=== PATIENT | male | born 1990 | race Hispanic/Latino ===

== ENCOUNTER 2018-01-27 11:28 | Inpatient (IN) | payer OTHER, SELFPAY ==
[2018-01-27 12:05] LABS: #Eosinphils 0.2 thou/uL (0.0-0.7); #Monocytes 1.3 thou/uL (0.11-0.59); #Neutrophils 9.4 thou/uL (1.40-6.50); %Basophils 0.3 % (0.0-1.0); %Eosinophils 1.9 % (0.0-10.0); %Lymphocytes 15.6 % (21.0-51.0); %Monocytes 9.7 % (0.0-10.0); %Neutrophils 72.5 % (42.0-75.0); Hemoglobin 16.3 g/dL (14.0-18.0); Mean Corpuscular HGB CONC 35.9 g/dL (32.0-36.0); Mean Corpuscular Hemoglobin 32.5 pg (27.0-31.0); Mean Corpuscular Volume 90.5 fL (78.0-98.0); Mean Platelet Volume 7.1 fL (7.4-10.4); Platelet Count 223 thou/uL (130-400); RBC Distribution Width 11.1 % (11.5-14.5); Red Blood Cell (RBC) Count 5.01 mill/uL (4.70-6.10); White Blood Cell (WBC) Count 12.9 thou/uL (4.8-10.8)
[2018-01-27 12:17] LABS: ALT (SGPT) 90 U/L (8-55); AST (SGOT) 43 U/L (5-34); Albumin 4.7 g/dL (3.5-5.0); Alkaline Phosphatase 101 U/L (40-150); Anion Gap 15 mmol/L (10-20); BUN (Urea Nitrogen) 20 mg/dL (8.9-20.6); Bilirubin, Total 1.1 mg/dL (0.2-1.2); Calc. Creatinine Clearance 0 mL/min (70-130); Calcium 9.7 mg/dL (7.8-10.44); Carbon Dioxide 24 mmol/L (22-29); Chloride 97 mmol/L (98-107); Estimated GFR-MDRD 83; Globulin 3.7 g/dL (2.4-3.5); Glucose 137 mg/dL (70-105); Lipase 839 U/L (8-78); Potassium 3.7 mmol/L (3.5-5.1); Protein, Total 8.4 g/dL (6.0-8.3); Sodium 132 mmol/L (136-145)
[2018-01-27] MEDS ORDERED: Ondansetron HCl/PF 4 MG/2 ML Vial ONE (12:21)
[2018-01-27] MEDS ORDERED: Pantoprazole 40 MG VIAL ONE (12:21)
[2018-01-27] MEDS ORDERED: Morphine 4 MG/ML VIAL ONE ×2 (12:21→14:27)
[2018-01-27 13:01] LABS: Bilirubin Small (Negative); Blood, Urine Negative (Negative); Clarity CLOUDY (Clear); Glucose, Urine (Dipstick) Negative (Negative); Leukocyte Negative (Negative); Nitrite Negative (Negative); Protein, Urine (Dipstick) 100 mg/dL (Neg-Trace); Specific Gravity, Urine 1.023 (1.002-1.036)
[2018-01-27 13:03] LABS: Bacteria/HPF None Seen HPF (None Seen); Hyaline Casts/LPF 7-10 HYALINE CAST LPF (0-3 Hyaline); Pathc Cast-AUWi Flag 1.59 (0-2.49); Squamous Epithelial 0-3 HPF (0-3); WBC/HPF 0-3 HPF (0-3)
--- NOTE | 2018-01-27 13:52 | ULT ---
GALLBLADDER ULTRASOUND: INDICATION: Upper abdominal pain. FINDINGS: There is increased echogenicity of the hepatic parenchyma. The liver is prominent in size measuring 21 cm in length. There is no acute gallbladder pathology. Man's sign is reported as negative. T here is borderline size of the common duct at 6 mm. No ascites. IMPRESSION: 1. Findings indicate hepatic steatosis which can be further assessed with liver function enzymes. 2. No acute gallbladder pathology. There is borderline size of the imaged common duct. Recommend c orrelation with biliary laboratory values. POS: [facility]
[2018-01-27 14:25] LABS: Magnesium 2.5 mg/dL (1.6-2.6); Phosphorus 3.3 mg/dL (2.3-4.7)
[2018-01-27] MEDS ORDERED: Multivitamins, Adult 10 ML, Thiamine HCl 100 MG, Folic Acid 1 MG in Dextrose 5 %-0.45 %... IV SCH (14:30)
[2018-01-27] MEDS ORDERED: Dextrose 5 %-0.45 % NaCl 1,000 ML IV SCH (16:15)
[2018-01-27] MEDS ORDERED: Ondansetron ODT 4 MG TAB SL PRN (16:16)
[2018-01-27] MEDS ORDERED: Acetaminophen 325 MG TAB PO PRN ×2 (16:16→17:23)
[2018-01-27] MEDS ORDERED: HYDROcodone/Acetaminophen 5/325 mg Tablet PO PRN ×2 (16:16)
[2018-01-27] MEDS ORDERED: Ondansetron HCl/PF 4 MG/2 ML Vial IVP PRN ×2 (16:16→17:23)
[2018-01-27] MEDS ORDERED: Lorazepam 2 MG/ML VIAL SLOW IVP PRN ×2 (16:16→18:53)
[2018-01-27] MEDS ORDERED: Morphine 4 MG/ML VIAL SLOW IVP PRN (16:16)
[2018-01-27 16:56] VITALS: BMI 30.1
[2018-01-27] MEDS ORDERED: Calcium Carbonate 500 MG ChewTAB PO PRN (17:23)
[2018-01-27] MEDS ORDERED: Mag-Al 1200 mg/1200 mg/30 ML UDCUP PO PRN (17:23)
[2018-01-27] MEDS ORDERED: Lorazepam 1 MG TAB PO PRN (17:23)
[2018-01-27] MEDS ORDERED: Ondansetron ODT 4 MG TAB PO PRN (17:23)
[2018-01-27] MEDS: Dextrose 5 %-0.45 % NaCl 1,000 ML IV SCH (18:29)
[2018-01-27] MEDS ORDERED: hydrALAZINE 20 MG/ML VIAL SLOW IVP PRN (19:00)
--- NOTE | 2018-01-27 19:46 | HP ---
DATE OF ADMISSION: 01/27/2018 PRIMARY CARE PHYSICIAN: [facility]. CHIEF COMPLAINT: Abdominal discomfort of 3 days' duration. HISTORY OF PRESENT ILLNESS: Patient is a 27-year-old male with heavy alcohol abuse who presented to the hospital with sudden onset of epigastric pain that started 3 days ago. He felt nauseous; however, denies any vomiting. He is unable to eat due to pain. The pain gets worse with eating. He denies any diarrhea, hematochezia, melena or hematemesis. He drinks up to 12-pack beer on a daily basis. No fever or chills reported. He denies any relieving factor. His last alcohol drink was 3 days ago. PAST MEDICAL HISTORY: Reviewed with the patient and none. PAST SURGICAL HISTORY: Reviewed with the patient and none. ALLERGIES: Patient denies any drug allergies. CURRENT HOME MEDICATIONS: Reviewed with the patient and none. SOCIAL HISTORY: Patient drinks up to 12 pack beer on a daily basis. No smoking or drug use. FAMILY HISTORY: Negative for heart disease or GI issues. REVIEW OF SYSTEMS: The following complete review of systems was negative, unless otherwise mentioned in the HPI or below: Constitutional: Weight loss or gain, ability to conduct usual activities. Skin: Rash, itching. Eyes: Double vision, pain. ENT/Mouth: Nose bleeding, neck stiffness, pain, tenderness. Cardiovascular: Palpitations, dyspnea on exertion, orthopnea. Respiratory: Shortness of breath, wheezing, cough, hemoptysis, fever or night sweats. Gastrointestinal: Poor appetite, abdominal pain, heartburn, nausea, vomiting, constipation, or diarrhea. Genitourinary: Urgency, frequency, dysuria, nocturia. Musculoskeletal: Pain, swelling. Neurologic/Psychiatric: Anxiety, depression. Allergy/Immunologic: Skin rash, bleeding tendency. PHYSICAL EXAMINATION: VITAL SIGNS: In the emergency room showed temperature 99.3, respirations 18, pulse rate of 84, blood pressure 147/106 with O2 saturation 96% on room air. GENERAL: A 27-year-old male in mild distress due to abdominal discomfort. HEENT: Head atraumatic, normocephalic, sclerae are anicteric. Dry mucous membrane, no oral lesion. NECK: Supple, no JVD, no carotid bruit. LUNGS: Clear to auscultation bilaterally, no wheezing, rales or rhonchi. HEART: S1, S2 present. Regular rate and rhythm. No murmur, rubs, or gallops appreciated. ABDOMEN: Soft, diffuse tenderness mainly over the epigastric region, no rebound , guarding, no costovertebral angle tenderness. EXTREMITIES: No edema or calf tenderness. NEUROLOGIC: Grossly nonfocal, moves all four extremities. PSYCHIATRY: Alert, awake, oriented x3. SKIN: Warm and dry. LYMPH NODES: No palpable lymph nodes in the neck. PERIPHERAL VASCULAR: Radial pulses palpable bilaterally. MUSCULOSKELETAL: No joint swelling or tenderness. LABORATORY AND X-RAY FINDINGS: CBC showed WBC 12.9 with hemoglobin 16.3, hematocrit 45.3, platelets 223. Chemistry showed sodium 132, potassium 3.7, chloride 97, bicarbonate 24, BUN 20, creatinine 1.06, AST 43, ALT 90. CRP 17.6 , triglyceride 148, lipase 839. Urinalysis showed hyaline cast. Right upper quadrant ultrasound was negative for cholelithiasis. It showed findings consistent with hepatic steatosis. IMPRESSION AND PLAN: 1. SIRS due to Acute alcoholic pancreatitis. 2. Leukocytosis secondary to #1. 3. Obesity with a BMI 30.1. 4. Chronic alcoholism. 5. Abnormal liver function tests secondary to chronic alcohol use. 6. Hepatic steatosis, on ultrasound. 7. Hyponatremia, probably secondary to dehydration. 8. Elevated inflammatory markers. PLAN: Patient will be monitored on the medical floor. We will get vitals every 4 hourly. We will check orthostatic vitals every morning. We will start him on IV fluids with dextrose at 200 mL an hour. Gastrointestinal prophylaxis. Pain control. Alcohol withdrawal protocol. Anti-emetics. We will repeat labs and lipase in a.m. Plan of care was discussed with the patient and he stated understanding. Patient was extensively counseled to quit alcohol abuse. MARTÍN
[2018-01-27] MEDS: Famotidine/PF 20 mg/2ml Vial SLOW IVP SCH (21:25)
[2018-01-28] MEDS: Dextrose 5 %-0.45 % NaCl 1,000 ML IV SCH ×6 (01:45→20:37)
[2018-01-28 04:57] LABS: ALT (SGPT) 69 U/L (8-55); AST (SGOT) 40 U/L (5-34); Albumin 3.9 g/dL (3.5-5.0); Alkaline Phosphatase 77 U/L (40-150); Anion Gap 12 mmol/L (10-20); BUN (Urea Nitrogen) 11 mg/dL (8.9-20.6); Bilirubin, Total 0.8 mg/dL (0.2-1.2); Calc. Creatinine Clearance 159 mL/min (70-130); Calcium 9.2 mg/dL (7.8-10.44); Carbon Dioxide 26 mmol/L (22-29); Chloride 101 mmol/L (98-107); Estimated GFR-MDRD Greater than 90; Globulin 3.1 g/dL (2.4-3.5); Glucose 169 mg/dL (70-105); Lipase 585 U/L (8-78); Potassium 3.6 mmol/L (3.5-5.1); Sodium 135 mmol/L (136-145)
[2018-01-28] MEDS: Multivit, Therapeutic 1 TAB PO SCH (08:53)
[2018-01-28] MEDS: Folic Acid 1 MG TAB PO SCH (08:53)
[2018-01-28] MEDS: Famotidine/PF 20 mg/2ml Vial SLOW IVP SCH ×2 (08:53→20:36)
--- NOTE | 2018-01-28 18:59 | PDOC.PN ---
- Subjective Encounter Start Date: 01/28/18 Encounter Start Time: 16:30 Patient seen and examined for Pancreatitis. Abd pain 09/16. No N/V. No new complaints. No overnight events - Objective Resuscitation Status: Resuscitation Status FULL:Full Resuscitation MAR Reviewed: Yes Vital Signs & Weight: Vital Signs (12 hours) Temp Pulse Resp BP BP Pulse Ox 01/28/18 16:16 98.5 F 62 16 142/85 H 98 01/28/18 12:30 98.1 F 64 16 139/88 94 L 01/28/18 12:00 139/88 01/28/18 08:00 99.1 F 63 16 118/72 98 01/28/18 07:44 99.1 F 63 16 118/72 98 Weight Weight 198 lb I&O: 01/27/18 01/28/18 01/29/18 06:59 06:59 06:59 Intake Total 1383 2400 Output Total 450 Balance 933 2400 Result Diagrams: 01/27/18 11:48 01/28/18 04:23 Phys Exam - Physical Examination Constitutional: NAD Respiratory: no wheezing, no rales, no rhonchi, clear to auscultation bilateral Cardiovascular: RRR, no significant murmur, no rub no heaves/pulsations Gastrointestinal: soft, no distention, positive bowel sounds minimal epig tenderness Musculoskeletal: no edema, pulses present Neurological: non-focal, normal sensation, moves all 4 limbs Psychiatric: normal affect, A&O x 3 Dx/Plan - Plan DVT proph w/SCDs IMPRESSION: 1. SIRS due to Acute alcoholic pancreatitis. 2. Leukocytosis secondary to #1. 3. Obesity with a BMI 30.1. 4. Chronic alcoholism. 5. Abnormal liver function tests secondary to chronic alcohol use. 6. Hepatic steatosis, on ultrasound. 7. Hyponatremia, probably secondary to dehydration. 8. Elevated inflammatory markers. PLAN: Reduce IVF to 125 ml/hr AM labs Cont Morphine PRN Try clear liqd diet Cont alcohol withdrawal protocol Cont Thiamine/Folic acid/MVM Cont other meds as below Laboratory Tests 01/27/18 01/28/18 11:48 04:23 AST 40 H ALT 69 H Amylase 165.0 H Lipase 839 H 585 H Review of Systems - Review of Systems Respiratory: negative: Cough, Dry, Shortness of Breath, Hemoptysis, SOB with Excertion, Pleuritic Pain, Sputum, Wheezing Cardiovascular: negative: chest pain, palpitations, orthopnea, paroxysmal nocturnal dyspnea, edema, light headedness, other Gastrointestinal: Abdominal Pain. negative: Nausea, Vomiting, Diarrhea, Constipation, Melena, Hematochezia, Other - Medications/Allergies Allergies/Adverse Reactions: Allergies Allergy/AdvReac Type Severity Reaction Status Date / Time No Known Allergies Allergy Verified 01/27/18 16:59 Medications: Current Medications Acetaminophen (Tylenol) 650 mg PO Q4H PRN PRN Reason: Headache/Fever or Pain Al Hydroxide/Mg Hydroxide (Maalox) 30 ml PO Q6H PRN PRN Reason: Heartburn or Indigestion Calcium Carbonate (Tums) 1,000 mg PO Q4H PRN PRN Reason: Heartburn or Indigestion Famotidine (Pepcid) 20 mg SLOW IVP Q12HR [facility] Last Admin: 01/28/18 08:53 Dose: 20 mg Folic Acid (Folvite) 1 mg PO DAILY [facility] Last Admin: 01/28/18 08:53 Dose: 1 mg Hydralazine HCl (Apresoline) 10 mg SLOW IVP Q4H PRN PRN Reason: SBP Greater Than 180 Dextrose/Sodium Chloride (D5 1/2 Ns) 1,000 mls @ 125 mls/hr IV .Q8H [facility] Lorazepam (Ativan) 1 mg PO Q4H PRN PRN Reason: ASE >=9 Lorazepam (Ativan) 1 mg SLOW IVP Q4H PRN PRN Reason: ASE >=9 Morphine Sulfate (Morphine) 2 mg SLOW IVP Q4H PRN PRN Reason: Pain Stop: 01/29/18 17:24 Last Admin: 01/27/18 21:26 Dose: 2 mg Multivitamins (Theragran) 1 tab PO DAILY [facility] Last Admin: 01/28/18 08:53 Dose: 1 tab Ondansetron HCl (Zofran Odt) 4 mg PO Q6H PRN PRN Reason: Nausea/Vomiting Ondansetron HCl (Zofran) 4 mg IVP Q6H PRN PRN Reason: Nausea/Vomiting Thiamine HCl (Thiamine) 100 mg PO DAILY [facility] Last Admin: 01/28/18 08:53 Dose: 100 mg
[2018-01-29] MEDS: Dextrose 5 %-0.45 % NaCl 1,000 ML IV SCH ×3 (04:38→20:50)
[2018-01-29 05:46] LABS: Anion Gap 10 mmol/L (10-20); BUN (Urea Nitrogen) 6 mg/dL (8.9-20.6); Calc. Creatinine Clearance 177 mL/min (70-130); Calcium 9.1 mg/dL (7.8-10.44); Carbon Dioxide 27 mmol/L (22-29); Chloride 104 mmol/L (98-107); Estimated GFR-MDRD Greater than 90; Glucose 138 mg/dL (70-105); Lipase 963 U/L (8-78); Magnesium 2.1 mg/dL (1.6-2.6); Potassium 3.7 mmol/L (3.5-5.1); Sodium 137 mmol/L (136-145)
[2018-01-29] MEDS: Multivit, Therapeutic 1 TAB PO SCH (08:38)
[2018-01-29] MEDS: Folic Acid 1 MG TAB PO SCH (08:38)
[2018-01-29] MEDS: Famotidine/PF 20 mg/2ml Vial SLOW IVP SCH (10:02)
[2018-01-29] MEDS: Famotidine 20 MG TAB PO SCH (20:50)
--- NOTE | 2018-01-29 22:47 | PDOC.PN ---
- Subjective Encounter Start Date: 01/29/18 Encounter Start Time: 14:00 Patient seen and examined for Acute Pancreatitis. No new complaints. No overnight events - Objective Resuscitation Status: Resuscitation Status FULL:Full Resuscitation MAR Reviewed: Yes Vital Signs & Weight: Vital Signs (12 hours) Temp Pulse Resp BP BP BP BP 01/29/18 20:33 97.5 F L 54 L 18 140/85 01/29/18 20:00 97.5 F L 54 L 18 01/29/18 17:08 98.3 F 72 16 147/90 H 167/95 H 160/81 H 01/29/18 16:00 147/90 H 01/29/18 12:00 126/76 01/29/18 11:12 98.2 F 53 L 18 126/76 Pulse Ox 01/29/18 20:33 99 01/29/18 20:00 01/29/18 17:08 99 01/29/18 16:00 01/29/18 12:00 01/29/18 11:12 99 Weight Weight 198 lb I&O: 01/28/18 01/29/18 01/30/18 06:59 06:59 06:59 Intake Total 1383 3900 2400 Output Total 450 Balance 933 3900 2400 Result Diagrams: 01/30/18 04:09 01/30/18 04:09 Additional Labs: Laboratory Tests 01/28/18 01/29/18 04:23 03:36 Amylase 165.0 H Lipase 585 H 963 H Phys Exam - Physical Examination Constitutional: NAD Respiratory: no wheezing, no rales, no rhonchi, clear to auscultation bilateral Cardiovascular: RRR, no significant murmur, no rub no heaves Gastrointestinal: soft, no distention, positive bowel sounds mild epig tenderness, No rebound Musculoskeletal: no edema Neurological: moves all 4 limbs Dx/Plan - Plan DVT proph w/SCDs IMPRESSION: 1. SIRS due to Acute alcoholic pancreatitis. 2. Leukocytosis secondary to #1. 3. Obesity with a BMI 30.1. 4. Chronic alcoholism. on ASE protocol 5. Abnormal liver function tests secondary to chronic alcohol use. 6. Hepatic steatosis, on ultrasound. 7. Hyponatremia, probably secondary to dehydration. 8. Elevated inflammatory markers. PLAN: Cont IVF at 125 ml/hr Cont clear liqd diet AM labs Cont Morphine PRN Cont alcohol withdrawal protocol Cont Thiamine/Folic acid/MVM Cont other meds as below Consult GI due to rising Lipase level Review of Systems - Review of Systems Respiratory: negative: Cough, Dry, Shortness of Breath, Hemoptysis, SOB with Excertion, Pleuritic Pain, Sputum, Wheezing Cardiovascular: negative: chest pain, palpitations, orthopnea, paroxysmal nocturnal dyspnea, edema, light headedness, other - Medications/Allergies Allergies/Adverse Reactions: Allergies Allergy/AdvReac Type Severity Reaction Status Date / Time No Known Allergies Allergy Verified 01/27/18 16:59 Medications: Current Medications Acetaminophen (Tylenol) 650 mg PO Q4H PRN PRN Reason: Headache/Fever or Pain Al Hydroxide/Mg Hydroxide (Maalox) 30 ml PO Q6H PRN PRN Reason: Heartburn or Indigestion Calcium Carbonate (Tums) 1,000 mg PO Q4H PRN PRN Reason: Heartburn or Indigestion Famotidine (Pepcid) 20 mg PO BID [facility] Last Admin: 01/29/18 20:50 Dose: 20 mg Folic Acid (Folvite) 1 mg PO DAILY [facility] Last Admin: 01/29/18 08:38 Dose: 1 mg Hydralazine HCl (Apresoline) 10 mg SLOW IVP Q4H PRN PRN Reason: SBP Greater Than 180 Dextrose/Sodium Chloride (D5 1/2 Ns) 1,000 mls @ 125 mls/hr IV .Q8H [facility] Last Admin: 01/29/18 20:50 Dose: 1,000 mls Lorazepam (Ativan) 1 mg PO Q4H PRN PRN Reason: ASE >=9 Morphine Sulfate (Morphine) 2 mg SLOW IVP Q4H PRN PRN Reason: Pain Stop: 01/31/18 13:50 Multivitamins (Theragran) 1 tab PO DAILY [facility] Last Admin: 01/29/18 08:38 Dose: 1 tab Ondansetron HCl (Zofran Odt) 4 mg PO Q6H PRN PRN Reason: Nausea/Vomiting Ondansetron HCl (Zofran) 4 mg IVP Q6H PRN PRN Reason: Nausea/Vomiting Thiamine HCl (Thiamine) 100 mg PO DAILY [facility] Last Admin: 01/29/18 08:38 Dose: 100 mg
--- NOTE | 2018-01-30 01:11 | CON ---
DATE OF CONSULTATION: 01/29/2018 REASON FOR CONSULTATION: Pancreatitis. HISTORY OF PRESENT ILLNESS: Mr. Schmidt was admitted to the hospital on 01/27/2018 from the emergen cy room. He reports for about 2-3 days before admission he had epigastric pain, constant. It was no nradiating. He was drinking about 12-pack of beer a day. He states he has never had anything like t his before and he has never been in the hospital for. He had no hematemesis or nausea or vomiting. Presently, he has only pain if he presses in the area and he is getting his appetite back in fact the stomach is grumbling. He was on n.p.o. and then started on liquids yesterday, but today his lipase went up to a little bit. The patient denies any family history of pancreatitis. Denies any history of IV drug use or smoking or taking other medications. PAST MEDICAL HISTORY: Negative. PAST SURGICAL HISTORY: Negative. MEDICATIONS AT HOME: None. PRESENT MEDICATIONS: Tylenol, D5 half normal at 125 an hour, Pepcid, presentlymorphine, Theragran, Z ofran, thiamine, and multivitamin. FAMILY HISTORY: Negative for pancreatic disease. PHYSICAL EXAMINATION: VITAL SIGNS: Temperature is 98, pulse 72 and 67 on admission, blood pressure 160/81. GENERAL: He is sitting comfortably in bed. He has got a tattoo on his left arm. He is in no distre ss. He is alert and oriented. Conversation is through a conductor sleeping car. He speaks Ukrainian and [place]. LUNGS: Clear. HEART: Regular rate and rhythm without clicks or murmurs. ABDOMEN: Soft, nontender, without palpable hepatosplenomegaly. SKIN: Without rash or lesions. There is no evidence of bruising in the flank or periumbilical area. Skin is warm and dry. NEUROLOGIC: Intact. No evidence of hyperreflexia or asterixis. LABORATORY STUDIES: White count was 12.9 on admission, hemoglobin 16.3 on admission, platelet count on admission. Sodium 137, potassium 3.7, chloride 104, bicarbonate 26, BUN 6, creatinine 0.7. Lipase was 839 on admission, 585 yesterday and 963 this morning. Bilirubin is 1.1. AST and ALT wer e 43 and 90, that were 40 and 69 today. Bilirubin is 0.8. ASSESSMENT AND PLAN: 1. Pancreatitis, likely alcoholic pancreatitis. He did have a normal triglycerides on admission and had no evidence of gallstones on ultrasound. He did have some fatty liver. 2. Elevated ALT and AST, ALT greater than AST with some fatty liver, there was increased echogenicit y of the liver and slight hepatomegaly. 3. Overall, the patient is improved clinically, but his lipase has bumped up a bit. He has tolerate d liquids. He was going to go to full, but however they bumped back to liquids again. I suspect ful l recovery. He is not tachycardic. He has no signs of systemic inflammatory response and seems to b e well hydrated. I would check his lipase again tomorrow and CBC and renal function. If these gisela nue to improve, I think we can go ahead and advance him to a bland diet.
[2018-01-30] MEDS: Dextrose 5 %-0.45 % NaCl 1,000 ML IV SCH ×3 (02:14→19:08)
[2018-01-30 04:26] LABS: #Basophils 0.1 thou/uL (0.0-0.2); #Eosinphils 0.5 thou/uL (0.0-0.7); #Lymphocytes 1.8 thou/uL (1.20-3.40); #Monocytes 0.7 thou/uL (0.11-0.59); #Neutrophils 3.2 thou/uL (1.40-6.50); %Basophils 1.1 % (0.0-1.0); %Eosinophils 7.6 % (0.0-10.0); %Lymphocytes 29.2 % (21.0-51.0); %Monocytes 10.8 % (0.0-10.0); %Neutrophils 51.4 % (42.0-75.0); Hemoglobin 14.7 g/dL (14.0-18.0); Mean Corpuscular Hemoglobin 31.4 pg (27.0-31.0); Mean Corpuscular Volume 92.2 fL (78.0-98.0); Mean Platelet Volume 6.7 fL (7.4-10.4); Platelet Count 258 thou/uL (130-400); RBC Distribution Width 10.9 % (11.5-14.5); Red Blood Cell (RBC) Count 4.69 mill/uL (4.70-6.10); White Blood Cell (WBC) Count 6.2 thou/uL (4.8-10.8)
[2018-01-30 05:18] LABS: Anion Gap 12 mmol/L (10-20); BUN (Urea Nitrogen) 5 mg/dL (8.9-20.6); Calc. Creatinine Clearance 170 mL/min (70-130); Calcium 9.3 mg/dL (7.8-10.44); Carbon Dioxide 24 mmol/L (22-29); Chloride 107 mmol/L (98-107); Estimated GFR-MDRD Greater than 90; Glucose 139 mg/dL (70-105); Magnesium 2.1 mg/dL (1.6-2.6); Potassium 3.9 mmol/L (3.5-5.1); Sodium 139 mmol/L (136-145)
[2018-01-30 05:39] LABS: Lipase 2511 U/L (8-78)
[2018-01-30] MEDS: Famotidine 20 MG TAB PO SCH ×2 (10:02→19:55)
[2018-01-30] MEDS: Folic Acid 1 MG TAB PO SCH (10:02)
[2018-01-30] MEDS: Multivit, Therapeutic 1 TAB PO SCH (10:02)
--- NOTE | 2018-01-30 11:41 | CT ---
CT ABDOMEN WITH CONTRAST: Date: 01/30/18 HISTORY: Alcoholic pancreatitis. COMPARISON: Ultrasound dated 01/27/18. FINDINGS: Lung bases are clear. No pericardial effusion. Diffuse hepatic steatosis. There is acute interstitial edematous pancreatitis of the pancreatic body and tail. No fluid collecti on. No evidence of necrosis. The splenic artery and splenic vein are both patent. Adrenal glands are normal. No hydronephrosis. The aortic contour is nonaneurysmal. Reactive changes of the second and third portions of the duodenum. IMPRESSION: 1. Interstitial edematous pancreatitis without evidence of necrosis. No walled off fluid collection nor pseudocyst formation. 2. Diffuse hepatic steatosis. POS: [facility]
[2018-01-30] MEDS ORDERED: ISOVUE-370 76%-LOCM 1 ML ONE (14:49)
--- NOTE | 2018-01-30 21:57 | PDOC.PN ---
- Subjective Encounter Start Date: 01/30/18 Encounter Start Time: 08:30 Patient seen and examined for Acute Pancreatitis. Mild Epig pain+No new complaints. No overnight events - Objective Resuscitation Status: Resuscitation Status FULL:Full Resuscitation MAR Reviewed: Yes Vital Signs & Weight: Vital Signs (12 hours) Temp Pulse Resp BP BP BP BP 01/30/18 20:48 100.6 F H 69 18 170/89 H 01/30/18 20:00 100.6 F H 69 20 01/30/18 16:00 98.1 F 54 L 20 157/89 H 157/89 H 01/30/18 12:00 177/90 H 01/30/18 11:00 98.5 F 55 L 18 177/90 H Pulse Ox 01/30/18 20:48 99 01/30/18 20:00 01/30/18 16:00 98 01/30/18 12:00 01/30/18 11:00 99 Weight Weight 198 lb I&O: 01/29/18 01/30/18 01/31/18 06:59 06:59 06:59 Intake Total 3900 3900 2575 Balance 3900 3900 2575 Result Diagrams: 01/30/18 04:09 01/30/18 04:09 Additional Labs: Laboratory Tests 01/28/18 01/29/18 01/30/18 04:23 03:36 04:09 Amylase 165.0 H Lipase 585 H 963 H 2511 H Phys Exam - Physical Examination Constitutional: NAD Respiratory: no wheezing, no rales, no rhonchi, clear to auscultation bilateral Cardiovascular: RRR, no rub no heaves/pulsations Gastrointestinal: soft, no distention, positive bowel sounds Epig tenderness/ No rebound Neurological: moves all 4 limbs Dx/Plan - Plan out of bed/ambulate, DVT proph w/SCDs IMPRESSION: 1. SIRS due to Acute alcoholic pancreatitis. 2. Leukocytosis secondary to #1. 3. Obesity with a BMI 30.1. 4. Chronic alcoholism. on ASE protocol 5. Abnormal liver function tests secondary to chronic alcohol use. 6. Hepatic steatosis, on ultrasound. 7. Hyponatremia, probably secondary to dehydration. 8. Elevated inflammatory markers. PLAN: CT Abd due to rising lipase GI followign Cont IVF Cont clear liqd diet AM labs Cont alcohol withdrawal protocol /thiamine/Folic acid/MVM Cont other meds as below Review of Systems - Review of Systems Respiratory: negative: Cough, Dry, Shortness of Breath, Hemoptysis, SOB with Excertion, Pleuritic Pain, Sputum, Wheezing Cardiovascular: negative: chest pain, palpitations, orthopnea, paroxysmal nocturnal dyspnea, edema, light headedness, other - Medications/Allergies Allergies/Adverse Reactions: Allergies Allergy/AdvReac Type Severity Reaction Status Date / Time No Known Allergies Allergy Verified 01/27/18 16:59 Medications: Current Medications Acetaminophen (Tylenol) 650 mg PO Q4H PRN PRN Reason: Headache/Fever or Pain Al Hydroxide/Mg Hydroxide (Maalox) 30 ml PO Q6H PRN PRN Reason: Heartburn or Indigestion Calcium Carbonate (Tums) 1,000 mg PO Q4H PRN PRN Reason: Heartburn or Indigestion Last Admin: 01/30/18 18:00 Dose: 1,000 mg Famotidine (Pepcid) 20 mg PO BID [facility] Last Admin: 01/30/18 19:55 Dose: 20 mg Folic Acid (Folvite) 1 mg PO DAILY [facility] Last Admin: 01/30/18 10:02 Dose: 1 mg Hydralazine HCl (Apresoline) 10 mg SLOW IVP Q4H PRN PRN Reason: SBP Greater Than 180 Dextrose/Sodium Chloride (D5 1/2 Ns) 1,000 mls @ 125 mls/hr IV .Q8H [facility] Last Admin: 01/30/18 19:08 Dose: 1,000 mls Lorazepam (Ativan) 1 mg PO Q4H PRN PRN Reason: ASE >=9 Morphine Sulfate (Morphine) 2 mg SLOW IVP Q4H PRN PRN Reason: Pain Stop: 01/31/18 13:50 Last Admin: 01/30/18 19:56 Dose: 2 mg Multivitamins (Theragran) 1 tab PO DAILY [facility] Last Admin: 01/30/18 10:02 Dose: 1 tab Ondansetron HCl (Zofran Odt) 4 mg PO Q6H PRN PRN Reason: Nausea/Vomiting Ondansetron HCl (Zofran) 4 mg IVP Q6H PRN PRN Reason: Nausea/Vomiting Thiamine HCl (Thiamine) 100 mg PO DAILY [facility] Last Admin: 01/30/18 10:02 Dose: 100 mg
[2018-01-31] MEDS: Dextrose 5 %-0.45 % NaCl 1,000 ML IV SCH ×3 (02:19→17:18)
--- NOTE | 2018-01-31 02:39 | PRG ---
DATE OF SERVICE: 01/30/2018 SUBJECTIVE: Mr. Schmidt is not complaining of any pain. He has lipase and prior history of a CAT s can. PHYSICAL EXAMINATION: VITAL SIGNS: Temperature is 98, pulse 137/98. ABDOMEN: Soft, slightly tender in epigastric. No rebound or guarding. EXTREMITIES: No clubbing, cyanosis or edema. LABORATORY STUDIES: White count 6.2, hemoglobin 14.7 down from 16.3 on admission, platelet count 258 . Sodium 138, potassium 3.9, BUN and creatinine are 5 and 0.82, glucose 139, magnesium 2.1, lipase [address] scan shows just interstitial inflammation of the pancreas, somewhat appearance of the sausage panc reas and autoimmune pancreatitis would be considered, although there is no evidence of pseudocyst or fluid collection in the abdomen and pelvis. RECOMMENDATIONS: 1. Continue on liquid diet. 2. We will continue IV fluids. 3. We will continue ulcer prophylaxis, does receive multivitamin, thiamine, and folate. 4. We will monitor lipase ____ trend down at least before he goes home. ____ n.p.o. again.
[2018-01-31 05:24] LABS: ALT (SGPT) 81 U/L (8-55); AST (SGOT) 48 U/L (5-34); Albumin 3.7 g/dL (3.5-5.0); Alkaline Phosphatase 76 U/L (40-150); Anion Gap 10 mmol/L (10-20); BUN (Urea Nitrogen) Less than 4 mg/dL (8.9-20.6); Bilirubin, Total 0.6 mg/dL (0.2-1.2); Calc. Creatinine Clearance 155 mL/min (70-130); Carbon Dioxide 28 mmol/L (22-29); Chloride 101 mmol/L (98-107); Estimated GFR-MDRD Greater than 90; Globulin 3.1 g/dL (2.4-3.5); Glucose 129 mg/dL (70-105); Potassium 3.4 mmol/L (3.5-5.1); Protein, Total 6.8 g/dL (6.0-8.3); Sodium 136 mmol/L (136-145)
[2018-01-31 05:39] LABS: Lipase 3143 U/L (8-78)
[2018-01-31] MEDS: Folic Acid 1 MG TAB PO SCH (08:14)
[2018-01-31] MEDS: Famotidine 20 MG TAB PO SCH ×2 (08:14→19:49)
[2018-01-31] MEDS: Multivit, Therapeutic 1 TAB PO SCH (08:15)
[2018-01-31 12:41] LABS: ANA Symphony (Qualitative) Negative (Negative); dsDNA IgG Antibody 5.8 IU/mL (<10 Negative)
--- NOTE | 2018-01-31 14:50 | PDOC.PN ---
- Subjective Encounter Start Date: 01/31/18 Encounter Start Time: 14:48 Subjective: c/o persistant mild to mederate Abd pain .no nausea/vomiting - Objective Resuscitation Status: Resuscitation Status FULL:Full Resuscitation MAR Reviewed: Yes Vital Signs & Weight: Vital Signs (12 hours) Temp Pulse Resp BP BP BP Pulse Ox 01/31/18 12:00 141/89 H 01/31/18 11:00 98.6 F 68 18 141/89 H 98 01/31/18 08:00 98.5 F 78 20 149/98 H 174/98 H 98 01/31/18 04:00 98.3 F 77 16 132/78 132/78 98 Weight Weight 198 lb I&O: 01/30/18 01/31/18 02/01/18 06:59 06:59 06:59 Intake Total 3900 4075 Balance 3900 4075 Result Diagrams: 01/30/18 04:09 01/31/18 04:11 Additional Labs: Laboratory Tests 01/27/18 01/27/18 01/28/18 11:48 11:48 04:23 WBC 12.9 H AST 43 H 40 H ALT 90 H 69 H Lipase 839 H 585 H CALVIN Screen CALVIN IgG Screen Anti-ds DNA IgG Ab 01/29/18 01/30/18 01/30/18 03:36 04:09 04:09 WBC 6.2 AST ALT Lipase 963 H 2511 H CALVIN Screen CALVIN IgG Screen Anti-ds DNA IgG Ab 01/31/18 01/31/18 04:11 04:11 WBC AST 48 H ALT 81 H Lipase 3143 H CALVIN Screen Negative CALVIN IgG Screen Negative Anti-ds DNA IgG Ab 5.8 labs reviewed Radiology Reviewed by me: Yes (CT Abd/pelvis- no pancreatic necrosis or psedocyst formation) Phys Exam - Physical Examination Constitutional: NAD HEENT: PERRLA, moist MMs, sclera anicteric, oral pharynx no lesions Neck: no nodes, no JVD, supple, full ROM Respiratory: no wheezing, no rales, no rhonchi, clear to auscultation bilateral Cardiovascular: RRR, no significant murmur, no rub Gastrointestinal: soft, no distention, positive bowel sounds TTP in central abdomen Musculoskeletal: no edema, pulses present Neurological: non-focal, normal sensation, moves all 4 limbs Psychiatric: normal affect, A&O x 3 Skin: no rash Dx/Plan (1) Hypokalemia Code(s): E87.6 - HYPOKALEMIA Status: Acute - Plan cont ASE protocol.MV,Thiamine,Folic acid * .IMPRESSION: 1. SIRS due to Acute alcoholic pancreatitis. 2. Leukocytosis secondary to #1. 3. Obesity with a BMI 30.1. 4. Chronic alcoholism. on ASE protocol 5. Abnormal liver function tests secondary to chronic alcohol use. 6. Hepatic steatosis, on ultrasound. 7. Hyponatremia, probably secondary to dehydration. 8. Elevated inflammatory markers. PLAN- Elevated lipase.will change to NPO. Cont IVF. monitor clinically. GI following. Workup for AIH. AM labs. hemodynamically stable. Review of Systems - Review of Systems Constitutional: weakness, malaise. negative: fever, chills, sweats, other ENT: negative: Ear Pain, Ear Discharge, Nose Pain, Nose Discharge, Nose Congestion, Mouth Pain, Mouth Swelling, Throat Pain, Throat Swelling, Other Respiratory: negative: Cough, Dry, Shortness of Breath, Hemoptysis, SOB with Excertion, Pleuritic Pain, Sputum, Wheezing Cardiovascular: negative: chest pain, palpitations, orthopnea, paroxysmal nocturnal dyspnea, edema, light headedness, other Gastrointestinal: Nausea, Abdominal Pain. negative: Vomiting, Diarrhea, Constipation, Melena, Hematochezia, Other Genitourinary: negative: Dysuria, Frequency, Incontinence, Hematuria, Retention , Other Musculoskeletal: negative: Neck Pain, Shoulder Pain, Arm Pain, Back Pain, Hand Pain, Leg Pain, Foot Pain, Other Skin: negative: Rash, Lesions, Weston, Bruising, Other Neurological: negative: Weakness, Numbness, Incoordination, Change in Speech, Confusion, Seizures, Other - Medications/Allergies Allergies/Adverse Reactions: Allergies Allergy/AdvReac Type Severity Reaction Status Date / Time No Known Allergies Allergy Verified 01/27/18 16:59 Medications: Current Medications Acetaminophen (Tylenol) 650 mg PO Q4H PRN PRN Reason: Headache/Fever or Pain Al Hydroxide/Mg Hydroxide (Maalox) 30 ml PO Q6H PRN PRN Reason: Heartburn or Indigestion Calcium Carbonate (Tums) 1,000 mg PO Q4H PRN PRN Reason: Heartburn or Indigestion Last Admin: 01/30/18 18:00 Dose: 1,000 mg Famotidine (Pepcid) 20 mg PO BID [facility] Last Admin: 01/31/18 08:14 Dose: 20 mg Folic Acid (Folvite) 1 mg PO DAILY [facility] Last Admin: 01/31/18 08:14 Dose: 1 mg Hydralazine HCl (Apresoline) 10 mg SLOW IVP Q4H PRN PRN Reason: SBP Greater Than 180 Dextrose/Sodium Chloride (D5 1/2 Ns) 1,000 mls @ 125 mls/hr IV .Q8H [facility] Last Admin: 01/31/18 09:57 Dose: 1,000 mls Lorazepam (Ativan) 1 mg PO Q4H PRN PRN Reason: ASE >=9 Multivitamins (Theragran) 1 tab PO DAILY [facility] Last Admin: 01/31/18 08:15 Dose: 1 tab Ondansetron HCl (Zofran Odt) 4 mg PO Q6H PRN PRN Reason: Nausea/Vomiting Ondansetron HCl (Zofran) 4 mg IVP Q6H PRN PRN Reason: Nausea/Vomiting Thiamine HCl (Thiamine) 100 mg PO DAILY [facility] Last Admin: 01/31/18 08:14 Dose: 100 mg
[2018-01-31] MEDS ORDERED: Potassium Chloride 40 MEQ in Sodium Chloride 0.9% 250 ML 250 ML IVPB SCH (15:15)
[2018-01-31] MEDS: D5 0.9% NS w/ 20 mEq KCl 1,000 ML IV SCH (19:49)
[2018-02-01] MEDS: D5 0.9% NS w/ 20 mEq KCl 1,000 ML IV SCH ×5 (01:18→23:12)
--- NOTE | 2018-02-01 02:54 | PRG ---
DATE OF SERVICE: 01/31/2018 SUBJECTIVE: He actually states his pain is better than yesterday. He has been up ambulating. He godoy s been n.p.o. PHYSICAL EXAMINATION: VITAL SIGNS: Temperature is up to 100.5, last night it is 100.6, blood pressure 159/91, pulse 74, re spirations 18, O2 sat 97%. LUNGS: Clear. HEART: Regular rate and rhythm. ABDOMEN: Soft, nontender. The patient's nontender. LABORATORY DATA: Labs today, his sodium 136, potassium 3.4, BUN and creatinine are 4 and 0.9, glucos e 129, AST and ALT are 49 and 81. His lipase continues to climb to 3143. Magnesium was 1.7, replace d. ASSESSMENT: Worsening lipase. He said his pain is a little better today. He is on thiamine, multiv itamin, and folate. He has been eating and back down to liquids when his lipase has gone from 100 to 2000. RECOMMENDATIONS: We will increase his IV fluids at 200 mL an hour. Recheck labs in the morning. Co chuck n.p.o. status at this time.
[2018-02-01 04:59] LABS: #Eosinphils 0.4 thou/uL (0.0-0.7); #Lymphocytes 1.8 thou/uL (1.20-3.40); #Monocytes 1.2 thou/uL (0.11-0.59); %Basophils 0.3 % (0.0-1.0); %Eosinophils 4.7 % (0.0-10.0); %Lymphocytes 21.8 % (21.0-51.0); %Monocytes 13.9 % (0.0-10.0); %Neutrophils 59.3 % (42.0-75.0); Mean Corpuscular HGB CONC 34.5 g/dL (32.0-36.0); Mean Corpuscular Hemoglobin 31.9 pg (27.0-31.0); Mean Corpuscular Volume 92.4 fL (78.0-98.0); Mean Platelet Volume 6.9 fL (7.4-10.4); Platelet Count 246 thou/uL (130-400); RBC Distribution Width 10.8 % (11.5-14.5); White Blood Cell (WBC) Count 8.4 thou/uL (4.8-10.8)
[2018-02-01 05:01] LABS: INR-International Normal Ratio 1.1; Prothrombin Time 14.7 SEC (12.0-14.7)
[2018-02-01 05:07] LABS: ALT (SGPT) 65 U/L (8-55); AST (SGOT) 36 U/L (5-34); Albumin 3.5 g/dL (3.5-5.0); Alkaline Phosphatase 72 U/L (40-150); Anion Gap 12 mmol/L (10-20); BUN (Urea Nitrogen) Less than 4 mg/dL (8.9-20.6); Bilirubin, Total 0.6 mg/dL (0.2-1.2); Calc. Creatinine Clearance 168 mL/min (70-130); Carbon Dioxide 22 mmol/L (22-29); Chloride 108 mmol/L (98-107); Estimated GFR-MDRD Greater than 90; Globulin 3.2 g/dL (2.4-3.5); Glucose 157 mg/dL (70-105); Magnesium 1.7 mg/dL (1.6-2.6); Potassium 3.7 mmol/L (3.5-5.1); Protein, Total 6.7 g/dL (6.0-8.3); Sodium 138 mmol/L (136-145)
[2018-02-01 05:21] LABS: Lipase 1393 U/L (8-78)
[2018-02-01] MEDS: Famotidine 20 MG TAB PO SCH ×2 (08:20→19:58)
[2018-02-01] MEDS: Multivit, Therapeutic 1 TAB PO SCH (08:20)
[2018-02-01] MEDS: Folic Acid 1 MG TAB PO SCH (08:21)
--- NOTE | 2018-02-01 14:33 | PDOC.PN ---
- Subjective Encounter Start Date: 02/01/18 Encounter Start Time: 14:31 Subjective: feels slightly better. abd pain persists but less -: no nausea/vomiting - Objective Resuscitation Status: Resuscitation Status FULL:Full Resuscitation MAR Reviewed: Yes Vital Signs & Weight: Vital Signs (12 hours) Temp Pulse Resp BP BP BP Pulse Ox 02/01/18 12:00 155/89 H 02/01/18 11:07 98.5 F 71 16 155/89 H 99 02/01/18 08:11 98.8 F 77 14 138/88 98 02/01/18 08:00 98.8 F 77 14 138/88 98 02/01/18 04:00 99.0 F 77 16 124/80 124/80 98 Weight Weight 198 lb I&O: 01/31/18 02/01/18 02/02/18 06:59 06:59 06:59 Intake Total 4075 3900 Balance 4075 3900 Result Diagrams: 02/01/18 04:15 02/01/18 04:15 Additional Labs: Laboratory Tests 01/27/18 01/28/18 01/29/18 11:48 04:23 03:36 Lipase 839 H 585 H 963 H 01/30/18 01/31/18 02/01/18 04:09 04:11 04:15 Lipase 2511 H 3143 H 1393 H labs reviewed Phys Exam - Physical Examination Constitutional: NAD HEENT: PERRLA, moist MMs, sclera anicteric, oral pharynx no lesions Neck: no nodes, no JVD, supple, full ROM Respiratory: no wheezing, no rales, no rhonchi, clear to auscultation bilateral Cardiovascular: RRR, no significant murmur, no rub Gastrointestinal: soft, non-tender, no distention, positive bowel sounds Musculoskeletal: no edema, pulses present Neurological: non-focal, normal sensation, moves all 4 limbs Psychiatric: normal affect, A&O x 3 Skin: no rash Dx/Plan (1) Hypokalemia Code(s): E87.6 - HYPOKALEMIA Status: Acute - Plan * .. SIRS due to Acute alcoholic pancreatitis. 2. Leukocytosis secondary to #1. 3. Obesity with a BMI 30.1. 4. Chronic alcoholism. on ASE protocol 5. Abnormal liver function tests secondary to chronic alcohol use. 6. Hepatic steatosis, on ultrasound. 7. Hyponatremia, probably secondary to dehydration. 8. Elevated inflammatory markers. Plan- discussed w GI. Lipase slightly better. will start CLD and cont IVF for now. recheck labs in am. AIH markers negative. Alcohal abstinence emphasized. Review of Systems - Review of Systems Constitutional: weakness, malaise. negative: fever, chills, sweats, other ENT: negative: Ear Pain, Ear Discharge, Nose Pain, Nose Discharge, Nose Congestion, Mouth Pain, Mouth Swelling, Throat Pain, Throat Swelling, Other Respiratory: negative: Cough, Dry, Shortness of Breath, Hemoptysis, SOB with Excertion, Pleuritic Pain, Sputum, Wheezing Cardiovascular: negative: chest pain, palpitations, orthopnea, paroxysmal nocturnal dyspnea, edema, light headedness, other Gastrointestinal: Abdominal Pain. negative: Nausea, Vomiting, Diarrhea, Constipation, Melena, Hematochezia, Other Genitourinary: negative: Dysuria, Frequency, Incontinence, Hematuria, Retention , Other Musculoskeletal: negative: Neck Pain, Shoulder Pain, Arm Pain, Back Pain, Hand Pain, Leg Pain, Foot Pain, Other Skin: negative: Rash, Lesions, Weston, Bruising, Other Neurological: negative: Weakness, Numbness, Incoordination, Change in Speech, Confusion, Seizures, Other - Medications/Allergies Allergies/Adverse Reactions: Allergies Allergy/AdvReac Type Severity Reaction Status Date / Time No Known Allergies Allergy Verified 01/27/18 16:59 Medications: Current Medications Acetaminophen (Tylenol) 650 mg PO Q4H PRN PRN Reason: Headache/Fever or Pain Al Hydroxide/Mg Hydroxide (Maalox) 30 ml PO Q6H PRN PRN Reason: Heartburn or Indigestion Calcium Carbonate (Tums) 1,000 mg PO Q4H PRN PRN Reason: Heartburn or Indigestion Last Admin: 01/30/18 18:00 Dose: 1,000 mg Famotidine (Pepcid) 20 mg PO BID [facility] Last Admin: 02/01/18 08:20 Dose: 20 mg Folic Acid (Folvite) 1 mg PO DAILY [facility] Last Admin: 02/01/18 08:21 Dose: 1 mg Hydralazine HCl (Apresoline) 10 mg SLOW IVP Q4H PRN PRN Reason: SBP Greater Than 180 Potassium Chloride/Dextrose/Sod Cl (D5 0.9% Ns W/ 20 Meq Kcl) 1,000 mls @ 200 mls/hr IV .Q5H [facility] Last Admin: 02/01/18 11:32 Dose: 1,000 mls Lorazepam (Ativan) 1 mg PO Q4H PRN PRN Reason: ASE >=9 Morphine Sulfate (Morphine) 2 mg SLOW IVP Q4H PRN PRN Reason: Moderate Pain (4-6) Last Admin: 02/01/18 06:00 Dose: 2 mg Multivitamins (Theragran) 1 tab PO DAILY [facility] Last Admin: 02/01/18 08:20 Dose: 1 tab Ondansetron HCl (Zofran Odt) 4 mg PO Q6H PRN PRN Reason: Nausea/Vomiting Ondansetron HCl (Zofran) 4 mg IVP Q6H PRN PRN Reason: Nausea/Vomiting Thiamine HCl (Thiamine) 100 mg PO DAILY [facility] Last Admin: 02/01/18 08:20 Dose: 100 mg
--- NOTE | 2018-02-01 20:24 | PRG ---
DATE OF SERVICE: 02/01/2018 SUBJECTIVE: Mr. Schmidt is up walking around. He spends most of his time up walking. He states hi s pain is better than yesterday. He is using very little pain medications. OBJECTIVE: VITAL SIGNS: Temperature is 98, pulse 82, T-max was on 01/31/2018 at 100.5, blood pressure 149/79. LUNGS: Clear. HEART: Regular rate and rhythm. ABDOMEN: Nontender. LABORATORY STUDIES: White count is down to 8.4, hemoglobin 14, platelet count 246. Electrolytes are normal. AST and ALT are 36 and 65. Lipase is down to 1393 from 3143 yesterday. ASSESSMENT: Improving pancreatitis. Continue IV fluids at 200 mL an hour. If lipase continues to d ecrease tomorrow and he is doing well, we will advance diet and hopefully he can go home. We will fo llow up tomorrow.
[2018-02-02] MEDS: D5 0.9% NS w/ 20 mEq KCl 1,000 ML IV SCH ×3 (04:45→14:39)
[2018-02-02 04:58] LABS: #Eosinphils 0.5 thou/uL (0.0-0.7); #Lymphocytes 1.9 thou/uL (1.20-3.40); #Neutrophils 4.3 thou/uL (1.40-6.50); %Basophils 0.5 % (0.0-1.0); %Lymphocytes 24.9 % (21.0-51.0); %Monocytes 13.1 % (0.0-10.0); %Neutrophils 54.7 % (42.0-75.0); Hemoglobin 14.3 g/dL (14.0-18.0); Mean Corpuscular HGB CONC 34.8 g/dL (32.0-36.0); Mean Corpuscular Hemoglobin 32.1 pg (27.0-31.0); Mean Corpuscular Volume 92.4 fL (78.0-98.0); Mean Platelet Volume 6.6 fL (7.4-10.4); Platelet Count 274 thou/uL (130-400); RBC Distribution Width 10.7 % (11.5-14.5); Red Blood Cell (RBC) Count 4.44 mill/uL (4.70-6.10); White Blood Cell (WBC) Count 7.8 thou/uL (4.8-10.8)
[2018-02-02 05:01] LABS: ALT (SGPT) 56 U/L (8-55); AST (SGOT) 30 U/L (5-34); Albumin 3.6 g/dL (3.5-5.0); Alkaline Phosphatase 69 U/L (40-150); Anion Gap 10 mmol/L (10-20); BUN (Urea Nitrogen) Less than 4 mg/dL (8.9-20.6); Bilirubin, Total 0.6 mg/dL (0.2-1.2); Calc. Creatinine Clearance 166 mL/min (70-130); Calcium 8.9 mg/dL (7.8-10.44); Carbon Dioxide 25 mmol/L (22-29); Chloride 108 mmol/L (98-107); Estimated GFR-MDRD Greater than 90; Globulin 3.2 g/dL (2.4-3.5); Glucose 156 mg/dL (70-105); Lipase 940 U/L (8-78); Magnesium 1.8 mg/dL (1.6-2.6); Phosphorus 3.6 mg/dL (2.3-4.7); Potassium 3.7 mmol/L (3.5-5.1); Protein, Total 6.8 g/dL (6.0-8.3); Sodium 139 mmol/L (136-145)
[2018-02-02] MEDS: Famotidine 20 MG TAB PO SCH ×2 (08:37→20:59)
[2018-02-02] MEDS: Multivit, Therapeutic 1 TAB PO SCH (08:37)
[2018-02-02] MEDS: Folic Acid 1 MG TAB PO SCH (08:37)
--- NOTE | 2018-02-02 13:48 | PDOC.PN ---
- Subjective Encounter Start Date: 02/02/18 Encounter Start Time: 11:30 Subjective: pt up in bed no complains - Objective Resuscitation Status: Resuscitation Status FULL:Full Resuscitation Vital Signs & Weight: Vital Signs (12 hours) Temp Pulse Resp BP BP BP Pulse Ox 02/02/18 11:59 98.8 F 64 18 158/94 H 99 02/02/18 08:00 98.3 F 68 14 143/87 H 143/87 H 97 02/02/18 04:00 98.2 F 65 18 139/86 139/86 97 Weight Weight 198 lb I&O: 02/01/18 02/02/18 02/03/18 06:59 06:59 06:59 Intake Total 3900 5700 Balance 3900 5700 Result Diagrams: 02/02/18 04:01 02/02/18 04:01 Phys Exam - Physical Examination HEENT: PERRLA, moist MMs, sclera anicteric, TM's clear, oral pharynx no lesions , 2+ tonsils Neck: no nodes, no JVD, supple, full ROM Respiratory: no wheezing, no rales, no rhonchi, wheezing present, clear to auscultation bilateral Cardiovascular: RRR, no significant murmur, no rub, gallop, irregular Gastrointestinal: soft mild tenderness Musculoskeletal: no edema, pulses present, edema present Neurological: non-focal, normal sensation, moves all 4 limbs Dx/Plan (1) Pancreatitis Code(s): K85.90 - ACUTE PANCREATITIS WITHOUT NECROSIS OR INFECTION, UNSP Status: Acute (2) SIRS (systemic inflammatory response syndrome) Code(s): R65.10 - SIRS OF NON-INFECTIOUS ORIGIN W/O ACUTE ORGAN DYSFUNCTION Status: Acute (3) Obesity Code(s): E66.9 - OBESITY, UNSPECIFIED Status: Acute (4) Elevated LFTs Code(s): R94.5 - ABNORMAL RESULTS OF LIVER FUNCTION STUDIES Status: Acute - Plan pt states his pain has improved today. will advance diet -: Asked pt to let the nurse know if he has abdominal pain * . Review of Systems - Medications/Allergies Allergies/Adverse Reactions: Allergies Allergy/AdvReac Type Severity Reaction Status Date / Time No Known Allergies Allergy Verified 01/27/18 16:59 Medications: Current Medications Acetaminophen (Tylenol) 650 mg PO Q4H PRN PRN Reason: Headache/Fever or Pain Last Admin: 07/26/18 19:58 Dose: 650 mg Al Hydroxide/Mg Hydroxide (Maalox) 30 ml PO Q6H PRN PRN Reason: Heartburn or Indigestion Calcium Carbonate (Tums) 1,000 mg PO Q4H PRN PRN Reason: Heartburn or Indigestion Last Admin: 01/30/18 18:00 Dose: 1,000 mg Famotidine (Pepcid) 20 mg PO BID [facility] Last Admin: 02/02/18 08:37 Dose: 20 mg Folic Acid (Folvite) 1 mg PO DAILY [facility] Last Admin: 02/02/18 08:37 Dose: 1 mg Hydralazine HCl (Apresoline) 10 mg SLOW IVP Q4H PRN PRN Reason: SBP Greater Than 180 Potassium Chloride/Dextrose/Sod Cl (D5 0.9% Ns W/ 20 Meq Kcl) 1,000 mls @ 200 mls/hr IV .Q5H [facility] Last Admin: 02/02/18 08:40 Dose: 1,000 mls Lorazepam (Ativan) 1 mg PO Q4H PRN PRN Reason: ASE >=9 Morphine Sulfate (Morphine) 2 mg SLOW IVP Q4H PRN PRN Reason: Moderate Pain (4-6) Last Admin: 02/01/18 19:58 Dose: 2 mg Multivitamins (Theragran) 1 tab PO DAILY [facility] Last Admin: 02/02/18 08:37 Dose: 1 tab Ondansetron HCl (Zofran Odt) 4 mg PO Q6H PRN PRN Reason: Nausea/Vomiting Ondansetron HCl (Zofran) 4 mg IVP Q6H PRN PRN Reason: Nausea/Vomiting Thiamine HCl (Thiamine) 100 mg PO DAILY [facility] Last Admin: 02/02/18 08:37 Dose: 100 mg
--- NOTE | 2018-02-02 21:14 | PRG ---
DATE OF SERVICE: 02/02/2018 SUBJECTIVE: Mr. Schmidt was able to eat today regular food without pain. OBJECTIVE: VITAL SIGNS: Temperature is 98, blood pressure 103/94. ABDOMEN: Soft, nontender. Basic metabolic profile normal. LABORATORY DATA: ALT is 56. LFTs otherwise normal. Lipase is down to 940 from 1393. ASSESSMENT: Pancreatitis, alcohol related. Pain has resolved. Markers for autoimmune, pancreatitis is negative. RECOMMENDATIONS: I think he can go home either today or tomorrow depending what the hospitals wants to do with a low-fat diet. I have recommended him he not drink alcohol, beer or wine -indefinitely would be best , but definitely none for 6 months and then if he does drink alcohol, we can ask him to be very moderate in his usage. He understands these issues. I would be happy to see him if further problems or issues, I expect to make a full recovery back to his baseline at this time if he avoids alcohol to avoid any other serious sequelae. MARTÍN
[2018-02-03 05:09] LABS: #Eosinphils 0.7 thou/uL (0.0-0.7); #Lymphocytes 2.6 thou/uL (1.20-3.40); #Neutrophils 4.8 thou/uL (1.40-6.50); %Basophils 0.5 % (0.0-1.0); %Eosinophils 7.6 % (0.0-10.0); %Monocytes 10.7 % (0.0-10.0); %Neutrophils 53.1 % (42.0-75.0); Hemoglobin 14.8 g/dL (14.0-18.0); Mean Corpuscular HGB CONC 34.7 g/dL (32.0-36.0); Mean Corpuscular Volume 92.4 fL (78.0-98.0); Mean Platelet Volume 6.6 fL (7.4-10.4); Platelet Count 312 thou/uL (130-400); RBC Distribution Width 10.8 % (11.5-14.5); Red Blood Cell (RBC) Count 4.62 mill/uL (4.70-6.10); White Blood Cell (WBC) Count 9.1 thou/uL (4.8-10.8)
[2018-02-03 05:18] LABS: ALT (SGPT) 65 U/L (8-55); AST (SGOT) 39 U/L (5-34); Alkaline Phosphatase 83 U/L (40-150); Anion Gap 13 mmol/L (10-20); BUN (Urea Nitrogen) 7 mg/dL (8.9-20.6); Bilirubin, Total 0.5 mg/dL (0.2-1.2); Calc. Creatinine Clearance 138 mL/min (70-130); Calcium 9.7 mg/dL (7.8-10.44); Carbon Dioxide 25 mmol/L (22-29); Chloride 105 mmol/L (98-107); Estimated GFR-MDRD 88; Globulin 3.5 g/dL (2.4-3.5); Glucose 128 mg/dL (70-105); Potassium 3.8 mmol/L (3.5-5.1); Protein, Total 7.5 g/dL (6.0-8.3); Sodium 139 mmol/L (136-145)
[2018-02-03 05:31] LABS: Lipase 1269 U/L (8-78)
[2018-02-03] MEDS: Folic Acid 1 MG TAB PO SCH (08:40)
[2018-02-03] MEDS: Multivit, Therapeutic 1 TAB PO SCH (08:40)
[2018-02-03] MEDS: Famotidine 20 MG TAB PO SCH (08:40)
[2018-02-03 08:46] VITALS: BP 132/88; TEMP 98.1
--- NOTE | 2018-02-04 15:37 | DIS ---
DATE OF ADMISSION: 01/27/2018 DATE OF DISCHARGE: 02/03/2018 DISCHARGE DIAGNOSES: As of the followin. Acute pancreatitis most likely secondary to alcohol use. 2. Systemic inflammatory response syndrome. 3. Obesity. 4. Elevated LFTs and alcohol abuse. HOSPITAL COURSE: Patient is a 27-year-old male who initially presented to the hospital with complain ts of abdominal pain. He was found to have an elevated lipase in the thousands. He also had an abdo men and pelvic CAT scan, which indicated interstitial edematous pancreatitis without evidence of necr osis. He was also seen by Gastroenterology. Initially, the patient was treated conservatively with IV fluids and pain medications and his pain subsided. The patient's diet was then advanced. He tole rated the diet without any abdominal pain. The patient was discharged home and will follow up with [facility]. He was asked to avoid drinking alcohol. DISCHARGE MEDICATIONS: As of the followin. Folic acid 1 mg daily. 2. Pepcid 20 mg b.i.d. 3. Thiamine 100 mg p.o. daily. FOLLOWUP: Again, he will follow up with his primary as needed. PHYSICAL EXAMINATION: VITAL SIGNS: Temperature 98.1, 61, 132/88, 20, 100% on room air. GENERAL: He is awake, alert, oriented x3, does not appear in any distress. CARDIOVASCULAR: S1, S2 present. No murmurs, rubs or gallops. ABDOMEN: Soft, nontender. Bowel sounds are present x2. EXTREMITIES: No edema. Pedal pulse present x2. LUNGS: Clear to auscultation.
== END 2018-02-03 10:32 | disposition home or self-care (01) | DRG 439 ==
LOC: ERS 11:28 → T4-B 14:10
PROVIDERS: ADMIT Internal Medicine; ATTEND Internal Medicine
DX: K85.20 Alcohol induced acute pancreatitis without necrosis or infection (principal); R65.10 Systemic inflammatory response syndrome (SIRS) of non-infectious origin without acute organ dysfunction; E87.1 Hypo-osmolality and hyponatremia; E66.9 Obesity, unspecified; R94.5 Abnormal results of liver function studies; E87.6 Hypokalemia; F10.20 Alcohol dependence, uncomplicated; K75.81 Nonalcoholic steatohepatitis (NASH); E86.0 Dehydration; K70.0 Alcoholic fatty liver; Z68.30 Body mass index [BMI] 30.0-30.9, adult
CPT/HCPCS: 36415; 74177; 76705; 80048; 80053; 81003; 81015; 82150; 82787; 83605; 83690; 83735; 84100; 84478; 85025; 85610; 86038; 86140; 86225; 96361; 96365; 96375; 96376; C9113; J2270; J2405; J3411; J3480; J7042; J7050; S0028

== ENCOUNTER 2019-02-17 18:11 | Inpatient (IN) | payer OTHER, SELFPAY ==
--- NOTE | 2019-02-17 18:40 | RAD ---
XR Chest 1 View Portable History: Epigastric pain Comparison: None. Findings: Lungs are clear. No pneumothorax or effusion. Cardiac silhouette and mediastinal contours a re within normal limits. Impression: No acute intrathoracic abnormality.
[2019-02-17 18:45] LABS: #Basophils 0.1 thou/uL (0.0-0.2); #Eosinphils 0.1 thou/uL (0.0-0.7); #Lymphocytes 1.7 thou/uL (1.20-3.40); #Monocytes 0.9 thou/uL (0.11-0.59); %Basophils 0.5 % (0.0-1.0); %Lymphocytes 13.1 % (21.0-51.0); %Monocytes 6.8 % (0.0-10.0); %Neutrophils 78.6 % (42.0-75.0); Hemoglobin 16.1 g/dL (14.0-18.0); Mean Corpuscular HGB CONC 35.4 g/dL (32.0-36.0); Mean Corpuscular Hemoglobin 32.3 pg (27.0-31.0); Mean Corpuscular Volume 91.3 fL (78.0-98.0); Mean Platelet Volume 6.6 fL (7.4-10.4); Platelet Count 255 thou/uL (130-400); RBC Distribution Width 11.4 % (11.5-14.5); Red Blood Cell (RBC) Count 4.99 mill/uL (4.70-6.10); White Blood Cell (WBC) Count 12.7 thou/uL (4.8-10.8)
[2019-02-17 18:59] LABS: Bilirubin Negative (Negative); Blood, Urine Negative (Negative); Clarity Clear (Clear); Glucose, Urine (Dipstick) Normal (Negative); Leukocyte Negative Leu/uL (Negative); Nitrite Negative (Negative); Protein, Urine (Dipstick) 30 mg/dL (Neg-Trace); RBC/HPF 0-3 HPF (0-3); Squamous Epithelial 0-3 HPF (0-3); Urobilinogen Normal mg/dL (Less than 2); WBC/HPF 0-3 HPF (0-3)
[2019-02-17] MEDS ORDERED: Famotidine/PF 20 mg/2ml Vial ONE (19:02)
[2019-02-17] MEDS ORDERED: Ketorolac Tromethamine 30 MG/ML VIAL ONE (19:02)
[2019-02-17 19:07] LABS: ALT (SGPT) 58 U/L (8-55); AST (SGOT) 39 U/L (5-34); Albumin 4.5 g/dL (3.5-5.0); Alkaline Phosphatase 87 U/L (40-150); Anion Gap 14 mmol/L (10-20); BUN (Urea Nitrogen) 13 mg/dL (8.9-20.6); Bilirubin, Total 0.3 mg/dL (0.2-1.2); Calc. Creatinine Clearance 0 mL/min (70-130); Calcium 9.2 mg/dL (7.8-10.44); Carbon Dioxide 26 mmol/L (22-29); Chloride 101 mmol/L (98-107); Estimated GFR-MDRD Greater than 90; Globulin 3.3 g/dL (2.4-3.5); Glucose 133 mg/dL (70-105); Lipase 426 U/L (8-78); Potassium 3.7 mmol/L (3.5-5.1); Protein, Total 7.8 g/dL (6.0-8.3); Sodium 137 mmol/L (136-145)
[2019-02-17 19:09] LABS: Bacteria/HPF None Seen HPF (None Seen); Sperm/HPF 1+ HPF (None Seen)
--- NOTE | 2019-02-17 19:56 | ULT ---
US Gallbladder RUQ History: Epigastric pain Comparison: Ultrasound 2018 Findings: Real-time grayscale and color evaluation of the abdomen was performed. Pancreas is not well seen. Diffuse increased hepatic echotexture. Gallbladder is normal. Common bile duct is normal. Right kidney is normal. Impression: Diffuse increased hepatic echotexture suggesting steatosis or hepatocellular disease. No acute gallbladder pathology.
[2019-02-17] MEDS ORDERED: Morphine 4 MG/ML VIAL ONE (20:51)
[2019-02-17] MEDS ORDERED: Acetaminophen 325 MG TAB PO PRN (22:16)
[2019-02-17] MEDS ORDERED: Ondansetron ODT 4 MG TAB SL PRN (22:16)
[2019-02-17] MEDS ORDERED: Morphine 4 MG/ML VIAL SLOW IVP PRN (22:16)
[2019-02-17] MEDS ORDERED: Ondansetron PF 4 MG/2 ML Vial IVP PRN (22:16)
[2019-02-17] MEDS ORDERED: Sodium Chloride 0.9% 1,000 ML IV SCH (22:16)
[2019-02-17] MEDS ORDERED: Dextrose 50% Abboject 50 ML SYRINGE SLOW IVP PRN (22:36)
[2019-02-17] MEDS ORDERED: HumaLOG 300 UNITS/3 ML VIAL SC PRN (22:36)
[2019-02-17] MEDS ORDERED: Dextrose 5% in Water 1,000 ML IV PRN (22:36)
[2019-02-17 23:01] LABS: Lactic Acid 2.9 mmol/L (0.5-2.2)
[2019-02-17] MEDS: Sodium Chloride 0.9% 1,000 ML IV SCH (23:19)
--- NOTE | 2019-02-17 23:27 | HP ---
CHIEF COMPLAINT: Abdominal pain. HISTORY OF PRESENT ILLNESS: This patient is a 28-year-old male with a history of a prior admission about 1 year ago for pancreatitis related to likely alcohol abuse. The patient states he continues to drink about a couple every day, on the weekends he will drink 12 to 18. Today, the patient reported to the emergency department again complaining of epigastric abdominal pain, currently a 5/10. States it is very similar in nature as to his previous pain year ago, reported it was 8/10 in the emergency department. He has had some loss of appetite. No vomiting. Had normal bowel movement as of this morning. REVIEW OF SYSTEMS: He denies any specific fevers or chills. All other systems reviewed. All pertinent positives and negatives noted in the history of present illness. PAST MEDICAL HISTORY: The patient has been diagnosed with diabetes. Since his last admission, he is on p.o. medications that was about 5 months ago that was diagnosed. PAST SURGICAL HISTORY: None. FAMILY HISTORY: Negative for heart disease and GI disease. SOCIAL HISTORY: As above. The patient drinks a couple beers per day, minimum he drinks 12 to 18 on weekends. Denies drugs. He is not . He is full code. His cousin would be his surrogate decision maker and his information has been obtained. ALLERGIES: NONE. CURRENT MEDICATIONS: Metformin 1 p.o. daily, dose is not known. PHYSICAL EXAMINATION: VITAL SIGNS: BP 147/98, pulse 48, respirations 16, temperature 98.4, O2 saturation 98% on room air. GENERAL APPEARANCE: Age-appropriate male, Romansh-speaking only. No distress. Awake, alert, oriented, pleasant, and cooperative. HEENT: DORA. No OP lesions. NECK: Supple and symmetric. No lymphadenopathy, JVD, or carotid bruits. HEART: Regular rate and rhythm. No murmurs, gallops, or rubs. LUNGS: Clear to auscultation bilaterally with good chest wall expansion and exchange. ABDOMEN: Soft and nondistended. Positive bowel sounds. Tenderness in the epigastrium with no guarding. No rebound. EXTREMITIES: No cyanosis, clubbing, or edema. LABORATORY DATA: White count 12.7, hemoglobin 16.1, platelets 255. Sodium 137, potassium 3.7, chloride 101, CO2 of 26, BUN 13, creatinine 0.84, glucose 133, lactic acid 2.9, calcium 9.2. AST 39, ALT 58, alkaline phosphatase 87, albumin is 4.5. Urinalysis negative, 1+ sperm cells, otherwise negative. Chest x-ray, no acute intrathoracic abnormalities. Abdominal ultrasound, diffuse increased hepatic echotexture suggesting steatosis or hepatocellular disease. No acute gallbladder pathology. Lipase was 426. IMPRESSION AND PLAN: 1. Recurrent pancreatitis in a young man who continues to abuse alcohol in spite of his prior diagnosis of pancreatitis. He will be admitted, started on p.r.n. pain medications and IV fluids. 2. Lactic acidosis, likely related to the pancreatitis. We will give some fluids and recheck. I do not believe he is septic in any way. 3. Alcohol abuse. The patient stated understanding that the alcohol abuse is in fact what is causing his problems, and that if he continues, he will continue to have worsening pancreatitis and become likely an insulin dependent. 4. Diabetes mellitus. We will hold the metformin since he is n.p.o., given sliding scale insulin coverage only. Job ID: [id number]
[2019-02-18] MEDS: Morphine 4 MG/ML VIAL SLOW IVP PRN ×3 (01:23→09:26)
[2019-02-18] MEDS ORDERED: Morphine 2 MG/ML SYRINGE SLOW IVP SCH (07:15)
[2019-02-18] MEDS: Famotidine/PF 20 mg/2ml Vial SLOW IVP SCH ×2 (08:01→21:52)
[2019-02-18] MEDS: Enoxaparin Sodium 40 MG/0.4 ML SYRINGE SC SCH (08:01)
[2019-02-18] MEDS: Sodium Chloride 0.9% 1,000 ML IV SCH ×2 (08:01→17:22)
[2019-02-18] MEDS ORDERED: Fentanyl 100 MCG/2 ML VIAL SLOW IVP PRN ×2 (09:53→11:33)
[2019-02-18] MEDS ORDERED: Ketorolac Tromethamine 30 MG/ML VIAL IVP SCH (10:00)
[2019-02-18] MEDS: Ondansetron PF 4 MG/2 ML Vial IVP PRN ×2 (10:05→16:03)
[2019-02-18] MEDS: hydrALAZINE 20 MG/ML VIAL SLOW IVP PRN ×2 (11:58→17:53)
[2019-02-18] MEDS ORDERED: hydrALAZINE 20 MG/ML VIAL SLOW IVP SCH (13:00)
[2019-02-18] MEDS ORDERED: Fentanyl 100 MCG/2 ML VIAL SLOW IVP SCH (14:00)
[2019-02-18] MEDS: Ketorolac Tromethamine 30 MG/ML VIAL IVP SCH ×2 (16:03→21:52)
[2019-02-18] MEDS ORDERED: Naloxone HCl 0.4 mg/ml Vial IV PRN (16:46)
[2019-02-18] MEDS ORDERED: diphenhydrAMINE 50 MG/ML VIAL IVP PRN (16:46)
[2019-02-18] MEDS ORDERED: diphenhydrAMINE 50 MG/ML VIAL IM PRN (16:46)
[2019-02-18] MEDS ORDERED: Ondansetron PF 4 MG/2 ML Vial IVP PRN (16:46)
[2019-02-18] MEDS ORDERED: Promethazine HCl 25 MG/ML VIAL IM PRN (16:46)
[2019-02-18] MEDS ORDERED: diphenhydrAMINE 25 MG CAP PO PRN (16:46)
[2019-02-18] MEDS ORDERED: Zolpidem Tartrate 5 MG TAB PO PRN (16:46)
[2019-02-18] MEDS ORDERED: Communication Order-Pharmacy FS PRN (17:00)
[2019-02-18] MEDS: fentaNYL Citrate/PF 2,000 MCG in Sodium Chloride 0.9% 60 ML IV PRN (17:11)
--- NOTE | 2019-02-18 17:55 | PDOC.HOSPP ---
- Subjective Encounter Date: 02/18/19 Encounter Time: 08:00 Subjective: Pt seen for followup re: acute pancreatitis. c/o abdo pain, nausea. No fevers. - Objective Vital Signs & Weight: Vital Signs (12 hours) Temp Pulse Resp BP BP Pulse Ox 02/18/19 15:13 158/95 H 02/18/19 14:53 98.4 F 85 18 156/101 H 98 02/18/19 13:37 80 168/89 H 02/18/19 12:50 69 176/90 H 02/18/19 11:58 60 190/62 H 02/18/19 11:42 60 190/92 H 02/18/19 11:06 98.4 F 50 L 16 189/93 H 99 02/18/19 07:06 98.0 F 60 18 155/93 H 98 Weight Weight 180 lb I&O: 02/17/19 02/18/19 02/19/19 06:59 06:59 06:59 Intake Total 2000 Output Total 950 Balance 1050 Result Diagrams: 02/17/19 18:30 02/17/19 18:30 Additional Labs: Accuchecks 02/18/19 02/18/19 02/18/19 15:00 11:11 05:16 POC Glucose 169 H 144 H 133 H 02/17/19 23:47 POC Glucose 102 ROS - Review of Systems Cardiovascular: denies: chest pain, palpitations, orthopnea, paroxysmal noc. dyspnea, edema, light headedness Gastrointestinal: reports: nausea, abdominal pain. denies: vomitting, diarrhea , constipation, melena, hematochezia - Medication Medications: Active Medications Generic Name Dose Route Start Last Admin Trade Name Freq PRN Reason Stop Dose Admin Enoxaparin Sodium 40 mg 02/18/19 09:00 02/18/19 08:01 Lovenox SC 40 mg 0900 [facility]IO Administration Famotidine 20 mg 02/18/19 09:00 02/18/19 08:01 Pepcid SLOW IVP 20 mg Q12HR [facility] Administration Hydralazine HCl 10 mg 02/18/19 11:42 02/18/19 11:58 Apresoline SLOW IVP 10 mg Q6H PRN Administration SBP Greater Than 170 Sodium Chloride 1,000 mls @ 100 mls/hr 02/17/19 22:45 02/18/19 17:22 Normal Saline 0.9% IV 1,000 mls .Q10H [facility] Administration Fentanyl Citrate 2,000 mcg/ 100 mls @ 0 mls/hr 02/18/19 16:46 02/18/19 17:11 Sodium Chloride IV 100 mls INF PRN Administration Pain As Directed Ketorolac Tromethamine 15 mg 02/18/19 16:00 02/18/19 16:03 Toradol IVP 02/23/19 16:01 15 mg 0400,1000,1600,2200 [facility] Administration Ondansetron HCl 4 mg 02/18/19 09:54 02/18/19 16:03 Zofran IVP 4 mg Q6H PRN Administration Nausea/Vomiting - Exam NAD Eye: anicteric sclera ENT: normocephalic atraumatic, moist mucosa Neck: supple, no JVD Heart: RRR, no rubs Respiratory: CTAB, no rales Gastrointestinal: soft, normal bowel sounds Gastrointestinal - other findings: epigastric tenderness+ Skin: normal turgor Psychiatric: normal affect, normal behavior Hosp A/P (1) Acute pancreatitis Code(s): K85.90 - ACUTE PANCREATITIS WITHOUT NECROSIS OR INFECTION, UNSP Status: Acute (2) Alcohol abuse Code(s): F10.10 - ALCOHOL ABUSE, UNCOMPLICATED Status: Chronic - Plan out of bed/ambulate bowel rest. Follow lipase. pain medications. Zofran for nausea. Start ASE protocol.
[2019-02-18] MEDS ORDERED: Diazepam 5 MG TAB PO PRN (18:32)
[2019-02-18] MEDS ORDERED: Thiamine HCl 200 MG/2 ML VIAL IM SCH (18:45)
[2019-02-18] MEDS ORDERED: Diazepam 5 MG TAB PO SCH (18:45)
[2019-02-18 21:06] LABS: ALT (SGPT) 39 U/L (8-55); AST (SGOT) 43 U/L (5-34); Albumin 3.8 g/dL (3.5-5.0); Alkaline Phosphatase 98 U/L (40-150); Anion Gap 17 mmol/L (10-20); BUN (Urea Nitrogen) 14 mg/dL (8.9-20.6); Bilirubin, Direct 0.3 mg/dL (0.1-0.3); Bilirubin, Total 0.7 mg/dL (0.2-1.2); Calc. Creatinine Clearance 137 mL/min (70-130); Calcium 8.6 mg/dL (7.8-10.44); Carbon Dioxide 16 mmol/L (22-29); Chloride 108 mmol/L (98-107); Estimated GFR-MDRD Greater than 90; Globulin 3.2 g/dL (2.4-3.5); Glucose 227 mg/dL (70-105); Potassium 4.5 mmol/L (3.5-5.1); Sodium 136 mmol/L (136-145)
[2019-02-18 21:41] LABS: Syphilis Antibody Nonreactive (Nonreactive); Syphilis Antibody Index 0.04 S/CO (<1.00 Non-Reactive)
--- NOTE | 2019-02-18 22:13 | PDOC.EVN ---
Event Note - Event Note Event Note: Nursing called to say patient tachycardic into 120s-130s; febrile to 99.9. I discussed patient with Dr. Maguire; will transfer to telemetry, increase IV fluids , obtain blood cultures and start meropenem 1 g Q8 hours. On my exam, patient in NAD. He is alert and oriented.
[2019-02-18 23:27] LABS: Band 14 % (5-11); Hemoglobin 18.6 g/dL (14.0-18.0); Lymphocytes 3 % (21-51); MDiff Complete? YES; Mean Corpuscular HGB CONC 33.8 g/dL (32.0-36.0); Mean Corpuscular Volume 91.7 fL (78.0-98.0); Monocytes 5 % (0-10); Neutrophil 78 % (42-75); Platelet Count 249 thou/uL (130-400); Platelet Morphology Comment Appears Adequate; RBC Distribution Width 11.7 % (11.5-14.5); RBC Morphology Normal; Red Blood Cell (RBC) Count 6.01 mill/uL (4.70-6.10); White Blood Cell (WBC) Count 21.1 thou/uL (4.8-10.8)
[2019-02-19] MEDS ORDERED: cloNIDine 0.1 MG TAB PO PRN (00:21)
[2019-02-19] MEDS ORDERED: cloNIDine 0.1 MG TAB PO SCH (00:30)
[2019-02-19] MEDS: MEROPENEM 1 GM/50 ML 1 GM in Premix Bag 1 BAG IVPB SCH ×3 (00:41→16:29)
[2019-02-19] MEDS: Dextrose 5 %-0.45 % NaCl 1,000 ML IV SCH ×4 (01:01→22:05)
[2019-02-19] MEDS: Lactated Ringer's 1,000 ML IV SCH ×2 (02:14→03:19)
[2019-02-19 03:03] LABS: Amphetamine Not Detected (NotDetected); Barbiturates Screen Not Detected (NotDetected); Benzodiazepine Screen Not Detected (NotDetected); Cocaine Metabolite Screen Detected (NotDetected); Medtox Control Line Valid? VALID (VALID); Medtox Reader # READER 4; Methadone Not Detected (NotDetected); Methamphetamine Not Detected (NotDetected); Opiate Screen Detected (NotDetected); Oxycodone Screen Not Detected (NotDetected); Phencyclidine (PCP) Not Detected (NotDetected); THC/Cannabinoid Screen Not Detected (NotDetected); Tricyclic Screen Not Detected (NotDetected)
--- NOTE | 2019-02-19 03:11 | CON ---
DATE OF CONSULTATION: 02/19/2019 CHIEF COMPLAINT: Abdominal pain. HISTORY OF PRESENT ILLNESS: Mr. Schmidt is a 28-year-old man who developed sharp epigastric abdominal pain on Monday afternoon along with nausea. He has abdominal bloating and distention with it. He has had no diarrhea, constipation, or blood in the stool. He drinks 12-18 beers per day on the weekends and has some beer on a daily basis. Mr. Schmidt received IV fluids in the ER, but has had persistent pain such that he required a DIRECTOR SALES AND MARKETING pump. He states his pain is now well controlled and he only has a minimal amount of pain with the pump. PAST MEDICAL HISTORY: Alcoholic pancreatitis, diabetes. PAST SURGICAL HISTORY: Negative. FAMILY HISTORY: Negative for GI malignancy. SOCIAL HISTORY: He drinks beer daily and up to 12 to 18 per day on the weekends. No tobacco or drugs. ALLERGIES: NO KNOWN DRUG ALLERGIES. MEDICATIONS: As an outpatient, metformin. REVIEW OF SYSTEMS: Negative x10 systems reviewed except as stated in history of present illness. OBJECTIVE: VITAL SIGNS: Temperature 98.8, blood pressure 131/96, pulse 137 to 144. GENERAL: He is in no acute distress. He is alert and oriented x3. HEENT: Eyes have no scleral icterus. Oropharynx is clear without lesions. No cervical or supraclavicular lymphadenopathy. LUNGS: Clear to auscultation bilaterally. HEART: Tachycardic, S1 and S2. ABDOMEN: Soft, tender in the epigastric region with slight voluntary guarding. Bowel sounds are present. EXTREMITIES: No lower extremity edema. NEUROLOGICAL: He has no tremors or asterixis on neurological exam. LABORATORY DATA: White blood cell count is 21.1 this evening up from 12.7 yesterday. Hemoglobin is 18.6, up from 16.1 yesterday. Platelets 249, creatinine 0.92, lipase 872. IMPRESSION: Acute alcoholic pancreatitis. This is recurrent. He was admitted with the same a year ago. He has continued to drink alcohol heavily. My concern is that he has become more hemoconcentrated despite a couple of liters of saline in the ER plus maintenance fluid since then. His hemoglobin is increased from 16.1 to 18.6. He is tachycardic in the 140s. He is currently on meropenem. He is on enoxaparin and famotidine. He did receive thiamine and is on protocol for potential alcohol withdrawal. The tachycardia could be related to alcohol withdrawal; but given is severe hemoconcentration, we will start increasing with aggressive IV fluids. RECOMMENDATIONS: 1. Would give a couple of liters of lactated Ringer's now. Bolus. 2. Continue pain control and n.p.o. status for now. 3. We will continue to follow trend of his labs. 4. A complete alcohol abstinence was advised. Job ID: [id number]
[2019-02-19] MEDS: Ketorolac Tromethamine 30 MG/ML VIAL IVP SCH ×4 (03:53→21:00)
[2019-02-19] MEDS ORDERED: Diazepam 5 MG TAB PO PRN (04:00)
[2019-02-19 05:00] LABS: ALT (SGPT) 26 U/L (8-55); AST (SGOT) 50 U/L (5-34); Albumin 3.1 g/dL (3.5-5.0); Alkaline Phosphatase 74 U/L (40-150); Anion Gap 15 mmol/L (10-20); BUN (Urea Nitrogen) 19 mg/dL (8.9-20.6); Bilirubin, Total 0.7 mg/dL (0.2-1.2); Calc. Creatinine Clearance 135 mL/min (70-130); Calcium 8.2 mg/dL (7.8-10.44); Carbon Dioxide 18 mmol/L (22-29); Chloride 108 mmol/L (98-107); Estimated GFR-MDRD Greater than 90; Globulin 2.8 g/dL (2.4-3.5); Glucose 288 mg/dL (70-105); Magnesium 1.9 mg/dL (1.6-2.6); Phosphorus 2.7 mg/dL (2.3-4.7); Potassium 4.9 mmol/L (3.5-5.1); Protein, Total 5.9 g/dL (6.0-8.3); Sodium 136 mmol/L (136-145)
[2019-02-19 05:13] LABS: Band 20 % (5-11); Lymphocytes 2 % (21-51); MDiff Complete? YES; Mean Corpuscular HGB CONC 33.7 g/dL (32.0-36.0); Mean Corpuscular Hemoglobin 31.1 pg (27.0-31.0); Mean Corpuscular Volume 92.3 fL (78.0-98.0); Mean Platelet Volume 7.4 fL (7.4-10.4); Monocytes 2 % (0-10); Neutrophil 76 % (42-75); Platelet Count 206 thou/uL (130-400); Platelet Morphology Comment Appears Adequate; RBC Distribution Width 11.7 % (11.5-14.5); RBC Morphology Normal; Red Blood Cell (RBC) Count 5.48 mill/uL (4.70-6.10); White Blood Cell (WBC) Count 15.9 thou/uL (4.8-10.8)
[2019-02-19 05:14] LABS: Lipase 1741 U/L (8-78)
[2019-02-19] MEDS ORDERED: Diazepam 5 MG TAB PO SCH (06:15)
[2019-02-19] MEDS ORDERED: Insulin Regular 300 UNITS/3 ML VIAL ONE (06:46)
[2019-02-19] MEDS: HumaLOG 300 UNITS/3 ML VIAL SC PRN ×4 (07:38→20:53)
[2019-02-19] MEDS: Thiamine 100 MG TAB PO SCH (09:10)
[2019-02-19] MEDS: Enoxaparin Sodium 40 MG/0.4 ML SYRINGE SC SCH (09:10)
[2019-02-19] MEDS: Magnesium Oxide 400 MG TAB PO SCH (09:10)
[2019-02-19] MEDS: Famotidine/PF 20 mg/2ml Vial SLOW IVP SCH ×2 (09:10→20:44)
[2019-02-19] MEDS: Folic Acid 1 MG TAB PO SCH (09:10)
[2019-02-19] MEDS: Multivitamin W/ Minerals 1 TAB PO SCH (09:10)
--- NOTE | 2019-02-19 18:06 | PDOC.HOSPP ---
- Subjective Encounter Date: 02/19/19 Encounter Time: 09:40 Subjective: Pt seen for followup re: acute pancreatitis. Says pain is better. Nausea+. - Objective Vital Signs & Weight: Vital Signs (12 hours) Temp BP Pulse Ox 02/19/19 16:00 132/91 H 02/19/19 15:38 98.2 F 02/19/19 12:00 131/100 H 02/19/19 10:51 98.6 F 02/19/19 08:08 100 02/19/19 08:00 133/78 02/19/19 07:10 98.4 F Weight Weight 179 lb 3.773 oz Most Recent Monitor Data Heart Rate from ECG 132 NIBP 132/91 NIBP BP-Mean 104 Respiration from ECG 35 SpO2 90 I&O: 02/18/19 02/19/19 02/20/19 06:59 06:59 06:59 Intake Total 4140 Output Total 1350 Balance 2790 Result Diagrams: 02/19/19 04:00 02/19/19 04:00 Additional Labs: Accuchecks 02/19/19 02/19/19 02/18/19 16:10 06:45 21:05 POC Glucose 294 H 287 H 202 H Labs and MARs reviewed by me EKG Reviewed by me: Yes (Tele: sinus tachycardia) ROS - Review of Systems Gastrointestinal: reports: nausea, abdominal pain. denies: vomitting, diarrhea , constipation, melena, hematochezia Genitourinary: denies: dysuria, frequency, incontinence, hematuria, retention - Medication Medications: Active Medications Generic Name Dose Route Start Last Admin Trade Name Freq PRN Reason Stop Dose Admin Enoxaparin Sodium 40 mg 02/18/19 09:00 02/19/19 09:10 Lovenox SC 40 mg 0900 FLAVIO Administration Famotidine 20 mg 02/18/19 09:00 02/19/19 09:10 Pepcid SLOW IVP 20 mg Q12HR FLAVIO Administration Folic Acid 1 mg 02/19/19 09:00 02/19/19 09:10 Folvite PO 1 mg DAILY FLAVIO Administration Hydralazine HCl 10 mg 02/18/19 11:42 02/18/19 17:53 Apresoline SLOW IVP 10 mg Q6H PRN Administration SBP Greater Than 170 Fentanyl Citrate 2,000 mcg/ 100 mls @ 0 mls/hr 02/18/19 16:46 02/18/19 17:11 Sodium Chloride IV 100 mls INF PRN Administration Pain As Directed Dextrose/Sodium Chloride 1,000 mls @ 125 mls/hr 02/18/19 22:15 02/19/19 10:48 D5 1/2 Ns IV 1,000 mls .Q8H FLAVIO Administration Meropenem 1 gm/ Device 50 mls @ 100 mls/hr 02/18/19 23:59 02/19/19 16:29 IVPB 50 mls 0800,1600,2359 FLAVIO Administration Insulin Human Lispro 0 units 02/18/19 22:03 02/19/19 16:28 Humalog SC 6 unit .MODERATE SLIDING SC PRN Administration Moderate Correctional Scale Iron/Minerals/Multivitamins 1 tab 02/19/19 09:00 02/19/19 09:10 Theragran M PO 1 tab DAILY FLAVIO Administration Ketorolac Tromethamine 15 mg 02/18/19 16:00 02/19/19 16:28 Toradol IVP 02/23/19 16:01 15 mg 0400,1000,1600,2200 FLAVIO Administration Magnesium Oxide 400 mg 02/19/19 09:00 02/19/19 09:10 Magnesium Oxide PO 400 mg DAILY FLAVIO Administration Ondansetron HCl 4 mg 02/18/19 09:54 02/18/19 16:03 Zofran IVP 4 mg Q6H PRN Administration Nausea/Vomiting Thiamine HCl 100 mg 02/19/19 09:00 02/19/19 09:10 Thiamine PO 100 mg DAILY FLAVIO Administration - Exam NAD Eye: anicteric sclera ENT: normocephalic atraumatic, moist mucosa Neck: supple, no thyromegaly Heart: no rubs Heart - other findings: S1, S2, reg, tachy Respiratory: CTAB Gastrointestinal: soft Gastrointestinal - other findings: Mild epigastric tenderness, no guarding or rigidity Skin: no lesions Neurological: no weakness Musculoskeletal: normal tone Psychiatric: normal affect, normal behavior Hosp A/P (1) Acute pancreatitis Code(s): K85.90 - ACUTE PANCREATITIS WITHOUT NECROSIS OR INFECTION, UNSP Status: Acute (2) Alcohol abuse Code(s): F10.10 - ALCOHOL ABUSE, UNCOMPLICATED Status: Chronic - Plan continue antibiotics, out of bed/ambulate Pt was transfered overnight to IMCU (as telemetry overflow) due to low-grade fever and tachycardia. Continue IV mewropenem. Pt is on PREFORM MACHINE OPERATOR for analgesia. bowel rest. Lipase still trending up. pain medications. Zofran for nausea. Continue ASE protocol.
--- NOTE | 2019-02-19 19:11 | PDOC.EVN ---
Event Note - Event Note Event Note: Pt seen re: hypoxia. Awake and alert, answering questions. SaO2 dropped to high 80s following shower. Improved with supplemental oxygen. Pupils 3-4 mm parviz. S1, S2, tachy, reg. Lungs CTA Parviz. A/P: Acute hypoxia: check chest x-ray. Anesthesia to decide re: changing MICROMATIC HONE OPERATOR.
--- NOTE | 2019-02-19 19:12 | RAD ---
XR Chest 1 View Portable HISTORY: Dyspnea COMPARISON: 02/17/2019 study. FINDINGS: Film was of suboptimal inspiration, there has been development of moderate bibasilar parenc hymal lung changes consistent with atelectasis versus infiltrate. Some blunting to the right costophrenic angle could indicate associated effusion. IMPRESSION: Moderate bibasilar lung changes suggestive of atelectasis versus infiltrate.
--- NOTE | 2019-02-19 19:13 | PRG ---
DATE OF SERVICE: 02/19/2019 SUBJECTIVE: Mr. Schmidt states that his pain is well controlled with a INDEPENDENT FILM MAKER. He still has some bloating and abdominal distention. He is asking for something to drink. OBJECTIVE: VITAL SIGNS: Temperature 98.2, pulse 155 to 146, blood pressure 117/89, oxygen saturation 92%. GENERAL: He is in no acute distress. He is not tachypneic. He is awake and alert and appears comfortable. His oxygen saturation; however, has decreased down to the low 90s on 2 L O2. LUNGS: Clear to auscultation bilaterally. HEART: Tachycardic. ABDOMEN: Soft. Minimal tenderness in the epigastric region without guarding. Bowel sounds are present, though hypoactive. EXTREMITIES: No lower extremity edema. LABORATORY DATA: White blood cell count 15.9, down from 21 yesterday. Hemoglobin is 17.0, down from 18.6 last night, still though above his initial hemoglobin of 16.1, and platelets 206. Creatinine 0.93, bilirubin 0.7, AST 50, ALT 26, alkaline phosphatase 74, albumin 3.1, lipase 1741. Urine tox screen was positive for cocaine. IMPRESSION: 1. Acute recurrent alcoholic pancreatitis. He has been drinking actively up until this hospital stay. He received a couple liters of lactated Ringer last night and his hemoglobin improved from 18.6 to 17; however, still above his baseline of 16.1 on initial presentation. He remains tachycardic. He is on antibiotics and GI prophylaxis. He is on alcohol withdrawal protocol. 2. Mild hypoxemia by oxygen saturation. RECOMMENDATIONS: 1. He is being evaluated by the hospitalist now for the decrease in his oxygen saturation this evening. 2. Continue IV fluids. I would like to see his hemoglobin continued to decrease. 3. He is requesting something by mouth. I think he could start some clear liquids once the status of his respiratory issues are established. Job ID: [id number]
[2019-02-19] MEDS ORDERED: diphenhydrAMINE 50 MG/ML VIAL IM/IV PRN (19:16)
[2019-02-19] MEDS ORDERED: diphenhydrAMINE 25 MG CAP PO PRN (19:16)
[2019-02-19] MEDS ORDERED: Zolpidem Tartrate 5 MG TAB PO PRN (19:16)
[2019-02-19] MEDS ORDERED: Naloxone HCl 0.4 mg/ml Vial IV PRN (19:16)
[2019-02-19] MEDS ORDERED: fentaNYL Citrate/PF 2,000 MCG in Sodium Chloride 0.9% 60 ML IV PRN (19:16)
[2019-02-19] MEDS ORDERED: Ondansetron PF 4 MG/2 ML Vial IVP PRN (19:16)
[2019-02-19] MEDS ORDERED: Promethazine HCl 25 MG/ML VIAL IM PRN (19:16)
[2019-02-19] MEDS ORDERED: Acetaminophen 325 MG TAB PO PRN (21:38)
--- NOTE | 2019-02-19 22:59 | EKG ---
Test Reason : STAT Blood Pressure : / mmHG Vent. Rate : 125 BPM Atrial Rate : 125 BPM P-R Int : 122 ms QRS Dur : 080 ms QT Int : 290 ms P-R-T Axes : 057 080 023 degrees QTc Int : 418 ms Sinus tachycardia Otherwise normal ECG When compared with ECG of 17-FEB-2019 18:31, (Unconfirmed) Vent. rate has increased BY 68 BPM Confirmed by Zuleima MONTANEZ ([id number]) on 02/19/2019 10:58:36 PM Referred By: Confirmed By:Zuleima MONTANEZ
[2019-02-20] MEDS: Acetaminophen 325 MG TAB PO PRN (00:01)
[2019-02-20] MEDS: MEROPENEM 1 GM/50 ML 1 GM in Premix Bag 1 BAG IVPB SCH ×4 (00:02→23:48)
[2019-02-20] MEDS: Ketorolac Tromethamine 30 MG/ML VIAL IVP SCH ×4 (03:29→21:10)
[2019-02-20] MEDS: Dextrose 5 %-0.45 % NaCl 1,000 ML IV SCH ×3 (03:33→21:23)
[2019-02-20] MEDS: fentaNYL Citrate/PF 2,000 MCG in Sodium Chloride 0.9% 60 ML IV PRN (05:29)
[2019-02-20] MEDS: HumaLOG 300 UNITS/3 ML VIAL SC PRN ×4 (05:55→21:12)
[2019-02-20 06:05] LABS: ALT (SGPT) 19 U/L (8-55); AST (SGOT) 59 U/L (5-34); Albumin 2.8 g/dL (3.5-5.0); Alkaline Phosphatase 55 U/L (40-150); Anion Gap 11 mmol/L (10-20); BUN (Urea Nitrogen) 26 mg/dL (8.9-20.6); Bilirubin, Total 0.9 mg/dL (0.2-1.2); Calc. Creatinine Clearance 111 mL/min (70-130); Calcium 7.8 mg/dL (7.8-10.44); Carbon Dioxide 24 mmol/L (22-29); Chloride 104 mmol/L (98-107); Estimated GFR-MDRD 77; Globulin 3.2 g/dL (2.4-3.5); Glucose 276 mg/dL (70-105); Potassium 4.9 mmol/L (3.5-5.1); Sodium 134 mmol/L (136-145)
[2019-02-20 06:16] LABS: Band 40 % (5-11); Eosinophils 1 % (0-10); Hemoglobin 15.6 g/dL (14.0-18.0); Lymphocytes 13 % (21-51); MDiff Complete? YES; Mean Corpuscular HGB CONC 34.2 g/dL (32.0-36.0); Mean Corpuscular Hemoglobin 31.6 pg (27.0-31.0); Mean Corpuscular Volume 92.6 fL (78.0-98.0); Mean Platelet Volume 7.6 fL (7.4-10.4); Monocytes 3 % (0-10); Neutrophil 43 % (42-75); Platelet Count 166 thou/uL (130-400); Platelet Morphology Comment Appears Adequate; RBC Distribution Width 11.7 % (11.5-14.5); Red Blood Cell (RBC) Count 4.93 mill/uL (4.70-6.10); White Blood Cell (WBC) Count 9.4 thou/uL (4.8-10.8)
[2019-02-20 06:19] LABS: Lipase 1690 U/L (8-78)
[2019-02-20] MEDS: Magnesium Oxide 400 MG TAB PO SCH (08:55)
[2019-02-20] MEDS: Enoxaparin Sodium 40 MG/0.4 ML SYRINGE SC SCH (08:55)
[2019-02-20] MEDS: Thiamine 100 MG TAB PO SCH (08:55)
[2019-02-20] MEDS: Famotidine/PF 20 mg/2ml Vial SLOW IVP SCH ×2 (08:55→20:53)
[2019-02-20] MEDS: Multivitamin W/ Minerals 1 TAB PO SCH (08:55)
[2019-02-20] MEDS: Folic Acid 1 MG TAB PO SCH (08:56)
--- NOTE | 2019-02-20 16:16 | PDOC.HOSPP ---
- Subjective Encounter Date: 02/20/19 Encounter Time: 10:20 Subjective: Pt seen for followup re: acute pancreatitis. Pain is better. Nausea+, no vomiting. No fevers or chills. - Objective Vital Signs & Weight: Vital Signs (12 hours) Temp BP Pulse Ox 02/20/19 15:55 99.2 F 02/20/19 11:17 98.7 F 02/20/19 08:00 163/91 H 96 02/20/19 07:45 98.5 F Weight Weight 185 lb Most Recent Monitor Data Heart Rate from ECG 142 NIBP 134/108 NIBP BP-Mean 116 Respiration from ECG 26 SpO2 95 I&O: 02/19/19 02/20/19 02/21/19 06:59 06:59 06:59 Intake Total 4140 2851 Output Total 1350 1450 Balance 2790 1401 Result Diagrams: 02/20/19 05:31 02/20/19 05:31 Additional Labs: Accuchecks 02/20/19 02/20/19 02/19/19 10:34 05:37 20:21 POC Glucose 234 H 258 H 280 H 02/19/19 02/19/19 16:10 10:07 POC Glucose 294 H 290 H Labs and MARs reviewed by me EKG Reviewed by me: Yes (Tele: sinus tachycardia) ROS - Review of Systems Cardiovascular: denies: chest pain, palpitations, orthopnea, paroxysmal noc. dyspnea, edema, light headedness Gastrointestinal: reports: nausea, abdominal pain. denies: vomitting, diarrhea , constipation, melena, hematochezia, other - Medication Medications: Active Medications Generic Name Dose Route Start Last Admin Trade Name Lizandro PRN Reason Stop Dose Admin Acetaminophen 650 mg 02/18/19 22:01 02/20/19 00:01 Tylenol PO 650 mg Q4H PRN Administration Headache/Fever or Mild Pain Enoxaparin Sodium 40 mg 02/18/19 09:00 02/20/19 08:55 Lovenox SC 40 mg 0900 FLAVIO Administration Famotidine 20 mg 02/18/19 09:00 02/20/19 08:55 Pepcid SLOW IVP 20 mg Q12HR FLAVIO Administration Folic Acid 1 mg 02/19/19 09:00 02/20/19 08:56 Folvite PO 1 mg DAILY FLAVIO Administration Hydralazine HCl 10 mg 02/18/19 11:42 02/18/19 17:53 Apresoline SLOW IVP 10 mg Q6H PRN Administration SBP Greater Than 170 Fentanyl Citrate 2,000 mcg/ 100 mls @ 0 mls/hr 02/18/19 16:46 02/20/19 05:29 Sodium Chloride IV 100 mls INF PRN Administration Pain As Directed Dextrose/Sodium Chloride 1,000 mls @ 125 mls/hr 02/18/19 22:15 02/20/19 11:26 D5 1/2 Ns IV 1,000 mls .Q8H FLAVIO Administration Meropenem 1 gm/ Device 50 mls @ 100 mls/hr 02/18/19 23:59 02/20/19 08:54 IVPB 50 mls 0800,1600,2359 FLAVIO Administration Insulin Human Lispro 0 units 02/18/19 22:03 02/20/19 11:26 Humalog SC 4 unit .MODERATE SLIDING SC PRN Administration Moderate Correctional Scale Iron/Minerals/Multivitamins 1 tab 02/19/19 09:00 02/20/19 08:55 Theragran M PO 1 tab DAILY FLAVIO Administration Ketorolac Tromethamine 15 mg 02/18/19 16:00 02/20/19 09:09 Toradol IVP 02/23/19 16:01 15 mg 0400,1000,1600,2200 FLAVIO Administration Magnesium Oxide 400 mg 02/19/19 09:00 02/20/19 08:55 Magnesium Oxide PO 400 mg DAILY FLAVIO Administration Ondansetron HCl 4 mg 02/18/19 09:54 02/18/19 16:03 Zofran IVP 4 mg Q6H PRN Administration Nausea/Vomiting Thiamine HCl 100 mg 02/19/19 09:00 02/20/19 08:55 Thiamine PO 100 mg DAILY FLAVIO Administration - Exam NAD Eye: anicteric sclera ENT: normocephalic atraumatic Neck: supple, no thyromegaly Heart - other findings: S1, S2, tachy, reg Respiratory: CTAB Gastrointestinal: soft, tender to palpation, diminished bowl sounds Extremities: no cyanosis Skin: normal turgor Neurological: CN's grossly intact Psychiatric: normal affect, normal behavior Hosp A/P (1) Acute pancreatitis Code(s): K85.90 - ACUTE PANCREATITIS WITHOUT NECROSIS OR INFECTION, UNSP Status: Acute (2) Alcohol abuse Code(s): F10.10 - ALCOHOL ABUSE, UNCOMPLICATED Status: Chronic - Plan Clinically improving slowly. Lipase trending down. Continue IV meropenem. Pt is on COLLAR SEWER for analgesia. Continue ASE protocol.
--- NOTE | 2019-02-20 16:36 | PRG ---
DATE OF SERVICE: 02/20/2019 SUBJECTIVE: Mr. Schmidt still has abdominal bloating and pressure. His pain has been well controlled, but he did have an increase in his rate of fentanyl drip. Overall, he is up, walking around, walking to the shower and appears very comfortable. OBJECTIVE: VITAL SIGNS: Temperature is 99.2, pulse is 142, blood pressure is 134/108. GENERAL: He is in no acute distress. Alert and oriented x3. LUNGS: Clear to auscultation bilaterally. HEART: Tachycardic. S1 and S2. ABDOMEN: Soft, still somewhat distended, but his bowel sounds are present. EXTREMITIES: No lower extremity edema. LABORATORY DATA: His white blood cell count has improved to 9.4, hemoglobin is 15.8, creatinine 1.13, lipase 1690. IMPRESSION: 1. Acute recurrent alcoholic pancreatitis. 2. He did have a decrease in his oxygen saturation yesterday afternoon, but that has since resolved and breathing comfortably, and his oxygen saturation has been in the 98% range, now on room air. RECOMMENDATIONS: 1. We can try to start a low fat diet as he is tolerating the clear liquids so far well. 2. Hopefully, he should be able to start weaning back the pain pump significantly. Job ID: [id number]
[2019-02-21] MEDS ORDERED: Lorazepam 2 MG/ML VIAL SLOW IVP SCH (01:45)
--- NOTE | 2019-02-21 01:57 | PDOC.EVN ---
Event Note - Event Note Event Note: Patient remains tachycardic, anxious, and with intermittent diaphoresis. Some of his symptoms might certainly be withdrawal as patient is a known alcoholic. Discussed with Dr. Snell who recommends IV Ativan. I have personally seen and evaluated patient and have put the order in for IV Ativan 0.5 mg one dose. Per pharmacy, this needs to be approved by anesthesia.
[2019-02-21] MEDS: Dextrose 5 %-0.45 % NaCl 1,000 ML IV SCH (04:33)
[2019-02-21] MEDS: Ketorolac Tromethamine 30 MG/ML VIAL IVP SCH ×4 (04:34→21:20)
[2019-02-21 05:14] LABS: ALT (SGPT) 18 U/L (8-55); AST (SGOT) 46 U/L (5-34); Albumin 2.8 g/dL (3.5-5.0); Alkaline Phosphatase 52 U/L (40-150); Anion Gap 11 mmol/L (10-20); BUN (Urea Nitrogen) 16 mg/dL (8.9-20.6); Bilirubin, Total 0.8 mg/dL (0.2-1.2); Calc. Creatinine Clearance 162 mL/min (70-130); Calcium 7.4 mg/dL (7.8-10.44); Carbon Dioxide 23 mmol/L (22-29); Chloride 98 mmol/L (98-107); Estimated GFR-MDRD Greater than 90; Glucose 237 mg/dL (70-105); Lipase 691 U/L (8-78); Potassium 4.1 mmol/L (3.5-5.1); Protein, Total 5.8 g/dL (6.0-8.3); Sodium 128 mmol/L (136-145)
[2019-02-21 05:30] LABS: Band 22 % (5-11); Eosinophils 1 % (0-10); Hemoglobin 13.1 g/dL (14.0-18.0); Hypochromia SLIGHT = 6-15 cells (100X) (0-5/hpf); Lymphocytes 16 % (21-51); MDiff Complete? YES; Mean Corpuscular HGB CONC 32.8 g/dL (32.0-36.0); Mean Corpuscular Hemoglobin 30.6 pg (27.0-31.0); Mean Corpuscular Volume 93.3 fL (78.0-98.0); Mean Platelet Volume 7.2 fL (7.4-10.4); Monocytes 4 % (0-10); Neutrophil 57 % (42-75); Platelet Count 176 thou/uL (130-400); Platelet Morphology Comment Appears Adequate; RBC Distribution Width 11.4 % (11.5-14.5); Red Blood Cell (RBC) Count 4.28 mill/uL (4.70-6.10); White Blood Cell (WBC) Count 9.1 thou/uL (4.8-10.8)
[2019-02-21] MEDS: fentaNYL Citrate/PF 2,000 MCG in Sodium Chloride 0.9% 60 ML IV PRN (06:13)
[2019-02-21] MEDS: HumaLOG 300 UNITS/3 ML VIAL SC PRN ×3 (06:39→16:48)
[2019-02-21] MEDS: MEROPENEM 1 GM/50 ML 1 GM in Premix Bag 1 BAG IVPB SCH ×3 (09:08→23:39)
[2019-02-21] MEDS: Enoxaparin Sodium 40 MG/0.4 ML SYRINGE SC SCH (09:08)
[2019-02-21] MEDS: Thiamine 100 MG TAB PO SCH (09:09)
[2019-02-21] MEDS: Famotidine/PF 20 mg/2ml Vial SLOW IVP SCH ×2 (09:09→21:19)
[2019-02-21] MEDS: Folic Acid 1 MG TAB PO SCH (09:09)
[2019-02-21] MEDS: Multivitamin W/ Minerals 1 TAB PO SCH (09:09)
[2019-02-21] MEDS: Magnesium Oxide 400 MG TAB PO SCH (09:09)
[2019-02-21] MEDS: Sodium Chloride 0.9% 1,000 ML IV SCH ×2 (10:25→21:19)
--- NOTE | 2019-02-21 12:09 | PRG ---
DATE OF SERVICE: 02/21/2019 SUBJECTIVE: Mr. Schmidt is tolerating clear liquids. He has no significant pain, but still some bloating in his abdomen. OBJECTIVE: VITAL SIGNS: Temperature is 97.2, pulse is down to 88, and blood pressure 131/96. GENERAL: He is in no acute distress. Awake and alert. LUNGS: Clear to auscultation bilaterally. HEART: Regular rate and rhythm without murmur. ABDOMEN: Soft, mildly distended. Bowel sounds are present. EXTREMITIES: No lower extremity edema. LABORATORY DATA: White blood cell count 9.1, hemoglobin 13.1, platelets 176. Creatinine 0.8, bilirubin 0.8, AST 46, ALT 18, alkaline phosphatase 52, albumin 2.8, and lipase 691, trending down. IMPRESSION: 1. Acute recurrent alcoholic pancreatitis, improving. 2. Cocaine positive tox screen as well. RECOMMENDATIONS: 1. Low-fat diet. 2. Wean opioids. Job ID: [id number]
--- NOTE | 2019-02-21 14:02 | PDOC.HOSPP ---
- Subjective Encounter Date: 02/21/19 Encounter Time: 08:40 Subjective: Pt seen for followup re: acute pancreatitis. says he feels better. Abdomen feels distended. - Objective Vital Signs & Weight: Vital Signs (12 hours) Temp BP Pulse Ox 02/21/19 12:00 162/111 H 02/21/19 10:27 97 02/21/19 10:23 97.2 F L 02/21/19 08:00 97 02/21/19 07:57 142/94 H 02/21/19 07:06 97.7 F 02/21/19 04:00 145/102 H 02/21/19 03:18 99.3 F Weight Weight 185 lb Most Recent Monitor Data Heart Rate from ECG 87 NIBP 162/111 NIBP BP-Mean 128 Respiration from ECG 32 SpO2 96 I&O: 02/20/19 02/21/19 02/22/19 06:59 06:59 06:59 Intake Total 2851 4921.5 Output Total 1450 1080 Balance 1401 3841.5 Result Diagrams: 02/21/19 04:35 02/21/19 04:35 Additional Labs: Accuchecks 02/21/19 02/21/19 02/20/19 10:10 05:28 20:33 POC Glucose 295 H 233 H 283 H 02/20/19 16:41 POC Glucose 305 H labs and MARs reviewed by me EKG Reviewed by me: Yes (Tele: sinus tachycardia) ROS - Review of Systems Constitutional: denies: fever, chills, sweats, weakness, malaise Gastrointestinal: reports: nausea, abdominal pain. denies: vomitting, diarrhea , constipation, melena, hematochezia - Medication Medications: Active Medications Generic Name Dose Route Start Last Admin Trade Name Freq PRN Reason Stop Dose Admin Acetaminophen 650 mg 02/18/19 22:01 02/20/19 00:01 Tylenol PO 650 mg Q4H PRN Administration Headache/Fever or Mild Pain Enoxaparin Sodium 40 mg 02/18/19 09:00 02/21/19 09:08 Lovenox SC 40 mg 0900 FLAVIO Administration Famotidine 20 mg 02/18/19 09:00 02/21/19 09:09 Pepcid SLOW IVP 20 mg Q12HR FLAVIO Administration Folic Acid 1 mg 02/19/19 09:00 02/21/19 09:09 Folvite PO 1 mg DAILY FLAVIO Administration Hydralazine HCl 10 mg 02/18/19 11:42 02/18/19 17:53 Apresoline SLOW IVP 10 mg Q6H PRN Administration SBP Greater Than 170 Fentanyl Citrate 2,000 mcg/ 100 mls @ 0 mls/hr 02/18/19 16:46 02/21/19 06:13 Sodium Chloride IV 100 mls INF PRN Administration Pain As Directed Meropenem 1 gm/ Device 50 mls @ 100 mls/hr 02/18/19 23:59 02/21/19 09:08 IVPB 50 mls 0800,1600,2359 FLAVIO Administration Sodium Chloride 1,000 mls @ 100 mls/hr 02/21/19 10:15 02/21/19 10:25 Normal Saline 0.9% IV 1,000 mls .Q10H FLAVIO Administration Insulin Human Lispro 0 units 02/18/19 22:03 02/21/19 10:24 Humalog SC 6 unit .MODERATE SLIDING SC PRN Administration Moderate Correctional Scale Iron/Minerals/Multivitamins 1 tab 02/19/19 09:00 02/21/19 09:09 Theragran M PO 1 tab DAILY FLAVIO Administration Ketorolac Tromethamine 15 mg 02/18/19 16:00 02/21/19 09:09 Toradol IVP 02/23/19 16:01 15 mg 0400,1000,1600,2200 FLAVIO Administration Magnesium Oxide 400 mg 02/19/19 09:00 02/21/19 09:09 Magnesium Oxide PO 400 mg DAILY FLAVIO Administration Ondansetron HCl 4 mg 02/18/19 09:54 02/18/19 16:03 Zofran IVP 4 mg Q6H PRN Administration Nausea/Vomiting Thiamine HCl 100 mg 02/19/19 09:00 02/21/19 09:09 Thiamine PO 100 mg DAILY FLAVIO Administration - Exam NAD Eye: anicteric sclera ENT: moist mucosa Neck: supple Heart - other findings: S1, S2, reg, tachy Gastrointestinal: normal bowel sounds, tender to palpation Extremities: no edema Neurological: no weakness Psychiatric: normal affect, normal behavior Hosp A/P (1) Acute pancreatitis Code(s): K85.90 - ACUTE PANCREATITIS WITHOUT NECROSIS OR INFECTION, UNSP Status: Acute (2) Alcohol abuse Code(s): F10.10 - ALCOHOL ABUSE, UNCOMPLICATED Status: Chronic - Plan continue antibiotics, out of bed/ambulate Clinically improving. Now on low-fat diet. Lipase trending down, 691 today. Continue IV meropenem. Pt is on YOUTH CARE WORKER for analgesia. Pt is on ASE protocol.
[2019-02-22] MEDS: fentaNYL Citrate/PF 2,000 MCG in Sodium Chloride 0.9% 60 ML IV PRN (01:06)
[2019-02-22] MEDS: Ketorolac Tromethamine 30 MG/ML VIAL IVP SCH ×4 (04:59→21:37)
[2019-02-22] MEDS: Sodium Chloride 0.9% 1,000 ML IV SCH ×2 (05:05→17:41)
[2019-02-22] MEDS: MEROPENEM 1 GM/50 ML 1 GM in Premix Bag 1 BAG IVPB SCH ×2 (09:20→17:40)
[2019-02-22] MEDS: Folic Acid 1 MG TAB PO SCH (09:22)
[2019-02-22] MEDS: Multivitamin W/ Minerals 1 TAB PO SCH (09:22)
[2019-02-22] MEDS: Magnesium Oxide 400 MG TAB PO SCH (09:22)
[2019-02-22] MEDS: Thiamine 100 MG TAB PO SCH (09:22)
[2019-02-22] MEDS: Famotidine/PF 20 mg/2ml Vial SLOW IVP SCH ×2 (09:22→21:38)
[2019-02-22] MEDS: Enoxaparin Sodium 40 MG/0.4 ML SYRINGE SC SCH (09:22)
[2019-02-22] MEDS: HumaLOG 300 UNITS/3 ML VIAL SC PRN (11:47)
--- NOTE | 2019-02-22 14:34 | PDOC.HOSPP ---
- Subjective Encounter Date: 02/22/19 Encounter Time: 09:00 Subjective: Pt seen for followup re: acute pancreatitis. Feels better. - Objective Vital Signs & Weight: Vital Signs (12 hours) Temp BP Pulse Ox 02/22/19 12:00 148/97 H 02/22/19 11:23 97.0 F L 02/22/19 08:00 95 02/22/19 07:57 153/105 H 02/22/19 07:26 98.4 F 02/22/19 03:19 98.6 F Weight Weight 190 lb Most Recent Monitor Data Heart Rate from ECG 89 NIBP 154/102 NIBP BP-Mean 119 Respiration from ECG 22 SpO2 96 I&O: 02/21/19 02/22/19 02/23/19 06:59 06:59 06:59 Intake Total 4921.5 4007 Output Total 1080 2275 400 Balance 3841.5 1732 -400 Result Diagrams: 02/21/19 04:35 02/21/19 04:35 Additional Labs: Accuchecks 02/22/19 02/22/19 02/21/19 10:44 05:28 20:50 POC Glucose 243 H 210 H 201 H 02/21/19 16:46 POC Glucose 232 H MARs and Labs reviewed by me EKG Reviewed by me: Yes (tele: sinus tachycardia) ROS - Review of Systems Constitutional: denies: fever, chills, sweats, weakness, malaise Gastrointestinal: reports: nausea, abdominal pain. denies: vomitting, diarrhea , constipation, melena, hematochezia Genitourinary: denies: dysuria, frequency, incontinence, hematuria, retention - Medication Medications: Active Medications Generic Name Dose Route Start Last Admin Trade Name Freq PRN Reason Stop Dose Admin Acetaminophen 650 mg 02/18/19 22:01 02/20/19 00:01 Tylenol PO 650 mg Q4H PRN Administration Headache/Fever or Mild Pain Enoxaparin Sodium 40 mg 02/18/19 09:00 02/22/19 09:22 Lovenox SC 40 mg 0900 FLAVIO Administration Famotidine 20 mg 02/18/19 09:00 02/22/19 09:22 Pepcid SLOW IVP 20 mg Q12HR FLAVIO Administration Folic Acid 1 mg 02/19/19 09:00 08/16/19 09:22 Folvite PO 1 mg DAILY FLAVIO Administration Hydralazine HCl 10 mg 02/18/19 11:42 02/18/19 17:53 Apresoline SLOW IVP 10 mg Q6H PRN Administration SBP Greater Than 170 Fentanyl Citrate 2,000 mcg/ 100 mls @ 0 mls/hr 02/18/19 16:46 02/22/19 01:06 Sodium Chloride IV 100 mls INF PRN Administration Pain As Directed Meropenem 1 gm/ Device 50 mls @ 100 mls/hr 02/18/19 23:59 02/22/19 09:20 IVPB 50 mls 0800,1600,2359 FLAVIO Administration Sodium Chloride 1,000 mls @ 100 mls/hr 02/21/19 10:15 02/22/19 05:05 Normal Saline 0.9% IV 1,000 mls .Q10H FLAVIO Administration Insulin Human Lispro 0 units 02/18/19 22:03 02/22/19 11:47 Humalog SC 4 unit .MODERATE SLIDING SC PRN Administration Moderate Correctional Scale Iron/Minerals/Multivitamins 1 tab 02/19/19 09:00 02/22/19 09:22 Theragran M PO 1 tab DAILY FLAVIO Administration Ketorolac Tromethamine 15 mg 02/18/19 16:00 02/22/19 09:20 Toradol IVP 02/23/19 16:01 15 mg 0400,1000,1600,2200 FLAVIO Administration Magnesium Oxide 400 mg 02/19/19 09:00 02/22/19 09:22 Magnesium Oxide PO 400 mg DAILY FLAVIO Administration Ondansetron HCl 4 mg 02/18/19 09:54 02/18/19 16:03 Zofran IVP 4 mg Q6H PRN Administration Nausea/Vomiting Sodium Chloride 10 ml 02/21/19 21:00 02/22/19 09:23 Flush - Normal Saline IVF 10 ml Q12HR FLAVIO Administration Sodium Chloride 10 ml 02/21/19 10:15 02/21/19 15:46 Flush - Normal Saline IVF 10 ml PRN PRN Administration Saline Flush Thiamine HCl 100 mg 02/19/19 09:00 02/22/19 09:22 Thiamine PO 100 mg DAILY FLAVIO Administration - Exam NAD Eye: anicteric sclera ENT: normocephalic atraumatic, moist mucosa Neck: supple Heart - other findings: S1, s2, tachy, reg Respiratory: CTAB, no wheezes Gastrointestinal: soft, normal bowel sounds, tender to palpation, distended Skin: normal turgor Musculoskeletal: normal tone Psychiatric: normal affect Hosp A/P (1) Acute pancreatitis Code(s): K85.90 - ACUTE PANCREATITIS WITHOUT NECROSIS OR INFECTION, UNSP Status: Acute (2) Alcohol abuse Code(s): F10.10 - ALCOHOL ABUSE, UNCOMPLICATED Status: Chronic - Plan continue antibiotics, PT/OT, out of bed/ambulate Slowly improving. Continue low-fat diet. Continue IV meropenem. Pt is on fentanyl SCREENING REPRESENTATIVE for analgesia. Pt is on ASE protocol.
[2019-02-22] MEDS: Acetaminophen 325 MG TAB PO PRN ×2 (14:48→21:36)
--- NOTE | 2019-02-22 15:47 | PRG ---
DATE OF SERVICE: 02/22/2019 SUBJECTIVE: Mr. Schmidt has had some increase in his abdominal bloating and discomfort today. No nausea or vomiting. OBJECTIVE: VITAL SIGNS: Temperature 98.8, blood pressure 173/108, pulse 98. GENERAL: He is in no acute distress. Alert and awake. HEENT: Eyes have no scleral icterus. Oropharynx is clear without lesions. LUNGS: Clear to auscultation bilaterally. HEART: Regular rate and rhythm. ABDOMEN: Distended, but soft. He does have tenderness somewhat diffusely. Bowel sounds are present. EXTREMITIES: No lower extremity edema. LABORATORY DATA: No new labs today. IMPRESSION: Acute recurrent alcoholic pancreatitis. He has had some increase in his abdominal bloating and distention today. RECOMMENDATIONS: 1. Continue low-fat diet as he tolerates. 2. IV fluids and try to continue to reduce opioid pain medications as he tolerates. Job ID: [id number]
[2019-02-23] MEDS: MEROPENEM 1 GM/50 ML 1 GM in Premix Bag 1 BAG IVPB SCH ×3 (00:15→16:52)
[2019-02-23] MEDS: Sodium Chloride 0.9% 1,000 ML IV SCH ×3 (00:18→16:51)
[2019-02-23] MEDS: Ketorolac Tromethamine 30 MG/ML VIAL IVP SCH ×3 (03:54→16:52)
[2019-02-23 05:03] LABS: Anion Gap 14 mmol/L (10-20); BUN (Urea Nitrogen) 7 mg/dL (8.9-20.6); Calc. Creatinine Clearance 190 mL/min (70-130); Calcium 7.7 mg/dL (7.8-10.44); Carbon Dioxide 27 mmol/L (22-29); Chloride 97 mmol/L (98-107); Estimated GFR-MDRD Greater than 90; Glucose 184 mg/dL (70-105); Lipase 106 U/L (8-78); Potassium 3.2 mmol/L (3.5-5.1); Sodium 135 mmol/L (136-145)
[2019-02-23 05:55] LABS: Hemoglobin 11.4 g/dL (14.0-18.0); Mean Corpuscular Hemoglobin 31.5 pg (27.0-31.0); Mean Corpuscular Volume 92.6 fL (78.0-98.0); Mean Platelet Volume 7.4 fL (7.4-10.4); Platelet Count 201 thou/uL (130-400); RBC Distribution Width 11.2 % (11.5-14.5); Red Blood Cell (RBC) Count 3.64 mill/uL (4.70-6.10); White Blood Cell (WBC) Count 8.8 thou/uL (4.8-10.8)
[2019-02-23 05:56] LABS: Band 24 % (5-11); Eosinophils 1 % (0-10); Lymphocytes 10 % (21-51); MDiff Complete? YES; Monocytes 18 % (0-10); Neutrophil 46 % (42-75); Platelet Morphology Comment Appears Adequate; Polychromasia SLIGHT = 2-3 cells (100X) (0-2/hpf); Reactive Lymphocytes 1 % (0-10)
[2019-02-23] MEDS: HumaLOG 300 UNITS/3 ML VIAL SC PRN ×2 (06:31→16:51)
[2019-02-23] MEDS: fentaNYL Citrate/PF 2,000 MCG in Sodium Chloride 0.9% 60 ML IV PRN (06:58)
[2019-02-23] MEDS: Famotidine/PF 20 mg/2ml Vial SLOW IVP SCH ×2 (09:34→21:43)
[2019-02-23] MEDS: Multivitamin W/ Minerals 1 TAB PO SCH (09:35)
[2019-02-23] MEDS: Folic Acid 1 MG TAB PO SCH (09:35)
[2019-02-23] MEDS: Enoxaparin Sodium 40 MG/0.4 ML SYRINGE SC SCH (09:35)
[2019-02-23] MEDS: Magnesium Oxide 400 MG TAB PO SCH (09:35)
[2019-02-23] MEDS: Thiamine 100 MG TAB PO SCH (09:35)
--- NOTE | 2019-02-23 11:03 | PRG ---
DATE OF SERVICE: 02/23/2019 SUBJECTIVE: Mr. Schmidt is having significant improvement in his pain today. He is tolerating some solid diet. He has less abdominal bloating and pressure today. OBJECTIVE: VITAL SIGNS: Temperature 99.1, blood pressure 163/99, pulse 92. GENERAL: He is in no acute distress. Alert and oriented x3. LUNGS: Clear to auscultation bilaterally. HEART: Regular rate and rhythm without murmur. ABDOMEN: Soft. Mild tenderness diffusely without guarding. Bowel sounds are present. EXTREMITIES: No lower extremity edema. LABORATORY DATA: White blood cell count 8.8, hemoglobin 11.4, platelets 201, creatinine 0.7, and lipase 106. IMPRESSION: Acute recurrent alcohol-induced pancreatitis. He is tolerating small amounts by mouth. He seems to have finally turned the corner today as far as he is feeling much better. His tachycardia has improved and seems better in general. RECOMMENDATIONS: 1. Continue low-fat diet. 2. Alcohol cessation and cocaine cessation are recommended. 3. He should hopefully be ready for discharge soon once he is tolerating adequate oral intake. Job ID: [id number]
--- NOTE | 2019-02-23 12:46 | EKG ---
Test Reason : Blood Pressure : / mmHG Vent. Rate : 057 BPM Atrial Rate : 057 BPM P-R Int : 150 ms QRS Dur : 100 ms QT Int : 410 ms P-R-T Axes : 065 040 044 degrees QTc Int : 399 ms Sinus bradycardia with sinus arrhythmia Otherwise normal ECG Confirmed by KELVIN AVALOS, SHANTA ([id number]), editor producer EVY WAKEFIELD ([id number]) on 02/23/2019 12:46:02 PM Referred By: Confirmed By:SHANTA WARREN MD
--- NOTE | 2019-02-23 17:42 | PDOC.HOSPP ---
- Subjective Encounter Date: 02/23/19 Encounter Time: 09:20 Subjective: Pt seen for followup re: acute pancreatitis. Tolerating some diet. - Objective Vital Signs & Weight: Vital Signs (12 hours) Temp BP Pulse Ox 02/23/19 16:00 157/97 H 02/23/19 15:16 99.1 F 02/23/19 14:41 98 02/23/19 12:00 151/38 H 02/23/19 11:28 99.4 F 02/23/19 08:00 153/90 H 96 02/23/19 07:09 99.1 F Weight Weight 193 lb 5.526 oz Most Recent Monitor Data Heart Rate from ECG 99 NIBP 157/97 NIBP BP-Mean 117 Respiration from ECG 38 SpO2 92 I&O: 02/22/19 02/23/19 02/24/19 06:59 06:59 06:59 Intake Total 4007 1867 Output Total 2275 3200 Balance 1732 -1333 Result Diagrams: 02/23/19 04:13 02/23/19 04:13 Additional Labs: Accuchecks 02/23/19 02/23/19 02/22/19 16:43 10:45 20:03 POC Glucose 223 H 190 H 199 H Labs and MARs reviewed by me EKG Reviewed by me: Yes (Tele: sinus tachycardia) ROS - Review of Systems Cardiovascular: denies: chest pain, palpitations, orthopnea, paroxysmal noc. dyspnea, edema, light headedness Gastrointestinal: reports: nausea, abdominal pain. denies: vomitting, diarrhea , constipation, melena, hematochezia - Medication Medications: Active Medications Generic Name Dose Route Start Last Admin Trade Name Frederickq PRN Reason Stop Dose Admin Acetaminophen 650 mg 02/18/19 22:01 02/22/19 21:36 Tylenol PO 650 mg Q4H PRN Administration Headache/Fever or Mild Pain Enoxaparin Sodium 40 mg 02/18/19 09:00 02/23/19 09:35 Lovenox SC 40 mg 0900 FLAVIO Administration Famotidine 20 mg 02/18/19 09:00 02/23/19 09:34 Pepcid SLOW IVP 20 mg Q12HR FLAVIO Administration Folic Acid 1 mg 02/19/19 09:00 02/23/19 09:35 Folvite PO 1 mg DAILY FLAVIO Administration Hydralazine HCl 10 mg 02/18/19 11:42 02/18/19 17:53 Apresoline SLOW IVP 10 mg Q6H PRN Administration SBP Greater Than 170 Fentanyl Citrate 2,000 mcg/ 100 mls @ 0 mls/hr 02/18/19 16:46 02/23/19 06:58 Sodium Chloride IV 100 mls INF PRN Administration Pain As Directed Meropenem 1 gm/ Device 50 mls @ 100 mls/hr 02/18/19 23:59 02/23/19 16:52 IVPB 50 mls 0800,1600,2359 FLAVIO Administration Sodium Chloride 1,000 mls @ 100 mls/hr 02/21/19 10:15 02/23/19 16:51 Normal Saline 0.9% IV 1,000 mls .Q10H FLAVIO Administration Insulin Human Lispro 0 units 02/18/19 22:03 02/23/19 16:51 Humalog SC 4 unit .MODERATE SLIDING SC PRN Administration Moderate Correctional Scale Iron/Minerals/Multivitamins 1 tab 02/19/19 09:00 02/23/19 09:35 Theragran M PO 1 tab DAILY FLAVIO Administration Magnesium Oxide 400 mg 02/19/19 09:00 02/23/19 09:35 Magnesium Oxide PO 400 mg DAILY FLAVIO Administration Ondansetron HCl 4 mg 02/18/19 09:54 02/18/19 16:03 Zofran IVP 4 mg Q6H PRN Administration Nausea/Vomiting Sodium Chloride 10 ml 02/21/19 21:00 02/23/19 09:35 Flush - Normal Saline IVF Not Given Q12HR FLAVIO Sodium Chloride 10 ml 02/21/19 10:15 02/21/19 15:46 Flush - Normal Saline IVF 10 ml PRN PRN Administration Saline Flush Thiamine HCl 100 mg 02/19/19 09:00 02/23/19 09:35 Thiamine PO 100 mg DAILY FLAVIO Administration - Exam NAD Eye: anicteric sclera ENT: normocephalic atraumatic Neck: supple, symmetric Heart - other findings: S1, S2, tachy, reg Respiratory: CTAB Gastrointestinal: soft, normal bowel sounds, tender to palpation Skin: normal turgor Neurological: no weakness Psychiatric: normal affect, normal behavior Hosp A/P (1) Acute pancreatitis Code(s): K85.90 - ACUTE PANCREATITIS WITHOUT NECROSIS OR INFECTION, UNSP Status: Acute (2) Hypokalemia Code(s): E87.6 - HYPOKALEMIA Status: Acute (3) Alcohol abuse Code(s): F10.10 - ALCOHOL ABUSE, UNCOMPLICATED Status: Chronic - Plan continue antibiotics, out of bed/ambulate Slowly improving, lipase 106 today. Continue low-fat diet. Continue IV meropenem, follow blood cultures. Continue ASE protocol.
[2019-02-23] MEDS: Potassium Chloride 20 MEQ TAB PO SCH ×2 (18:43→21:43)
[2019-02-24] MEDS: MEROPENEM 1 GM/50 ML 1 GM in Premix Bag 1 BAG IVPB SCH ×2 (00:37→09:12)
[2019-02-24] MEDS: fentaNYL Citrate/PF 2,000 MCG in Sodium Chloride 0.9% 60 ML IV PRN (04:10)
[2019-02-24] MEDS: Sodium Chloride 0.9% 1,000 ML IV SCH ×2 (05:00→16:35)
[2019-02-24] MEDS: Acetaminophen 325 MG TAB PO PRN ×2 (05:18→20:46)
[2019-02-24 05:33] LABS: Anion Gap 15 mmol/L (10-20); BUN (Urea Nitrogen) 6 mg/dL (8.9-20.6); Calc. Creatinine Clearance 187 mL/min (70-130); Calcium 7.8 mg/dL (7.8-10.44); Carbon Dioxide 27 mmol/L (22-29); Chloride 96 mmol/L (98-107); Estimated GFR-MDRD Greater than 90; Glucose 186 mg/dL (70-105); Lipase 76 U/L (8-78); Potassium 3.5 mmol/L (3.5-5.1); Sodium 134 mmol/L (136-145)
[2019-02-24 06:15] LABS: Band 22 % (5-11); Eosinophils 2 % (0-10); Hemoglobin 10.9 g/dL (14.0-18.0); Lymphocytes 12 % (21-51); MDiff Complete? YES; Mean Corpuscular Hemoglobin 32.3 pg (27.0-31.0); Mean Corpuscular Volume 92.5 fL (78.0-98.0); Monocytes 17 % (0-10); Myelocyte 1 % (0-0); Neutrophil 46 % (42-75); Nucleated RBC 4 % (0); Platelet Count 239 thou/uL (130-400); Platelet Morphology Comment Appears Adequate; Polychromasia SLIGHT = 2-3 cells (100X) (0-2/hpf); RBC Distribution Width 11.2 % (11.5-14.5); Red Blood Cell (RBC) Count 3.37 mill/uL (4.70-6.10); White Blood Cell (WBC) Count 10.9 thou/uL (4.8-10.8)
[2019-02-24] MEDS: HumaLOG 300 UNITS/3 ML VIAL SC PRN ×3 (06:35→18:21)
[2019-02-24] MEDS: Multivitamin W/ Minerals 1 TAB PO SCH (08:51)
[2019-02-24] MEDS: Enoxaparin Sodium 40 MG/0.4 ML SYRINGE SC SCH (08:51)
[2019-02-24] MEDS: Thiamine 100 MG TAB PO SCH (08:51)
[2019-02-24] MEDS: Folic Acid 1 MG TAB PO SCH (08:51)
[2019-02-24] MEDS: Magnesium Oxide 400 MG TAB PO SCH (08:52)
[2019-02-24] MEDS: Famotidine/PF 20 mg/2ml Vial SLOW IVP SCH ×2 (08:52→20:47)
[2019-02-24] MEDS ORDERED: traMADol HCl 50 MG TAB PO PRN (14:14)
[2019-02-24] MEDS ORDERED: Acetaminophen/Codeine 30-300mg Tablet PO PRN (14:15)
--- NOTE | 2019-02-24 14:40 | PRG ---
DATE OF SERVICE: 02/24/2019 SUBJECTIVE: Mr. Schmidt continues to take only small amounts of his solid diet. He has no nausea or vomiting. He reports his pain is significantly improved. OBJECTIVE: VITAL SIGNS: Blood pressure 156/112, pulse 91, and temperature is 99.0. GENERAL: He is in no acute distress. Awake and alert. LUNGS: Clear to auscultation bilaterally. HEART: Regular rate and rhythm. ABDOMEN: Soft, but still distended. Bowel sounds are present. EXTREMITIES: No lower extremity edema. IMPRESSION: 1. Acute alcoholic pancreatitis. It has been severe and slowly improving. He is slowly tolerating more oral intake. 2. Polysubstance abuse. RECOMMENDATIONS: 1. Alcohol cessation and cocaine cessation. 2. Low-fat diet. 3. Start weaning off the opioids. Job ID: [id number]
--- NOTE | 2019-02-24 15:16 | PDOC.HOSPP ---
- Subjective Encounter Date: 02/24/19 Encounter Time: 10:20 Subjective: Pt seen for followup re: acute pancreatitis. Feels better. - Objective Vital Signs & Weight: Vital Signs (12 hours) Temp BP Pulse Ox 02/24/19 15:05 99.6 F 02/24/19 12:00 156/112 H 02/24/19 10:33 99.0 F 02/24/19 07:42 93 L 02/24/19 07:07 98.1 F 02/24/19 06:45 98.5 F 02/24/19 05:06 99.8 F H Weight Weight 197 lb 12.074 oz Most Recent Monitor Data Heart Rate from ECG 93 NIBP 160/106 NIBP BP-Mean 124 Respiration from ECG 31 SpO2 94 I&O: 02/23/19 02/24/19 02/25/19 06:59 06:59 06:59 Intake Total 1867 2210 1660 Output Total 3200 2100 1880 Balance -1333 110 -220 Result Diagrams: 02/24/19 04:52 02/24/19 04:52 Additional Labs: Accuchecks 02/24/19 02/24/19 02/23/19 10:03 06:29 21:57 POC Glucose 318 H 179 H 144 H 02/23/19 02/23/19 16:43 05:49 POC Glucose 223 H 182 H Labs and MARs reviewed by me EKG Reviewed by me: Yes (Tele:NSR) ROS - Review of Systems Cardiovascular: denies: chest pain, palpitations, orthopnea, paroxysmal noc. dyspnea, edema, light headedness Gastrointestinal: reports: abdominal pain. denies: nausea, vomitting, diarrhea , constipation, melena, hematochezia - Medication Medications: Active Medications Generic Name Dose Route Start Last Admin Trade Name Freq PRN Reason Stop Dose Admin Acetaminophen 650 mg 02/18/19 22:01 02/24/19 05:18 Tylenol PO 650 mg Q4H PRN Administration Headache/Fever or Mild Pain Clonidine 0.1 mg 02/19/19 00:21 02/24/19 02:10 Catapres PO 0.1 mg Q4H PRN Administration SBP Greater Than 180 Enoxaparin Sodium 40 mg 02/18/19 09:00 02/24/19 08:51 Lovenox SC 40 mg 0900 FLAVIO Administration Famotidine 20 mg 02/18/19 09:00 02/24/19 08:52 Pepcid SLOW IVP 20 mg Q12HR FLAVIO Administration Folic Acid 1 mg 02/19/19 09:00 02/24/19 08:51 Folvite PO 1 mg DAILY FLAVIO Administration Hydralazine HCl 10 mg 02/18/19 11:42 02/18/19 17:53 Apresoline SLOW IVP 10 mg Q6H PRN Administration SBP Greater Than 170 Meropenem 1 gm/ Device 50 mls @ 100 mls/hr 02/18/19 23:59 02/24/19 09:12 IVPB 50 mls 0800,1600,2359 FLAVIO Administration Sodium Chloride 1,000 mls @ 100 mls/hr 02/21/19 10:15 02/24/19 05:00 Normal Saline 0.9% IV 1,000 mls .Q10H FLAVIO Administration Insulin Human Lispro 0 units 02/18/19 22:03 02/24/19 10:08 Humalog SC 8 unit .MODERATE SLIDING SC PRN Administration Moderate Correctional Scale Iron/Minerals/Multivitamins 1 tab 02/19/19 09:00 02/24/19 08:51 Theragran M PO 1 tab DAILY FLAVIO Administration Magnesium Oxide 400 mg 02/19/19 09:00 02/24/19 08:52 Magnesium Oxide PO 400 mg DAILY FLAVIO Administration Ondansetron HCl 4 mg 02/18/19 09:54 02/18/19 16:03 Zofran IVP 4 mg Q6H PRN Administration Nausea/Vomiting Sodium Chloride 10 ml 02/21/19 21:00 02/24/19 08:53 Flush - Normal Saline IVF 10 ml Q12HR FLAVIO Administration Sodium Chloride 10 ml 02/21/19 10:15 02/21/19 15:46 Flush - Normal Saline IVF 10 ml PRN PRN Administration Saline Flush Thiamine HCl 100 mg 02/19/19 09:00 02/24/19 08:51 Thiamine PO 100 mg DAILY FLAVIO Administration - Exam NAD Eye: anicteric sclera ENT: no oropharyngeal lesions Neck: supple Heart: RRR Respiratory: CTAB Gastrointestinal: soft, non-tender, distended Skin: no lesions Psychiatric: normal affect, normal behavior Hosp A/P (1) Acute pancreatitis Code(s): K85.90 - ACUTE PANCREATITIS WITHOUT NECROSIS OR INFECTION, UNSP Status: Acute (2) Alcohol abuse Code(s): F10.10 - ALCOHOL ABUSE, UNCOMPLICATED Status: Chronic (3) Hyponatremia Code(s): E87.1 - HYPO-OSMOLALITY AND HYPONATREMIA Status: Acute (4) Hypokalemia Code(s): E87.6 - HYPOKALEMIA Status: Resolved - Plan out of bed/ambulate Improving, lipase normal today. Mild hyponatremia. Continue low-fat diet. Final blood cultures negative, discontinue IV meropenem. Start oral analgesia. Discontinye fentanyl [employer]. Transfer to floor.
[2019-02-24] MEDS: Acetaminophen/Codeine 30-300mg Tablet PO PRN (18:29)
[2019-02-24] MEDS: Ketorolac Tromethamine 30 MG/ML VIAL IVP PRN (20:47)
[2019-02-25] MEDS: Sodium Chloride 0.9% 1,000 ML IV SCH (03:32)
[2019-02-25] MEDS: Acetaminophen/Codeine 30-300mg Tablet PO PRN ×3 (03:33→23:21)
[2019-02-25 05:00] LABS: Bacteria/HPF None Seen HPF (None Seen); Bilirubin Negative (Negative); Blood, Urine Trace (Negative); Clarity Clear (Clear); Glucose, Urine (Dipstick) 30 mg/dL (Negative); Leukocyte Negative Leu/uL (Negative); Nitrite Negative (Negative); Protein, Urine (Dipstick) Negative (Neg-Trace); Squamous Epithelial None Seen HPF (0-3); Urobilinogen Normal mg/dL (Less than 2); WBC/HPF 0-3 HPF (0-3)
[2019-02-25 05:04] LABS: Urine Culture Reflex No No
[2019-02-25 05:12] LABS: #Eosinphils 0.1 thou/uL (0.0-0.7); #Lymphocytes 1.2 thou/uL (1.20-3.40); #Monocytes 1.4 thou/uL (0.11-0.59); #Neutrophils 9.6 thou/uL (1.40-6.50); %Basophils 0.2 % (0.0-1.0); %Lymphocytes 9.5 % (21.0-51.0); %Monocytes 11.3 % (0.0-10.0); %Neutrophils 78.1 % (42.0-75.0); Hemoglobin 11.5 g/dL (14.0-18.0); Mean Corpuscular HGB CONC 33.1 g/dL (32.0-36.0); Mean Corpuscular Hemoglobin 30.4 pg (27.0-31.0); Mean Corpuscular Volume 91.6 fL (78.0-98.0); Mean Platelet Volume 7.1 fL (7.4-10.4); Platelet Count 294 thou/uL (130-400); RBC Distribution Width 11.4 % (11.5-14.5); Red Blood Cell (RBC) Count 3.79 mill/uL (4.70-6.10); White Blood Cell (WBC) Count 12.3 thou/uL (4.8-10.8)
[2019-02-25 05:38] LABS: Anion Gap 15 mmol/L (10-20); BUN (Urea Nitrogen) 6 mg/dL (8.9-20.6); Calc. Creatinine Clearance 187 mL/min (70-130); Carbon Dioxide 26 mmol/L (22-29); Chloride 96 mmol/L (98-107); Estimated GFR-MDRD Greater than 90; Glucose 175 mg/dL (70-105); Lipase 67 U/L (8-78); Potassium 3.1 mmol/L (3.5-5.1); Sodium 134 mmol/L (136-145)
[2019-02-25] MEDS: Folic Acid 1 MG TAB PO SCH (08:55)
[2019-02-25] MEDS: Enoxaparin Sodium 40 MG/0.4 ML SYRINGE SC SCH (08:55)
[2019-02-25] MEDS: Magnesium Oxide 400 MG TAB PO SCH (08:55)
[2019-02-25] MEDS: Multivitamin W/ Minerals 1 TAB PO SCH (08:55)
[2019-02-25] MEDS: Thiamine 100 MG TAB PO SCH (08:55)
[2019-02-25] MEDS: Famotidine/PF 20 mg/2ml Vial SLOW IVP SCH ×2 (09:30→21:56)
--- NOTE | 2019-02-25 09:30 | RAD ---
Exam: Chest 2 views HISTORY:Leukocytosis, fever Comparison: 19 February 2019 FINDINGS: Lungs: Bibasilar densities, left greater than right Cardiac silhouette: Normal size Pulmonary vessels: Normal Pleural Spaces: Bilateral pleural-based densities, left greater than right indicating pleural fluid. Pneumothorax: None Osseous abnormalities: None of acuity. IMPRESSION: Bibasilar densities, left greater than right, indicative of pleural fluid with adjacent a telectasis and/or pneumonia. Follow-up to resolution is recommended.
[2019-02-25] MEDS: HumaLOG 300 UNITS/3 ML VIAL SC PRN ×2 (11:26→17:43)
[2019-02-25] MEDS ORDERED: Furosemide 40 MG/4 ML VIAL SLOW IVP SCH (12:30)
[2019-02-25] MEDS: Acetaminophen 325 MG TAB PO PRN (12:32)
--- NOTE | 2019-02-25 12:34 | PDOC.HOSPP ---
- Subjective Encounter Date: 02/25/19 Encounter Time: 08:20 Subjective: Pt seen for followup re; pneumonia. Feels better. - Objective Vital Signs & Weight: Vital Signs (12 hours) Temp Pulse Resp BP BP Pulse Ox 02/25/19 08:00 99.8 F H 91 18 158/102 H 158/102 H 95 02/25/19 07:04 92 L 02/25/19 04:00 100.5 F H 77 18 164/99 H 92 L Weight Weight 201 lb 8 oz Most Recent Monitor Data Heart Rate from ECG 93 NIBP 160/106 NIBP BP-Mean 124 Respiration from ECG 31 SpO2 94 I&O: 02/24/19 02/25/19 02/26/19 06:59 06:59 06:59 Intake Total 2210 4300 Output Total 2100 3730 380 Balance 110 570 -380 Result Diagrams: 02/25/19 04:41 02/25/19 04:41 Additional Labs: Accuchecks 02/25/19 02/25/19 02/24/19 10:45 06:01 20:09 POC Glucose 225 H 171 H 180 H 02/24/19 17:24 POC Glucose 168 H Labs and MARs reviewed by me EKG Reviewed by me: Yes (Tele; NSR) ROS - Review of Systems Constitutional: reports: fever Cardiovascular: denies: chest pain, palpitations, orthopnea, paroxysmal noc. dyspnea, edema, light headedness Gastrointestinal: reports: abdominal pain. denies: nausea, vomitting, diarrhea , constipation, melena, hematochezia - Medication Medications: Active Medications Generic Name Dose Route Start Last Admin Trade Name Frederickq PRN Reason Stop Dose Admin Acetaminophen 650 mg 02/18/19 22:01 02/24/19 20:46 Tylenol PO 650 mg Q4H PRN Administration Headache/Fever or Mild Pain Acetaminophen/Codeine Phosphate 2 tab 02/24/19 14:15 02/25/19 03:33 Tylenol #3 PO 2 tab Q6H PRN Administration Pain Clonidine 0.1 mg 02/19/19 00:21 02/24/19 02:10 Catapres PO 0.1 mg Q4H PRN Administration SBP Greater Than 180 Enoxaparin Sodium 40 mg 02/18/19 09:00 02/25/19 08:55 Lovenox SC 40 mg 0900 FLAVIO Administration Famotidine 20 mg 02/18/19 09:00 02/25/19 09:30 Pepcid SLOW IVP 20 mg Q12HR FLAVIO Administration Folic Acid 1 mg 02/19/19 09:00 02/25/19 08:55 Folvite PO 1 mg DAILY FLAVIO Administration Hydralazine HCl 10 mg 02/18/19 11:42 02/18/19 17:53 Apresoline SLOW IVP 10 mg Q6H PRN Administration SBP Greater Than 170 Insulin Human Lispro 0 units 02/18/19 22:03 02/25/19 11:26 Humalog SC 4 unit .MODERATE SLIDING SC PRN Administration Moderate Correctional Scale Iron/Minerals/Multivitamins 1 tab 02/19/19 09:00 02/25/19 08:55 Theragran M PO 1 tab DAILY FLAVIO Administration Ketorolac Tromethamine 15 mg 02/24/19 14:15 02/24/19 20:47 Toradol IVP 03/01/19 14:16 15 mg Q6H PRN Administration Pain Magnesium Oxide 400 mg 02/19/19 09:00 02/25/19 08:55 Magnesium Oxide PO 400 mg DAILY FLAVIO Administration Ondansetron HCl 4 mg 02/18/19 09:54 02/18/19 16:03 Zofran IVP 4 mg Q6H PRN Administration Nausea/Vomiting Sodium Chloride 10 ml 02/21/19 21:00 02/25/19 11:27 Flush - Normal Saline IVF Not Given Q12HR FLAVIO Sodium Chloride 10 ml 02/21/19 10:15 02/24/19 16:37 Flush - Normal Saline IVF 10 ml PRN PRN Administration Saline Flush Thiamine HCl 100 mg 02/19/19 09:00 02/25/19 08:55 Thiamine PO 100 mg DAILY FLAVIO Administration - Exam NAD Eye: anicteric sclera ENT: moist mucosa Neck: supple Heart: RRR Respiratory - other findings: Bibasal crackles Gastrointestinal: soft, non-tender Extremities: no cyanosis Neurological: CN's grossly intact Psychiatric: normal affect, normal behavior Hosp A/P (1) Pneumonia Code(s): J18.9 - PNEUMONIA, UNSPECIFIED ORGANISM Status: Acute (2) Acute pancreatitis Code(s): K85.90 - ACUTE PANCREATITIS WITHOUT NECROSIS OR INFECTION, UNSP Status: Acute (3) Hyponatremia Code(s): E87.1 - HYPO-OSMOLALITY AND HYPONATREMIA Status: Acute (4) Alcohol abuse Code(s): F10.10 - ALCOHOL ABUSE, UNCOMPLICATED Status: Chronic (5) Hypokalemia Code(s): E87.6 - HYPOKALEMIA Status: Resolved - Plan out of bed/ambulate Start levofloxacin for pneumonia. Check CT abdo/pelvis to r/o sequelae of pancreatitis/abscess. Mild hyponatremia, likely asymptomatic. Continue low-fat diet. Continue oral analgesics. Transfer to floor.
--- NOTE | 2019-02-25 14:20 | PRG ---
DATE OF SERVICE: 02/25/2019 SUBJECTIVE: Mr. Schmidt feels much better. He is standing up in the room and tolerating his diet. He has less abdominal distention and tenderness. OBJECTIVE: VITAL SIGNS: Temperature is 102, pulse 92, and blood pressure 161/98. GENERAL: He is in no acute distress. Alert and oriented x3. HEENT: Eyes have no scleral icterus. LUNGS: Clear to auscultation bilaterally. HEART: Regular rate and rhythm without murmur. ABDOMEN: Soft, nontender, and nondistended. Bowel sounds are present. EXTREMITIES: No lower extremity edema. LABORATORY DATA: White blood cell count 12.3 today, hemoglobin 11.5. Creatinine 0.74. IMPRESSION: 1. Acute alcoholic pancreatitis, slowly improving. He seems much better symptomatically from a GI standpoint today. He is tolerating his diet well and finally starting to get up and move around a little bit. 2. He started having fever last night and chest x-ray shows density in the left lower lung concerning for pneumonia. I think that the fever he is having now was related to the pneumonia rather than his pancreas. He has been on meropenem up until yesterday. RECOMMENDATIONS: 1. Restart antibiotics geared towards pneumonia. 2. I think we can hold off a CT scan at this point given that his abdominal symptoms are so much better today. Job ID: [id number]
[2019-02-25] MEDS ORDERED: MEROPENEM 1 GM/50 ML 1 GM in Premix Bag 1 BAG IVPB SCH (17:00)
[2019-02-26] MEDS: Thiamine 100 MG TAB PO SCH (09:17)
[2019-02-26] MEDS: Multivitamin W/ Minerals 1 TAB PO SCH (09:17)
[2019-02-26] MEDS: Magnesium Oxide 400 MG TAB PO SCH (09:17)
[2019-02-26] MEDS: Folic Acid 1 MG TAB PO SCH (09:18)
[2019-02-26] MEDS: Enoxaparin Sodium 40 MG/0.4 ML SYRINGE SC SCH (09:18)
[2019-02-26] MEDS: Famotidine/PF 20 mg/2ml Vial SLOW IVP SCH ×2 (09:22→20:39)
[2019-02-26 09:54] LABS: #Eosinphils 0.1 thou/uL (0.0-0.7); #Lymphocytes 1.1 thou/uL (1.20-3.40); #Monocytes 1.1 thou/uL (0.11-0.59); #Neutrophils 11.2 thou/uL (1.40-6.50); %Basophils 0.3 % (0.0-1.0); %Eosinophils 0.6 % (0.0-10.0); %Monocytes 7.8 % (0.0-10.0); %Neutrophils 83.4 % (42.0-75.0); Hemoglobin 11.3 g/dL (14.0-18.0); Mean Corpuscular HGB CONC 33.7 g/dL (32.0-36.0); Mean Corpuscular Hemoglobin 31.4 pg (27.0-31.0); Mean Corpuscular Volume 93.1 fL (78.0-98.0); Platelet Count 332 thou/uL (130-400); RBC Distribution Width 11.6 % (11.5-14.5); Red Blood Cell (RBC) Count 3.61 mill/uL (4.70-6.10); White Blood Cell (WBC) Count 13.4 thou/uL (4.8-10.8)
[2019-02-26 10:11] LABS: Anion Gap 17 mmol/L (10-20); BUN (Urea Nitrogen) 5 mg/dL (8.9-20.6); Calc. Creatinine Clearance 156 mL/min (70-130); Calcium 8.2 mg/dL (7.8-10.44); Carbon Dioxide 26 mmol/L (22-29); Chloride 92 mmol/L (98-107); Estimated GFR-MDRD Greater than 90; Glucose 362 mg/dL (70-105); Potassium 3.8 mmol/L (3.5-5.1); Sodium 131 mmol/L (136-145)
[2019-02-26] MEDS: HumaLOG 300 UNITS/3 ML VIAL SC PRN ×3 (11:37→21:03)
[2019-02-26] MEDS: Acetaminophen/Codeine 30-300mg Tablet PO PRN (16:57)
[2019-02-26] MEDS: Ketorolac Tromethamine 30 MG/ML VIAL IVP PRN (16:57)
--- NOTE | 2019-02-26 18:16 | PDOC.HOSPP ---
- Subjective Encounter Date: 02/26/19 Encounter Time: 08:00 Subjective: Pt seen for followup re: pneumonia. Denies cough. Fevers+. Denies abdominal pain. Eating well. - Objective Vital Signs & Weight: Vital Signs (12 hours) Temp Pulse Resp BP BP Pulse Ox 02/26/19 15:52 100.5 F H 99 18 146/91 H 97 02/26/19 12:07 98.5 F 94 18 158/97 H 97 02/26/19 07:54 98 F 88 20 156/102 H 94 L Weight Weight 189 lb 13.088 oz Most Recent Monitor Data Heart Rate from ECG 93 NIBP 160/106 NIBP BP-Mean 124 Respiration from ECG 31 SpO2 94 I&O: 02/25/19 02/26/19 02/27/19 06:59 06:59 06:59 Intake Total 4300 1470 700 Output Total 3730 3255 Balance 570 -1788 700 Result Diagrams: 02/26/19 09:45 02/26/19 09:45 Additional Labs: Accuchecks 02/26/19 02/26/19 02/26/19 17:20 10:41 05:17 POC Glucose 233 H 297 H 211 H 02/25/19 20:18 POC Glucose 238 H Labs and MARs reviewed by me. EKG Reviewed by me: Yes (Tele: NSR) ROS - Review of Systems Respiratory: denies: cough, shortness of breath, SOB with excertion, pleuritic pain, wheezing Cardiovascular: denies: chest pain, palpitations, orthopnea, paroxysmal noc. dyspnea, edema, light headedness - Medication Medications: Active Medications Generic Name Dose Route Start Last Admin Trade Name Freq PRN Reason Stop Dose Admin Acetaminophen 650 mg 02/18/19 22:01 02/25/19 12:32 Tylenol PO 650 mg Q4H PRN Administration Headache/Fever or Mild Pain Acetaminophen/Codeine Phosphate 2 tab 02/24/19 14:15 02/26/19 16:57 Tylenol #3 PO 2 tab Q6H PRN Administration Pain Clonidine 0.1 mg 02/19/19 00:21 02/24/19 02:10 Catapres PO 0.1 mg Q4H PRN Administration SBP Greater Than 180 Enoxaparin Sodium 40 mg 02/18/19 09:00 02/26/19 09:18 Lovenox SC 40 mg 0900 FLAVIO Administration Famotidine 20 mg 02/18/19 09:00 02/26/19 09:22 Pepcid SLOW IVP 20 mg Q12HR FLAVIO Administration Folic Acid 1 mg 02/19/19 09:00 02/26/19 09:18 Folvite PO 1 mg DAILY FLAVIO Administration Hydralazine HCl 10 mg 02/18/19 11:42 02/18/19 17:53 Apresoline SLOW IVP 10 mg Q6H PRN Administration SBP Greater Than 170 Levofloxacin 750 mg/ Device 150 mls @ 100 mls/hr 02/25/19 12:30 02/26/19 13: 10 IVPB 150 mls 1230 FLAVIO Administration Insulin Human Lispro 0 units 02/18/19 22:03 02/26/19 18:05 Humalog SC 4 unit .MODERATE SLIDING SC PRN Administration Moderate Correctional Scale Iron/Minerals/Multivitamins 1 tab 02/19/19 09:00 02/26/19 09:17 Theragran M PO 1 tab DAILY FLAVIO Administration Ketorolac Tromethamine 15 mg 02/24/19 14:15 02/26/19 16:57 Toradol IVP 03/01/19 14:16 15 mg Q6H PRN Administration Pain Magnesium Oxide 400 mg 02/19/19 09:00 02/26/19 09:17 Magnesium Oxide PO 400 mg DAILY FLAVIO Administration Ondansetron HCl 4 mg 02/18/19 09:54 02/18/19 16:03 Zofran IVP 4 mg Q6H PRN Administration Nausea/Vomiting Sodium Chloride 10 ml 02/21/19 21:00 02/26/19 09:18 Flush - Normal Saline IVF 10 ml Q12HR FLAVIO Administration Sodium Chloride 10 ml 02/21/19 10:15 02/24/19 16:37 Flush - Normal Saline IVF 10 ml PRN PRN Administration Saline Flush Thiamine HCl 100 mg 02/19/19 09:00 02/26/19 09:17 Thiamine PO 100 mg DAILY FLAVIO Administration - Exam NAD Eye: anicteric sclera ENT: moist mucosa Neck: supple Heart: RRR Respiratory: CTAB Gastrointestinal: soft, non-tender, normal bowel sounds Neurological: no weakness Psychiatric: normal affect, normal behavior Hosp A/P (1) Pneumonia Code(s): J18.9 - PNEUMONIA, UNSPECIFIED ORGANISM Status: Acute (2) Acute pancreatitis Code(s): K85.90 - ACUTE PANCREATITIS WITHOUT NECROSIS OR INFECTION, UNSP Status: Acute (3) Hyponatremia Code(s): E87.1 - HYPO-OSMOLALITY AND HYPONATREMIA Status: Acute (4) Alcohol abuse Code(s): F10.10 - ALCOHOL ABUSE, UNCOMPLICATED Status: Chronic (5) Hypokalemia Code(s): E87.6 - HYPOKALEMIA Status: Resolved - Plan continue antibiotics, out of bed/ambulate Continue levofloxacin, follow blood cultures. Abdo improving clinically. Mild hyponatremia, likely asymptomatic. Continue low-fat diet. Continue oral analgesics. Change to aggressive insuilin sliding scale. Transfer to medical floor.
--- NOTE | 2019-02-26 18:59 | PRG ---
DATE OF SERVICE: 02/26/2019 SUBJECTIVE: Mr. Schmidt has no abdominal pain. He is tolerating a solid diet. OBJECTIVE: ABDOMEN: Soft and nontender. Minimally distended. Bowel sounds are present. IMPRESSION: 1. Acute recurrent alcoholic pancreatitis, improved. 2. Pneumonia. I think this is the primary issue keeping him in the hospital now. RECOMMENDATIONS: 1. Continue the antibiotics for pneumonia. 2. He has no abdominal pain symptoms to suggest an abdominal abscess at this point, however he has not really had much abdominal pain with severe pancreatitis. I will request CT chest, abdomen and pelvis. He is doing well clinically. Job ID: [id number] [facility]
[2019-02-27] MEDS: Acetaminophen 325 MG TAB PO PRN ×2 (00:41→23:12)
[2019-02-27] MEDS: Acetaminophen/Codeine 30-300mg Tablet PO PRN ×2 (05:33→15:19)
[2019-02-27] MEDS: HumaLOG 300 UNITS/3 ML VIAL SC PRN ×2 (05:35→17:15)
[2019-02-27 06:12] LABS: #Eosinphils 0.2 thou/uL (0.0-0.7); #Lymphocytes 1.3 thou/uL (1.20-3.40); #Monocytes 0.8 thou/uL (0.11-0.59); #Neutrophils 7.7 thou/uL (1.40-6.50); %Basophils 0.3 % (0.0-1.0); %Eosinophils 1.5 % (0.0-10.0); %Lymphocytes 13.2 % (21.0-51.0); %Monocytes 8.2 % (0.0-10.0); %Neutrophils 76.8 % (42.0-75.0); Mean Corpuscular HGB CONC 33.9 g/dL (32.0-36.0); Mean Corpuscular Hemoglobin 31.4 pg (27.0-31.0); Mean Corpuscular Volume 92.7 fL (78.0-98.0); Platelet Count 359 thou/uL (130-400); RBC Distribution Width 11.7 % (11.5-14.5); Red Blood Cell (RBC) Count 3.52 mill/uL (4.70-6.10)
[2019-02-27 06:26] LABS: Anion Gap 15 mmol/L (10-20); BUN (Urea Nitrogen) 6 mg/dL (8.9-20.6); Calc. Creatinine Clearance 164 mL/min (70-130); Calcium 8.5 mg/dL (7.8-10.44); Carbon Dioxide 26 mmol/L (22-29); Chloride 98 mmol/L (98-107); Estimated GFR-MDRD Greater than 90; Glucose 206 mg/dL (70-105); Potassium 3.7 mmol/L (3.5-5.1); Sodium 135 mmol/L (136-145)
[2019-02-27] MEDS: Famotidine/PF 20 mg/2ml Vial SLOW IVP SCH (09:31)
[2019-02-27] MEDS: Thiamine 100 MG TAB PO SCH (09:31)
[2019-02-27] MEDS: Multivitamin W/ Minerals 1 TAB PO SCH (09:31)
[2019-02-27] MEDS: Magnesium Oxide 400 MG TAB PO SCH (09:31)
[2019-02-27] MEDS: Folic Acid 1 MG TAB PO SCH (09:31)
[2019-02-27] MEDS: Enoxaparin Sodium 40 MG/0.4 ML SYRINGE SC SCH (09:32)
--- NOTE | 2019-02-27 10:13 | CT ---
CT CHEST WITH CONTRAST: CT ABDOMEN WITH CONTRAST: CT PELVIS WITH CONTRAST: HISTORY: Fever. Pneumonia. Pancreatitis. CORRELATION: None. COMPARISON: 01/30/2018 FINDINGS: CHEST: Mediastinum: No mass, lymphadenopathy or hematoma. Aorta: Normal caliber. No periaortic fat stranding. Heart: Normal heart size. No pericardial fluid. Trachea and central bronchi: Patent. Pleural spaces: Small bilateral pleural effusions. Right lung: Patchy ground glass opacities. Subsegmental atelectasis, aspiration or pneumonia in the right lower lobe. Left lung: Patchy ground glass opacities. Subsegmental atelectasis, aspiration or pneumonia in the left lower lobe. Pneumothorax: None. ABDOMEN: Gallbladder: Unremarkable. Portal vein: Patent. Liver: Diffuse hypoattenuation due to hepatic steatosis. Spleen: Appropriate enhancement. Pancreas: Normal appearing pancreas is not appreciated. There is mixed attenuation in the expected region of the pancreas, suggesting necrosis, likely due to pancreatitis. There are multiloculated, peripherally enhancing fluid collections involving the left upper quadrant and epigastric region. In completely peripherally enhancing fluid tracks along both paracolic gutters (left greater than right}. In the left upper quadrant, this collection measures 8.8 x 15.5 cm. Adrenal glands: Appropriate enhancement. Lymphadenopathy: No gastrohepatic, retrocrural or periportal lymphadenopathy. Kidneys: Symmetric enhancement. No obstructive uropathy. Mesentery: Extensive fluid in the mesentery as described above. Some of these areas of fluid have l oculation, suggesting cyst/pseudocyst. No evidence of air to suggest infected fluid collection, at this time. Alimentary canal: Gastric mucosa is unremarkable. Slightly prominent small bowel loops with mucosal thickening, predominantly left upper quadrant. Correlate for reactive change versus enteritis. Ileocecal junction is normal. Scattered fecal material in a nondistended, nondilated colon. PELVIS: Unremarkable urinary bladder. No pelvic mass, lymphadenopathy, or free air. Small amount of fluid i n the pelvis. Osseous structures: No lytic or blastic lesions in the osseous structures. IMPRESSION: 1. Diffuse hypoattenuation of the pancreas suggesting liquefication of the pancreas secondary to edward creatitis. There is extensive fluid in the abdomen, some of which is a loculated suggesting a peripancreatic cyst/pseudocyst, specifically in the left upper quadrant. There is mass effect upon t he stomach secondary to this cyst/pseudocyst. Additional fluid tracking along the mesentery is not completely encapsulated and may represent reactive change from pancreatitis. Clinical correlation is essential. A well formed abscess, requiring percutaneous drainage is not appreciated at this time. 2. Hepatic steatosis. 3. Bilateral pleural effusions with bibasilar consolidation, likely due to aspiration, atelectasis o r pneumonia. Continued surveillance is recommended. 4. Mucosal thickening involving multiple small bowel loops, predominantly left upper quadrant. Evans elate for reactive changes versus enteritis. Transcribed Date/Time: 02/27/2019 10:22 AM
[2019-02-27] MEDS ORDERED: ISOVUE-370 76%-LOCM 1 ML ONE (13:53)
--- NOTE | 2019-02-27 13:54 | PDOC.HOSPP ---
- Subjective Encounter Date: 02/27/19 Encounter Time: 07:15 Subjective: no abd pain or sob ate his breakfast well, is ambulating, had bm this am - Objective Vital Signs & Weight: Vital Signs (12 hours) Temp Pulse Resp BP BP Pulse Ox 02/27/19 08:00 98.9 F 70 18 135/84 135/84 97 02/27/19 04:00 98.7 F 73 16 136/83 97 02/27/19 02:00 99.4 F Weight Weight 189 lb 13.088 oz Most Recent Monitor Data Heart Rate from ECG 93 NIBP 160/106 NIBP BP-Mean 124 Respiration from ECG 31 SpO2 94 I&O: 02/26/19 02/27/19 02/28/19 06:59 06:59 06:59 Intake Total 1470 1180 Output Total 3255 Balance -1785 1180 Result Diagrams: 02/27/19 05:46 02/27/19 05:46 Additional Labs: Accuchecks 02/27/19 02/26/19 02/26/19 04:54 20:12 17:20 POC Glucose 175 H 232 H 233 H ROS - Medication Medications: Active Medications Generic Name Dose Route Start Last Admin Trade Name Freq PRN Reason Stop Dose Admin Acetaminophen 650 mg 02/18/19 22:01 02/27/19 00:41 Tylenol PO 650 mg Q4H PRN Administration Headache/Fever or Mild Pain Acetaminophen/Codeine Phosphate 2 tab 02/24/19 14:15 02/27/19 05:33 Tylenol #3 PO 2 tab Q6H PRN Administration Pain Clonidine 0.1 mg 02/19/19 00:21 02/24/19 02:10 Catapres PO 0.1 mg Q4H PRN Administration SBP Greater Than 180 Enoxaparin Sodium 40 mg 02/18/19 09:00 02/27/19 09:32 Lovenox SC 40 mg 0900 FLAVIO Administration Famotidine 20 mg 02/18/19 09:00 02/27/19 09:31 Pepcid SLOW IVP 20 mg Q12HR FLAVIO Administration Folic Acid 1 mg 02/19/19 09:00 02/27/19 09:31 Folvite PO 1 mg DAILY FLAVIO Administration Hydralazine HCl 10 mg 02/18/19 11:42 02/18/19 17:53 Apresoline SLOW IVP 10 mg Q6H PRN Administration SBP Greater Than 170 Levofloxacin 750 mg/ Device 150 mls @ 100 mls/hr 02/25/19 12:30 02/27/19 13: 44 IVPB 150 mls 1230 FLAVIO Administration Insulin Human Lispro 0 units 02/26/19 18:18 02/27/19 05:35 Humalog SC 3 unit .AGGRESSIVE SLIDING PRN Administration Aggressive Correctional Scale Iron/Minerals/Multivitamins 1 tab 02/19/19 09:00 02/27/19 09:31 Theragran M PO 1 tab DAILY FLAVIO Administration Ketorolac Tromethamine 15 mg 02/24/19 14:15 02/26/19 16:57 Toradol IVP 03/01/19 14:16 15 mg Q6H PRN Administration Pain Magnesium Oxide 400 mg 02/19/19 09:00 02/27/19 09:31 Magnesium Oxide PO 400 mg DAILY FLAVIO Administration Ondansetron HCl 4 mg 02/18/19 09:54 02/18/19 16:03 Zofran IVP 4 mg Q6H PRN Administration Nausea/Vomiting Sodium Chloride 10 ml 02/21/19 21:00 02/27/19 09:32 Flush - Normal Saline IVF 10 ml Q12HR FLAVIO Administration Sodium Chloride 10 ml 02/21/19 10:15 02/24/19 16:37 Flush - Normal Saline IVF 10 ml PRN PRN Administration Saline Flush Thiamine HCl 100 mg 02/19/19 09:00 02/27/19 09:31 Thiamine PO 100 mg DAILY FLAVIO Administration - Exam NAD, awake alert Eye: PERRL, anicteric sclera ENT: normocephalic atraumatic, moist mucosa Neck: supple, no JVD Heart: RRR, no murmur Respiratory: no wheezes, no rales, rhonchi Gastrointestinal: soft, normal bowel sounds, no guarding, no rigidity Neurological: CN's grossly intact, no focal deficits Psychiatric: normal affect, A&O x 3 Hosp A/P (1) Acute pancreatitis Code(s): K85.90 - ACUTE PANCREATITIS WITHOUT NECROSIS OR INFECTION, UNSP Status: Acute Qualifiers: Pancreatitis type: alcohol induced Acute pancreatitis complication: uninfected necrosis Qualified Code(s): K85.21 - Alcohol induced acute pancreatitis with uninfected necrosis (2) Pneumonia Code(s): J18.9 - PNEUMONIA, UNSPECIFIED ORGANISM Status: Acute Qualifiers: Pneumonia type: due to unspecified organism Laterality: bilateral Lung location: lower lobe of lung Qualified Code(s): J18.1 - Lobar pneumonia, unspecified organism (3) Alcohol abuse Code(s): F10.10 - ALCOHOL ABUSE, UNCOMPLICATED Status: Chronic (4) SIRS (systemic inflammatory response syndrome) Code(s): R65.10 - SIRS OF NON-INFECTIOUS ORIGIN W/O ACUTE ORGAN DYSFUNCTION Status: Acute (5) DM type 2 (diabetes mellitus, type 2) Status: Chronic Qualifiers: 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
[2019-02-27 15:27] VITALS: BMI 28.8
--- NOTE | 2019-02-27 16:06 | PRG ---
DATE OF SERVICE: 02/27/2019 SUBJECTIVE: Mr. Schmidt complains of some abdominal bloating after eating, but otherwise no acute complaints. OBJECTIVE: VITAL SIGNS: Maximum temperature at 1625 hours yesterday was 101.7, current temperature 98.9. Pulse 70, blood pressure 135/80. GENERAL: He is in no acute distress. Alert and oriented x3. GENERAL: He is in no acute distress. LUNGS: Clear to auscultation bilaterally. HEART: Regular rate and rhythm. ABDOMEN: Soft, mildly distended. Bowel sounds are present. EXTREMITIES: No lower extremity edema. LABORATORY DATA: White blood cell count 10.0, hemoglobin 11.0. Creatinine 0.81. IMPRESSION: 1. 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 Clinically, it is improved; however, CT scan shows significant necrosis and peripancreatic fluid collections. 2. Fever. This might be secondary to pneumonia. It is possible that infected pancreatic necrosis could be causing the recurrent fever. He had been on meropenem originally. He was transitioned to levofloxacin to cover pneumonia. At this point, if the pancreas is the source for infection, then we have to consider fungal source. For now, clinically, he is doing very well. He does not appear toxic. He is tolerating diet and does not have typical findings as would be expected with infected pancreatic necrosis. RECOMMENDATIONS: He has been afebrile now for almost 24 hours. If he spikes a fever again, then consider CT-guided fine-needle aspiration of the pancreatic bed for culture. Also, at that point, consider starting antifungals and ID consultation. If he has no further fevers and he continues to improve, then I think we can avoid these interventions. Job ID: [id number]
[2019-02-27] MEDS ORDERED: Insulin Glargine 10 UNITS in Pre-Filled Syringe 1 EACH SC SCH (21:00)
[2019-02-28] MEDS: traMADol HCl 50 MG TAB PO PRN ×2 (00:26→15:12)
[2019-02-28] MEDS: HumaLOG 300 UNITS/3 ML VIAL SC PRN ×3 (06:19→17:29)
[2019-02-28] MEDS: Folic Acid 1 MG TAB PO SCH (08:56)
[2019-02-28] MEDS: Thiamine 100 MG TAB PO SCH (08:56)
[2019-02-28] MEDS: Enoxaparin Sodium 40 MG/0.4 ML SYRINGE SC SCH (08:56)
[2019-02-28] MEDS: Magnesium Oxide 400 MG TAB PO SCH (08:56)
[2019-02-28] MEDS: Multivitamin W/ Minerals 1 TAB PO SCH (08:56)
[2019-02-28] MEDS ORDERED: Insulin Glargine 5 UNITS in Pre-Filled Syringe 1 EACH SC SCH (09:00)
[2019-02-28] MEDS: Insulin Glargine 10 UNITS in Pre-Filled Syringe 1 EACH SC SCH (09:44)
[2019-02-28 10:00] LABS: #Eosinphils 0.2 thou/uL (0.0-0.7); #Lymphocytes 1.3 thou/uL (1.20-3.40); #Monocytes 0.9 thou/uL (0.11-0.59); #Neutrophils 7.8 thou/uL (1.40-6.50); %Basophils 0.2 % (0.0-1.0); %Lymphocytes 12.8 % (21.0-51.0); %Monocytes 8.7 % (0.0-10.0); %Neutrophils 76.3 % (42.0-75.0); Hemoglobin 11.4 g/dL (14.0-18.0); Mean Corpuscular HGB CONC 33.6 g/dL (32.0-36.0); Mean Corpuscular Hemoglobin 31.2 pg (27.0-31.0); Mean Corpuscular Volume 92.9 fL (78.0-98.0); Platelet Count 394 thou/uL (130-400); RBC Distribution Width 11.8 % (11.5-14.5); Red Blood Cell (RBC) Count 3.64 mill/uL (4.70-6.10); White Blood Cell (WBC) Count 10.2 thou/uL (4.8-10.8)
[2019-02-28 10:05] LABS: INR-International Normal Ratio 1.3; PTT 37.5 SEC (22.9-36.1); Prothrombin Time 15.9 SEC (12.0-14.7)
[2019-02-28 10:24] LABS: ALT (SGPT) 15 U/L (8-55); AST (SGOT) 27 U/L (5-34); Albumin 3.1 g/dL (3.5-5.0); Alkaline Phosphatase 64 U/L (40-150); Anion Gap 12 mmol/L (10-20); BUN (Urea Nitrogen) 5 mg/dL (8.9-20.6); Bilirubin, Total 0.6 mg/dL (0.2-1.2); Calc. Creatinine Clearance 177 mL/min (70-130); Calcium 8.3 mg/dL (7.8-10.44); Carbon Dioxide 24 mmol/L (22-29); Chloride 97 mmol/L (98-107); Estimated GFR-MDRD Greater than 90; Globulin 3.8 g/dL (2.4-3.5); Glucose 309 mg/dL (70-105); Potassium 3.6 mmol/L (3.5-5.1); Protein, Total 6.9 g/dL (6.0-8.3); Sodium 129 mmol/L (136-145)
--- NOTE | 2019-02-28 12:44 | PDOC.HOSPP ---
- Subjective Encounter Date: 02/28/19 Encounter Time: 11:15 Subjective: abd pain is better is tolerating oral solid diet, no nausea or sob is amb in hallway very well - Objective Vital Signs & Weight: Vital Signs (12 hours) Temp Pulse Resp BP BP Pulse Ox 02/28/19 12:00 98.5 F 89 17 138/84 96 02/28/19 07:22 98 F 78 18 130/79 96 02/28/19 04:00 98.4 F Weight Admit Weight 189 lb 13.088 oz Weight 189 lb 13.088 oz Most Recent Monitor Data Heart Rate from ECG 93 NIBP 160/106 NIBP BP-Mean 124 Respiration from ECG 31 SpO2 94 I&O: 02/27/19 02/28/19 03/01/19 06:59 06:59 06:59 Intake Total 1180 0 Balance 1180 2049 Result Diagrams: 02/28/19 09:25 02/28/19 09:25 Additional Labs: Accuchecks 02/28/19 02/28/19 02/27/19 12:11 04:45 20:12 POC Glucose 280 H 233 H 229 H 02/27/19 16:17 POC Glucose 328 H ROS - Medication Medications: Active Medications Generic Name Dose Route Start Last Admin Trade Name Freq PRN Reason Stop Dose Admin Acetaminophen 650 mg 02/18/19 22:01 02/27/19 23:12 Tylenol PO 650 mg Q4H PRN Administration Headache/Fever or Mild Pain Acetaminophen/Codeine Phosphate 2 tab 02/24/19 14:15 02/27/19 15:19 Tylenol #3 PO 2 tab Q6H PRN Administration Pain Clonidine 0.1 mg 02/19/19 00:21 02/24/19 02:10 Catapres PO 0.1 mg Q4H PRN Administration SBP Greater Than 180 Enoxaparin Sodium 40 mg 02/18/19 09:00 02/28/19 08:56 Lovenox SC 40 mg 0900 FLAVIO Administration Folic Acid 1 mg 02/19/19 09:00 02/28/19 08:56 Folvite PO 1 mg DAILY FLAVIO Administration Hydralazine HCl 10 mg 02/18/19 11:42 02/18/19 17:53 Apresoline SLOW IVP 10 mg Q6H PRN Administration SBP Greater Than 170 Insulin Glargine 10 units/ 0.1 mls @ 0 mls/hr 02/28/19 09:00 02/28/19 09:44 Miscellaneous Medication SC 0.1 mls QAM FLAVIO Administration Insulin Human Lispro 0 units 02/26/19 18:18 02/28/19 12:15 Humalog SC 9 unit .AGGRESSIVE SLIDING PRN Administration Aggressive Correctional Scale Iron/Minerals/Multivitamins 1 tab 02/19/19 09:00 02/28/19 08:56 Theragran M PO 1 tab DAILY FLAVOI Administration Magnesium Oxide 400 mg 02/19/19 09:00 02/28/19 08:56 Magnesium Oxide PO 400 mg DAILY FLAVIO Administration Ondansetron HCl 4 mg 02/18/19 09:54 02/18/19 16:03 Zofran IVP 4 mg Q6H PRN Administration Nausea/Vomiting Pantoprazole Sodium 40 mg 02/28/19 09:00 02/28/19 08:56 Protonix PO 40 mg DAILY FLAVIO Administration Sodium Chloride 10 ml 02/21/19 21:00 02/28/19 09:41 Flush - Normal Saline IVF 10 ml Q12HR FLAVIO Administration Sodium Chloride 10 ml 02/21/19 10:15 02/24/19 16:37 Flush - Normal Saline IVF 10 ml PRN PRN Administration Saline Flush Thiamine HCl 100 mg 02/19/19 09:00 02/28/19 08:56 Thiamine PO 100 mg DAILY FLAVIO Administration Tramadol HCl 100 mg 02/24/19 14:14 02/28/19 00:26 Ultram PO 100 mg Q6H PRN Administration Pain - Exam NAD, awake alert Eye: PERRL, anicteric sclera ENT: no oropharyngeal lesions, moist mucosa Neck: supple, no JVD Heart: RRR, no murmur Respiratory: no wheezes, no rales Gastrointestinal: soft, normal bowel sounds, tender to palpation Gastrointestinal - other findings: mild distention+ Extremities: no clubbing, no edema Neurological: CN's grossly intact, no focal deficits Psychiatric: normal affect, A&O x 3 Hosp A/P (1) Acute pancreatitis Code(s): K85.90 - ACUTE PANCREATITIS WITHOUT NECROSIS OR INFECTION, UNSP Status: Acute Qualifiers: Pancreatitis type: alcohol induced Acute pancreatitis complication: uninfected necrosis Qualified Code(s): K85.21 - Alcohol induced acute pancreatitis with uninfected necrosis (2) Pneumonia Code(s): J18.9 - PNEUMONIA, UNSPECIFIED ORGANISM Status: Acute Qualifiers: Pneumonia type: due to unspecified organism Laterality: bilateral Lung location: lower lobe of lung Qualified Code(s): J18.1 - Lobar pneumonia, unspecified organism (3) Alcohol abuse Code(s): F10.10 - ALCOHOL ABUSE, UNCOMPLICATED Status: Chronic (4) SIRS (systemic inflammatory response syndrome) Code(s): R65.10 - SIRS OF NON-INFECTIOUS ORIGIN W/O ACUTE ORGAN DYSFUNCTION Status: Acute (5) DM type 2 (diabetes mellitus, type 2) Status: Chronic Qualifiers: Diabetes mellitus [facility] insulin use: without complaint supervisor use - Plan hemostable CT results noted is on oral fat restricted diet increase dose of lantus bid oral iron on levaquin had temp of 99 overnight down from 102 earlier. Needs close monitoring to watch for signs of infection in necrotic pancreas
[2019-02-28] MEDS: Acetaminophen 325 MG TAB PO PRN (15:13)
[2019-02-28] MEDS: Insulin Glargine 15 UNITS in Pre-Filled Syringe 1 EACH SC SCH (20:20)
[2019-03-01] MEDS: HumaLOG 300 UNITS/3 ML VIAL SC PRN ×2 (06:06→12:54)
[2019-03-01] MEDS: Magnesium Oxide 400 MG TAB PO SCH (08:30)
[2019-03-01] MEDS: Multivitamin W/ Minerals 1 TAB PO SCH (08:30)
[2019-03-01] MEDS: Folic Acid 1 MG TAB PO SCH (08:30)
[2019-03-01] MEDS: Enoxaparin Sodium 40 MG/0.4 ML SYRINGE SC SCH (08:30)
[2019-03-01] MEDS: Thiamine 100 MG TAB PO SCH (08:30)
[2019-03-01] MEDS ORDERED: Clopidogrel Bisulfate 75 MG TAB ONE (09:16)
[2019-03-01] MEDS: Insulin Glargine 10 UNITS in Pre-Filled Syringe 1 EACH SC SCH (09:18)
--- NOTE | 2019-03-01 11:01 | PDOC.HOSPP ---
- Subjective Encounter Date: 03/01/19 Encounter Time: 07:15 Subjective: had some abd pain this am after eating breakfast no nausea, is amb well - Objective Vital Signs & Weight: Vital Signs (12 hours) Temp Pulse Resp BP Pulse Ox 03/01/19 07:18 98.9 F 77 18 141/85 H 97 03/01/19 04:00 99.0 F 80 20 137/84 98 Weight Admit Weight 189 lb 13.088 oz Weight 189 lb 13.088 oz Most Recent Monitor Data Heart Rate from ECG 93 NIBP 160/106 NIBP BP-Mean 124 Respiration from ECG 31 SpO2 94 I&O: 02/28/19 03/01/19 03/02/19 06:59 06:59 06:59 Intake Total 2049 2199 Balance 2049 2199 Result Diagrams: 02/28/19 09:25 02/28/19 09:25 Additional Labs: Accuchecks 03/01/19 02/28/19 02/28/19 04:26 19:26 15:57 POC Glucose 175 H 204 H 202 H 02/28/19 12:11 POC Glucose 280 H ROS - Medication Medications: Active Medications Generic Name Dose Route Start Last Admin Trade Name Freq PRN Reason Stop Dose Admin Acetaminophen 650 mg 02/18/19 22:01 02/28/19 15:13 Tylenol PO 650 mg Q4H PRN Administration Headache/Fever or Mild Pain Acetaminophen/Codeine Phosphate 2 tab 02/24/19 14:15 02/27/19 15:19 Tylenol #3 PO 2 tab Q6H PRN Administration Pain Clonidine 0.1 mg 02/19/19 00:21 02/24/19 02:10 Catapres PO 0.1 mg Q4H PRN Administration SBP Greater Than 180 Enoxaparin Sodium 40 mg 02/18/19 09:00 03/01/19 08:30 Lovenox SC 40 mg 0900 FLAVIO Administration Folic Acid 1 mg 02/19/19 09:00 03/01/19 08:30 Folvite PO 1 mg DAILY FLAVIO Administration Hydralazine HCl 10 mg 02/18/19 11:42 02/18/19 17:53 Apresoline SLOW IVP 10 mg Q6H PRN Administration SBP Greater Than 170 Insulin Glargine 15 units/ 0.15 mls @ 0 mls/hr 02/28/19 21:00 02/28/19 20:20 Miscellaneous Medication SC 0.15 mls HS FLAVIO Administration Insulin Glargine 10 units/ 0.1 mls @ 0 mls/hr 02/28/19 09:00 03/01/19 09:18 Miscellaneous Medication SC 0.1 mls QAM FLAVIO Administration Insulin Human Lispro 0 units 02/26/19 18:18 03/01/19 06:06 Humalog SC 3 unit .AGGRESSIVE SLIDING PRN Administration Aggressive Correctional Scale Iron/Minerals/Multivitamins 1 tab 02/19/19 09:00 03/01/19 08:30 Theragran M PO 1 tab DAILY FLAVIO Administration Magnesium Oxide 400 mg 02/19/19 09:00 03/01/19 08:30 Magnesium Oxide PO 400 mg DAILY FLAVIO Administration Ondansetron HCl 4 mg 02/18/19 09:54 02/18/19 16:03 Zofran IVP 4 mg Q6H PRN Administration Nausea/Vomiting Pantoprazole Sodium 40 mg 02/28/19 09:00 03/01/19 08:30 Protonix PO 40 mg DAILY FLAVIO Administration Sodium Chloride 10 ml 02/21/19 21:00 03/01/19 08:36 Flush - Normal Saline IVF 10 ml Q12HR FLAVIO Administration Sodium Chloride 10 ml 02/21/19 10:15 02/24/19 16:37 Flush - Normal Saline IVF 10 ml PRN PRN Administration Saline Flush Thiamine HCl 100 mg 02/19/19 09:00 03/01/19 08:30 Thiamine PO 100 mg DAILY FLAVIO Administration Tramadol HCl 100 mg 02/24/19 14:14 02/28/19 15:12 Ultram PO 100 mg Q6H PRN Administration Pain - Exam NAD, awake alert Eye: PERRL, anicteric sclera ENT: normocephalic atraumatic, no oropharyngeal lesions Neck: supple, no JVD Heart: RRR, no murmur Respiratory: no wheezes, no rales Gastrointestinal: soft, normal bowel sounds, tender to palpation Extremities: no cyanosis, no edema Neurological: CN's grossly intact, no focal deficits Psychiatric: normal affect, A&O x 3 Hosp A/P (1) Acute pancreatitis Code(s): K85.90 - ACUTE PANCREATITIS WITHOUT NECROSIS OR INFECTION, UNSP Status: Acute Qualifiers: Pancreatitis type: alcohol induced Acute pancreatitis complication: uninfected necrosis Qualified Code(s): K85.21 - Alcohol induced acute pancreatitis with uninfected necrosis (2) Pneumonia Code(s): J18.9 - PNEUMONIA, UNSPECIFIED ORGANISM Status: Acute Qualifiers: Pneumonia type: due to unspecified organism Laterality: bilateral Lung location: lower lobe of lung Qualified Code(s): J18.1 - Lobar pneumonia, unspecified organism (3) Alcohol abuse Code(s): F10.10 - ALCOHOL ABUSE, UNCOMPLICATED Status: Chronic (4) SIRS (systemic inflammatory response syndrome) Code(s): R65.10 - SIRS OF NON-INFECTIOUS ORIGIN W/O ACUTE ORGAN DYSFUNCTION Status: Acute (5) DM type 2 (diabetes mellitus, type 2) Status: Chronic Qualifiers: Diabetes mellitus 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
[2019-03-01] MEDS: traMADol HCl 50 MG TAB PO PRN ×2 (12:57→22:10)
--- NOTE | 2019-03-01 17:10 | PRG ---
DATE OF SERVICE: 03/01/2019 SUBJECTIVE: Mr. Schmidt is feeling well. He is up walking the halls. He has no abdominal pain and he is tolerating his diet well. OBJECTIVE: VITAL SIGNS: Temperature 98.6, blood pressure 141/85, pulse 77. GENERAL: He is in no acute distress. Awake and alert. LUNGS: Clear to auscultation bilaterally. HEART: Regular rate and rhythm without murmur. ABDOMEN: Soft and mildly distended without tenderness or guarding. Bowel sounds are present. EXTREMITIES: No lower extremity edema. IMPRESSION: 1. Acute recurrent alcoholic necrotizing pancreatitis. He has multiple fluid collections around necrotic-appearing pancreas by CT scan. 2. Fever. He was initially treated empirically with meropenem. The day after the meropenem was stopped, he started spiking fevers. However, he also was found to have an infiltrate in his lung. He was started on levofloxacin for pneumonia. Since then, he has had no abdominal pain and he has been advancing his diet. He spiked fever for several days; however, he has now been afebrile for the last 24 hours. RECOMMENDATIONS: 1. Continue low-fat diet. 2. As long as he is tolerating his diet well, I would think he can discharge home in the next day or two as long as he remains afebrile. His white blood cell count has been normal. 3. If he starts spiking fevers again, then he will likely need to restart broad-spectrum antibiotics for abdominal coverage as well as potentially antifungals at this point. Fine-needle aspiration of the pancreatic bed could be considered. Currently, he does not appear sick at all and has no fever for 24 hours and I think we can avoid these interventions. I anticipate he can likely discharge home in the next couple of days. 4. I will sign off for now. Dr. Schafer will be covering the weekend and if the patient starts having problems again, please call Dr. Schafer back as needed. Job ID: [id number]
[2019-03-01] MEDS: Insulin Glargine 15 UNITS in Pre-Filled Syringe 1 EACH SC SCH (20:07)
[2019-03-02] MEDS: Multivitamin W/ Minerals 1 TAB PO SCH (08:29)
[2019-03-02] MEDS: Thiamine 100 MG TAB PO SCH (08:30)
[2019-03-02] MEDS: Enoxaparin Sodium 40 MG/0.4 ML SYRINGE SC SCH (08:30)
[2019-03-02] MEDS: Folic Acid 1 MG TAB PO SCH (08:30)
[2019-03-02] MEDS: Magnesium Oxide 400 MG TAB PO SCH (08:30)
[2019-03-02] MEDS: Insulin Glargine 10 UNITS in Pre-Filled Syringe 1 EACH SC SCH (08:36)
--- NOTE | 2019-03-02 10:42 | PDOC.HOSPP ---
- Subjective Encounter Date: 03/02/19 Encounter Time: 07:25 Subjective: no abd pain or nausea feels better is amb and eating - Objective Vital Signs & Weight: Vital Signs (12 hours) Temp Pulse Resp BP BP Pulse Ox 03/02/19 07:46 98.7 F 76 16 120/80 98 03/02/19 04:02 116/78 03/02/19 04:00 98.3 F 70 20 116/78 95 03/02/19 00:13 130/87 03/02/19 00:00 98.8 F 85 20 138/87 97 Weight Admit Weight 189 lb 13.088 oz Weight 189 lb 13.088 oz Most Recent Monitor Data Heart Rate from ECG 93 NIBP 160/106 NIBP BP-Mean 124 Respiration from ECG 31 SpO2 94 I&O: 03/01/19 03/02/19 03/03/19 06:59 06:59 06:59 Intake Total 2200 2300 Output Total 0 Balance 2200 2300 Result Diagrams: 02/28/19 09:25 02/28/19 09:25 Additional Labs: Accuchecks 03/02/19 03/01/19 03/01/19 05:37 19:36 15:31 POC Glucose 122 H 147 H 136 H 03/01/19 11:10 POC Glucose 210 H ROS - Medication Medications: Active Medications Generic Name Dose Route Start Last Admin Trade Name Freq PRN Reason Stop Dose Admin Acetaminophen 650 mg 02/18/19 22:01 02/28/19 15:13 Tylenol PO 650 mg Q4H PRN Administration Headache/Fever or Mild Pain Acetaminophen/Codeine Phosphate 2 tab 02/24/19 14:15 02/27/19 15:19 Tylenol #3 PO 2 tab Q6H PRN Administration Pain Clonidine 0.1 mg 02/19/19 00:21 02/24/19 02:10 Catapres PO 0.1 mg Q4H PRN Administration SBP Greater Than 180 Enoxaparin Sodium 40 mg 02/18/19 09:00 03/02/19 08:30 Lovenox SC 40 mg 0900 FLAVIO Administration Folic Acid 1 mg 02/19/19 09:00 03/02/19 08:30 Folvite PO 1 mg DAILY FLAVIO Administration Hydralazine HCl 10 mg 02/18/19 11:42 02/18/19 17:53 Apresoline SLOW IVP 10 mg Q6H PRN Administration SBP Greater Than 170 Insulin Glargine 15 units/ 0.15 mls @ 0 mls/hr 02/28/19 21:00 03/01/19 20:07 Miscellaneous Medication SC 0.15 mls HS FLAVIO Administration Insulin Glargine 10 units/ 0.1 mls @ 0 mls/hr 02/28/19 09:00 03/02/19 08:36 Miscellaneous Medication SC 0.1 mls QAM FLAVIO Administration Insulin Human Lispro 0 units 02/26/19 18:18 03/01/19 12:54 Humalog SC 6 unit .AGGRESSIVE SLIDING PRN Administration Aggressive Correctional Scale Iron/Minerals/Multivitamins 1 tab 02/19/19 09:00 03/02/19 08:29 Theragran M PO 1 tab DAILY FLAVIO Administration Levofloxacin 500 mg 03/01/19 12:00 03/01/19 12:54 Levaquin PO 500 mg 1200 FLAVIO Administration Magnesium Oxide 400 mg 02/19/19 09:00 03/02/19 08:30 Magnesium Oxide PO 400 mg DAILY FLAVIO Administration Ondansetron HCl 4 mg 02/18/19 09:54 02/18/19 16:03 Zofran IVP 4 mg Q6H PRN Administration Nausea/Vomiting Pantoprazole Sodium 40 mg 02/28/19 09:00 03/02/19 08:29 Protonix PO 40 mg DAILY FLAVIO Administration Sodium Chloride 10 ml 02/21/19 21:00 03/02/19 08:30 Flush - Normal Saline IVF 10 ml Q12HR FLAVIO Administration Sodium Chloride 10 ml 02/21/19 10:15 02/24/19 16:37 Flush - Normal Saline IVF 10 ml PRN PRN Administration Saline Flush Thiamine HCl 100 mg 02/19/19 09:00 03/02/19 08:30 Thiamine PO 100 mg DAILY FLAVIO Administration Tramadol HCl 100 mg 02/24/19 14:14 03/01/19 22:10 Ultram PO 100 mg Q6H PRN Administration Pain - Exam NAD, awake alert Eye: PERRL, anicteric sclera ENT: normocephalic atraumatic, no oropharyngeal lesions Neck: supple, no JVD Heart: RRR, no murmur Respiratory: no wheezes, no rales Gastrointestinal: soft, normal bowel sounds, tender to palpation, distended Extremities: no cyanosis, no edema Neurological: CN's grossly intact, no focal deficits Psychiatric: normal affect, A&O x 3 Hosp A/P (1) Acute pancreatitis Code(s): K85.90 - ACUTE PANCREATITIS WITHOUT NECROSIS OR INFECTION, UNSP Status: Acute Qualifiers: Pancreatitis type: alcohol induced Acute pancreatitis complication: uninfected necrosis Qualified Code(s): K85.21 - Alcohol induced acute pancreatitis with uninfected necrosis (2) Pneumonia Code(s): J18.9 - PNEUMONIA, UNSPECIFIED ORGANISM Status: Acute Qualifiers: Pneumonia type: due to unspecified organism Laterality: bilateral Lung location: lower lobe of lung Qualified Code(s): J18.1 - Lobar pneumonia, unspecified organism (3) Alcohol abuse Code(s): F10.10 - ALCOHOL ABUSE, UNCOMPLICATED Status: Chronic (4) SIRS (systemic inflammatory response syndrome) Code(s): R65.10 - SIRS OF NON-INFECTIOUS ORIGIN W/O ACUTE ORGAN DYSFUNCTION Status: Acute (5) DM type 2 (diabetes mellitus, type 2) Status: Chronic Qualifiers: 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
[2019-03-02] MEDS: HumaLOG 300 UNITS/3 ML VIAL SC PRN (12:13)
[2019-03-02] MEDS: traMADol HCl 50 MG TAB PO PRN (18:54)
[2019-03-02] MEDS: Acetaminophen 325 MG TAB PO PRN (20:50)
[2019-03-02] MEDS: Insulin Glargine 15 UNITS in Pre-Filled Syringe 1 EACH SC SCH (20:50)
[2019-03-03] MEDS: Multivitamin W/ Minerals 1 TAB PO SCH (08:44)
[2019-03-03] MEDS: Thiamine 100 MG TAB PO SCH (08:44)
[2019-03-03] MEDS: Folic Acid 1 MG TAB PO SCH (08:44)
[2019-03-03] MEDS: Magnesium Oxide 400 MG TAB PO SCH (08:44)
[2019-03-03] MEDS: Enoxaparin Sodium 40 MG/0.4 ML SYRINGE SC SCH (08:45)
[2019-03-03] MEDS: Insulin Glargine 10 UNITS in Pre-Filled Syringe 1 EACH SC SCH (08:46)
[2019-03-03 11:42] VITALS: BP 126/84; TEMP 97.6
--- NOTE | 2019-03-03 13:41 | DIS ---
DATE OF ADMISSION: 02/17/2019 DATE OF DISCHARGE: 03/03/2019 DISCHARGE DISPOSITION: Home. PRIMARY DISCHARGE DIAGNOSES: Necrotic severe pancreatitis, pneumonia/ atelectasis. 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 PROCEDURES DONE DURING HOSPITALIZATION: CT chest, abdomen and pelvis done on 02/27/2019 showed diffuse hypoattenuation of the pancreas suggesting liquefaction of the pancreas secondary to pancreatitis. There is extensive fluid in the abdomen , some of which is loculated suggesting a peripancreatic cyst/pseudocyst, specifically in the left upper quadrant. There is mass effect up on the stomach secondary to this. Additional fluid tracking along the mesentery is not completely encapsulated and may represent reactive change from pancreatitis. No well-formed abscess was seen. Hepatic steatosis was seen. Bilateral pleural effusion with bibasilar consolidation/atelectasis. Abdominal ultrasound done on the day of admission showed diffuse increased hepatic echotexture suggesting steatosis or hepatocellular disease. No gallbladder pathology was seen. Blood cultures x4 negative. Discharge H and H 11 and 33, platelet count 394 with white count of 10. INR 1.3, PTT 37. Lipase on admission was 426, which joselito up to 1690 and has come down to 67 on the . Discharge total bilirubin 0.6. Liver enzymes within normal limits. Albumin is 3.1. Urine drug screen was positive for cocaine and opiates. Syphilis IgG and IgM were nonreactive. INPATIENT CONSULTATION: Dr. Renny Munguia for Gastroenterology. DISCHARGE MEDICATIONS: 1. Levaquin 500 mg p.o. daily for another seven days. 2. Levemir 10 units subcu q.a.m. and 15 units subcu at bedtime. 3. Motrin p.r.n. for pain. ALLERGIES: NO KNOWN DRUG ALLERGIES. DISCHARGE PLAN: The patient is to follow up with primary care physician in 1 week. He also needs to follow up with Dr. Renny Munguia in 4 weeks. BRIEF COURSE DURING HOSPITALIZATION: The patient initially got admitted on the with complaints of abdominal pain. He also admitted to drinking nearly 12 to 18 beers. He was essentially admitted for acute pancreatitis. He has had prior episode of pancreatitis in January of 2018 as well due to alcohol use. The patient was kept n.p.o. and was aggressively hydrated. He has had a repeat CAT scan done on the , which showed severe necrotizing pancreatitis. No obvious abscess was noted. Prior to discharge, he is ambulating and eating well. The last three days, the patient has not had any spikes in fever except for a temperature of 99, prior to which the patient has had off and on temperatures going up to 100.3. He has been advised to come to the nearest emergency room if he were to develop fever of more than 100 or abdominal pain with distention. He is strongly counseled against using any alcohol. He is hemodynamically stable and has been cleared by Gastroenterology for discharge. Please note I have seen and examined the patient on the day of discharge. Job ID: [id number] MTDD
== END 2019-03-03 12:18 | disposition home or self-care (01) | DRG 438 ==
LOC: ERS 18:11 → SJJU 22:06 → IMCU/EMU 02-18 23:14 → 2NO 02-24 15:34 → T4-B 02-26 16:27
PROVIDERS: ADMIT Family Medicine; ATTEND Family Medicine
DX: K85.21 Alcohol induced acute pancreatitis with uninfected necrosis (principal); J18.1 Lobar pneumonia, unspecified organism; E87.1 Hypo-osmolality and hyponatremia; R65.10 Systemic inflammatory response syndrome (SIRS) of non-infectious origin without acute organ dysfunction; J98.11 Atelectasis; R00.0 Tachycardia, unspecified; R09.02 Hypoxemia; E87.6 Hypokalemia; F19.10 Other psychoactive substance abuse, uncomplicated; F10.10 Alcohol abuse, uncomplicated; E08.9 Diabetes mellitus due to underlying condition without complications; Z79.84 Long term (current) use of oral hypoglycemic drugs
CPT/HCPCS: 36415; 36416; 71045; 71046; 71260; 74177; 76705; 80048; 80053; 80306; 81001; 81003; 81015; 82248; 83605; 83690; 83735; 84100; 85025; 85610; 85730; 86780; 87040; 90471; 90732; 93005; 93010; 94760; 96361; 96374; 96375; G0009; J0360; J1650; J1815; J1885; J1940; J1956; J2185; J2270; J2310; J2405; J3010; J3411; J3475; J3490; Q9966; S0028

== ENCOUNTER 2022-02-17 13:44 | Inpatient (IN) | payer SELFPAY ==
[2022-02-17] MEDS ORDERED: Iopamidol-370 76% 500 ML 1 ML ONE (14:27)
[2022-02-17 14:35] LABS: #Lymphocytes 0.6 thou/uL (1.20-3.40); #Monocytes 1.2 thou/uL (0.11-0.59); #Neutrophils 17.9 thou/uL (1.40-6.50); %Eosinophils 0.1 % (0.0-10.0); %Lymphocytes 3.2 % (21.0-51.0); %Monocytes 5.9 % (0.0-10.0); %Neutrophils 90.7 % (42.0-75.0); Hemoglobin 18.1 g/dL (14.0-18.0); Mean Corpuscular Hemoglobin 32.1 pg (27.0-31.0); Mean Corpuscular Volume 91.8 fL (78.0-98.0); Mean Platelet Volume 7.9 fL (7.4-10.4); Platelet Count 280 thou/uL (130-400); RBC Distribution Width 11.7 % (11.5-14.5); Red Blood Cell (RBC) Count 5.64 mill/uL (4.70-6.10); White Blood Cell (WBC) Count 19.7 thou/uL (4.8-10.8)
[2022-02-17 15:00] LABS: ALT (SGPT) 96 U/L (8-55); AST (SGOT) 130 U/L (5-34); Albumin 5.1 g/dL (3.5-5.0); Alkaline Phosphatase 108 U/L (40-110); Anion Gap 27 mmol/L (10-20); BUN (Urea Nitrogen) 16 mg/dL (8.9-20.6); Bilirubin, Total 0.9 mg/dL (0.2-1.2); Calc. Creatinine Clearance 0 mL/min (70-130); Calcium 10.3 mg/dL (7.8-10.44); Carbon Dioxide 19 mmol/L (22-29); Chloride 93 mmol/L (98-107); Estimated GFR 81; Globulin 4.1 g/dL (2.4-3.5); Glucose 359 mg/dL (70-105); Potassium 4.6 mmol/L (3.5-5.1); Protein, Total 9.2 g/dL (6.0-8.3); Sodium 134 mmol/L (136-145)
[2022-02-17 15:13] LABS: Lipase 1843 U/L (8-78)
[2022-02-17] MEDS ORDERED: Morphine 4 MG/ML VIAL ONE (15:32)
[2022-02-17] MEDS ORDERED: Ondansetron PF 4 MG/2 ML Vial ONE (15:32)
[2022-02-17] MEDS ORDERED: INSULIN REGULAR IN 0.9 % NACL 100 UNIT/100 ML BAG ONE (16:36)
[2022-02-17 16:55] LABS: Actual Bicarbonate (HCO3v) 24 mEq/L (22-28); Analyzer IN Cardio ER; Base Excess -2.4 mEq/L (-2.0 to +3.0); Calcium, Ionized (venous) 1.08 mmol/L (1.16-1.32); Chloride (VBG) 94 mmol/L (98-106); Hemoglobin (Hb) 17.4 g/dL (13.2-17.3); Potassium (VBG) 5.66 mmol/L (3.70-5.30); Sodium 133.1 mmol/L (133-146); pH (venous) 7.32 (7.32-7.43)
[2022-02-17] MEDS ORDERED: Sodium Chloride 0.9% 1,000 ML IV PRN ×4 (17:50)
[2022-02-17] MEDS ORDERED: Ondansetron PF 4 MG/2 ML Vial IVP PRN (17:50)
[2022-02-17] MEDS ORDERED: NS 0.9% w/ 20 MEQ KCL 1,000 ML IV PRN ×2 (17:50)
[2022-02-17] MEDS ORDERED: Dextrose 5 %-0.45 % NaCl 1,000 ML IV PRN (17:50)
[2022-02-17] MEDS ORDERED: Electrolyte Replacement Protocol 1 EACH IVPB SCH (17:50)
[2022-02-17] MEDS ORDERED: HUMULIN R 100 UNITS in Sodium Chloride 0.9% 100 ML IVPB SCH (18:00)
[2022-02-17] MEDS ORDERED: Lactated Ringer's 1,000 ML IV SCH (18:00)
[2022-02-17] MEDS ORDERED: Lorazepam 2 MG/ML VIAL IM PRN (18:08)
[2022-02-17] MEDS ORDERED: Lorazepam 1 MG TAB PO PRN (18:08)
[2022-02-17] MEDS ORDERED: Ondansetron ODT 4 MG TAB PO PRN (18:08)
[2022-02-17] MEDS ORDERED: Electrolyte Replacement Protocol 1 EACH FS SCH (18:15)
[2022-02-17 18:51] LABS: SARS-CoV-2 NAA Rapid Test Not Detected (NotDetected)
[2022-02-17 18:53] LABS: Anion Gap 20 mmol/L (10-20); BUN (Urea Nitrogen) 15 mg/dL (8.9-20.6); Calc. Creatinine Clearance 0 mL/min (70-130); Calcium 9.1 mg/dL (7.8-10.44); Carbon Dioxide 20 mmol/L (22-29); Chloride 101 mmol/L (98-107); Estimated GFR 109; Glucose 206 mg/dL (70-105); Potassium 4.2 mmol/L (3.5-5.1); Sodium 137 mmol/L (136-145)
[2022-02-17] MEDS: Lorazepam 1 MG TAB PO SCH ×2 (20:07→23:22)
[2022-02-17] MEDS: Thiamine HCl 200 MG/2 ML VIAL SLOW IVP SCH (20:07)
[2022-02-17] MEDS: Morphine 2 MG/ML VIAL SLOW IVP PRN ×2 (20:17→23:22)
[2022-02-17 20:21] VITALS: BMI 23.6
[2022-02-17] MEDS ORDERED: hydrALAZINE 20 MG/ML VIAL SLOW IVP PRN (22:06)
[2022-02-17] MEDS: D5 1/2 NS w/20 mEq KCL 1,000 ML IV PRN (22:14)
[2022-02-17 22:18] VITALS: BP 187/109
[2022-02-18 00:35] LABS: Anion Gap 13 mmol/L (10-20); BUN (Urea Nitrogen) 14 mg/dL (8.9-20.6); Calc. Creatinine Clearance 147 mL/min (70-130); Calcium 8.2 mg/dL (7.8-10.44); Carbon Dioxide 25 mmol/L (22-29); Chloride 104 mmol/L (98-107); Estimated GFR 123; Glucose 180 mg/dL (70-105); Potassium 4.1 mmol/L (3.5-5.1); Sodium 138 mmol/L (136-145)
[2022-02-18] MEDS: D5 1/2 NS w/20 mEq KCL 1,000 ML IV PRN ×2 (02:14→05:16)
[2022-02-18 04:38] LABS: Anion Gap 10 mmol/L (10-20); BUN (Urea Nitrogen) 11 mg/dL (8.9-20.6); Calc. Creatinine Clearance 155 mL/min (70-130); Carbon Dioxide 26 mmol/L (22-29); Chloride 104 mmol/L (98-107); Estimated GFR 126; Glucose 132 mg/dL (70-105); Potassium 3.7 mmol/L (3.5-5.1); Sodium 136 mmol/L (136-145)
[2022-02-18 04:57] LABS: #Monocytes 1.2 thou/uL (0.11-0.59); #Neutrophils 14.1 thou/uL (1.40-6.50); %Basophils 0.1 % (0.0-1.0); %Eosinophils 0.1 % (0.0-10.0); %Lymphocytes 6.3 % (21.0-51.0); %Monocytes 7.2 % (0.0-10.0); %Neutrophils 86.3 % (42.0-75.0); Mean Corpuscular HGB CONC 34.1 g/dL (32.0-36.0); Mean Platelet Volume 7.5 fL (7.4-10.4); Platelet Count 216 thou/uL (130-400); RBC Distribution Width 11.6 % (11.5-14.5); Red Blood Cell (RBC) Count 4.68 mill/uL (4.70-6.10); White Blood Cell (WBC) Count 16.4 thou/uL (4.8-10.8)
[2022-02-18] MEDS: Morphine 2 MG/ML VIAL SLOW IVP PRN ×2 (05:16→22:02)
[2022-02-18] MEDS: Lorazepam 1 MG TAB PO SCH ×3 (05:16→18:11)
[2022-02-18] MEDS: Enoxaparin Sodium 40 MG/0.4 ML SYRINGE SC SCH (08:43)
[2022-02-18] MEDS: Folic Acid 1 MG TAB PO SCH (08:43)
[2022-02-18] MEDS: Multivit, Therapeutic 1 TAB PO SCH (08:43)
[2022-02-18] MEDS ORDERED: Insulin Glargine 30 UNITS/0.3 ML VIAL SC SCH (10:30)
[2022-02-18] MEDS ORDERED: Electrolyte Replacement Protocol FS PRN (10:30)
[2022-02-18] MEDS ORDERED: Sodium Chloride 0.9% 1,000 ML IV SCH (10:30)
[2022-02-18] MEDS: Sodium Chloride 0.9% 1,000 ML IV SCH ×2 (12:04→17:15)
[2022-02-18] MEDS ORDERED: HumaLOG 300 UNITS/3 ML VIAL SC PRN ×2 (16:44)
[2022-02-18] MEDS ORDERED: Dextrose 50% Abboject 50 ML SYRINGE SLOW IVP PRN (16:44)
[2022-02-18] MEDS ORDERED: Dextrose 5% in Water 1,000 ML IV PRN (16:44)
[2022-02-18] MEDS ORDERED: Lorazepam 1 MG TAB PO PRN (18:08)
[2022-02-18] MEDS: Thiamine HCl 200 MG/2 ML VIAL SLOW IVP SCH (18:11)
[2022-02-18] MEDS ORDERED: cloNIDine 0.1 MG TAB PO SCH (22:00)
[2022-02-19] MEDS: Lorazepam 1 MG TAB PO SCH ×3 (01:17→12:11)
[2022-02-19] MEDS: Sodium Chloride 0.9% 1,000 ML IV SCH ×2 (01:18→07:29)
[2022-02-19 04:29] LABS: Anion Gap 13 mmol/L (10-20); BUN (Urea Nitrogen) 5 mg/dL (8.9-20.6); Calc. Creatinine Clearance 168 mL/min (70-130); Calcium 7.7 mg/dL (7.8-10.44); Carbon Dioxide 24 mmol/L (22-29); Chloride 105 mmol/L (98-107); Estimated GFR 127; Glucose 164 mg/dL (70-105); Potassium 3.8 mmol/L (3.5-5.1); Sodium 138 mmol/L (136-145)
[2022-02-19] MEDS: Enoxaparin Sodium 40 MG/0.4 ML SYRINGE SC SCH (09:21)
[2022-02-19] MEDS: Folic Acid 1 MG TAB PO SCH (09:22)
[2022-02-19] MEDS: Multivit, Therapeutic 1 TAB PO SCH (09:22)
[2022-02-19] MEDS: Lactated Ringer's 1,000 ML IV SCH ×2 (12:11→23:36)
[2022-02-19] MEDS ORDERED: Lorazepam 1 MG TAB PO PRN (18:08)
[2022-02-19] MEDS: Lorazepam 0.5 MG TAB PO SCH (18:26)
[2022-02-19] MEDS: Thiamine HCl 200 MG/2 ML VIAL SLOW IVP SCH (18:26)
[2022-02-19] MEDS: Famotidine 20 MG TAB PO SCH (20:58)
[2022-02-20] MEDS: Lorazepam 0.5 MG TAB PO SCH ×3 (00:10→12:07)
[2022-02-20 04:44] LABS: Anion Gap 15 mmol/L (10-20); BUN (Urea Nitrogen) 5 mg/dL (8.9-20.6); Calc. Creatinine Clearance 180 mL/min (70-130); Calcium 8.3 mg/dL (7.8-10.44); Carbon Dioxide 21 mmol/L (22-29); Chloride 104 mmol/L (98-107); Estimated GFR 129; Glucose 173 mg/dL (70-105); Potassium 3.7 mmol/L (3.5-5.1); Sodium 136 mmol/L (136-145)
[2022-02-20] MEDS: Lactated Ringer's 1,000 ML IV SCH (06:15)
[2022-02-20] MEDS: Famotidine 20 MG TAB PO SCH (07:14)
[2022-02-20] MEDS: Enoxaparin Sodium 40 MG/0.4 ML SYRINGE SC SCH (07:14)
[2022-02-20] MEDS: Multivit, Therapeutic 1 TAB PO SCH (07:14)
[2022-02-20] MEDS: Folic Acid 1 MG TAB PO SCH (07:14)
[2022-02-20 10:06] LABS: #Eosinphils 0.1 thou/uL (0.0-0.7); #Monocytes 0.5 thou/uL (0.11-0.59); #Neutrophils 3.2 thou/uL (1.40-6.50); %Basophils 0.9 % (0.0-1.0); %Eosinophils 1.5 % (0.0-10.0); %Lymphocytes 20.4 % (21.0-51.0); %Neutrophils 66.2 % (42.0-75.0); Mean Corpuscular HGB CONC 34.1 g/dL (32.0-36.0); Mean Corpuscular Hemoglobin 32.5 pg (27.0-31.0); Mean Corpuscular Volume 95.3 fL (78.0-98.0); Mean Platelet Volume 7.3 fL (7.4-10.4); Platelet Count 192 thou/uL (130-400); RBC Distribution Width 11.3 % (11.5-14.5); White Blood Cell (WBC) Count 4.8 thou/uL (4.8-10.8)
[2022-02-20 11:15] VITALS: TEMP 97.9
[2022-02-20] MEDS ORDERED: Lorazepam 0.5 MG TAB PO PRN (18:08)
[2022-02-20] MEDS ORDERED: Thiamine 100 MG TAB PO SCH (18:15)
== END 2022-02-20 15:03 | disposition home or self-care (01) | DRG 438 ==
LOC: ERS 13:44 → ERHOLD 17:01 → IMCU/EMU 18:48
PROVIDERS: ADMIT Internal Medicine; ATTEND Internal Medicine
DX: K85.20 Alcohol induced acute pancreatitis without necrosis or infection (principal); E11.10 Type 2 diabetes mellitus with ketoacidosis without coma; Z20.822 Contact with and (suspected) exposure to COVID-19; F10.20 Alcohol dependence, uncomplicated; Z79.4 Long term (current) use of insulin; Z79.84 Long term (current) use of oral hypoglycemic drugs; Z79.899 Other long term (current) drug therapy; Z83.3 Family history of diabetes mellitus; Z71.6 Tobacco abuse counseling
CPT/HCPCS: 36415; 36416; 74177; 80048; 80053; 82010; 82805; 83690; 85025; 93005; 94760; 96374; 96375; J0360; J1650; J1815; J2270; J2405; J3411; J3480; J7050; J7120; Q9967; U0002

== ENCOUNTER 2023-12-05 11:33 | Inpatient (IN) | payer SELFPAY ==
[2023-12-05 12:24] LABS: #Basophils 0.15 10x3/uL (0.0-0.2); #Eosinphils Less than 0.03 10x3/uL (0.0-0.7); %Basophils 0.6 % (0.0-1.0); %Eosinophils 0.1 % (0.0-10.0); %Lymphocytes 5.7 % (21.0-51.0); %Monocytes 7.2 % (0.0-10.0); Hematocrit 44.8 % (42.0-52.0); Hemoglobin 15.5 g/dL (14.0-18.0); Mean Corpuscular HGB CONC 34.6 g/dL (32.0-36.0); Mean Corpuscular Hemoglobin 32.1 pg (27.0-31.0); Mean Corpuscular Volume 92.8 fL (78.0-98.0); Mean Platelet Volume 10.2 fL (7.4-10.4); Platelet Count 353 10x3/uL (130-400); RBC Distribution Width 11.9 % (11.5-14.5); Red Blood Cell (RBC) Count 4.83 mill/uL (4.70-6.10)
[2023-12-05 12:31] LABS: Base Excess -27.5 mEq/L (-2.0 to +3.0); Calcium, Ionized (venous) 1.19 mmol/L (1.16-1.32); Chloride (VBG) 96 mmol/L (98-106); Hematocrit-VBG 49 % (42.0-52.0); Hemoglobin (Hb) 16.7 g/dL (13.2-17.3); Potassium (VBG) 4.66 mmol/L (3.70-5.30); Sodium 135 mmol/L (133-146); pH (venous) 6.922 (7.32-7.43)
[2023-12-05 12:32] LABS: Actual Bicarbonate (HCO3v) 3.9 mEq/L (22-28)
[2023-12-05 12:53] LABS: Phosphorus 5.2 mg/dL (2.3-4.7)
[2023-12-05 12:58] LABS: ALT (SGPT) 30 U/L (8-55); AST (SGOT) 41 U/L (5-34); Albumin 4.7 g/dL (3.5-5.0); Alkaline Phosphatase 128 U/L (40-110); BUN (Urea Nitrogen) 17 mg/dL (8.9-20.6); Bilirubin, Total 0.3 mg/dL (0.2-1.2); Calc. Creatinine Clearance 0 mL/min (70-130); Calcium 8.9 mg/dL (7.8-10.44); Carbon Dioxide Less than 8 mmol/L (22-29); Chloride 97 mmol/L (98-107); Estimated GFR 54; Globulin 3.7 g/dL (2.4-3.5); Glucose 568 mg/dL (70-105); Potassium 4.5 mmol/L (3.5-5.1); Protein, Total 8.4 g/dL (6.0-8.3); Sodium 131 mmol/L (136-145)
[2023-12-05] MEDS ORDERED: Sodium Bicarb 50 MEQ/50 ML Abboject 8.4% SYRINGE ONE (12:58)
[2023-12-05 13:02] LABS: Lipase 48 U/L (8-78)
[2023-12-05] MEDS ORDERED: INSULIN REGULAR IN 0.9 % NACL 100 UNITS/100 ML BAG ONE (13:31)
[2023-12-05] MEDS ORDERED: Dextrose 50% Abboject 50 ML SYRINGE SLOW IVP PRN (13:36)
[2023-12-05] MEDS ORDERED: Sodium Chloride 0.9% 1,000 ML IV PRN ×4 (13:36)
[2023-12-05] MEDS ORDERED: Dextrose 5 %-0.45 % NaCl 1,000 ML IV PRN (13:36)
[2023-12-05] MEDS ORDERED: Electrolyte Replacement Protocol 1 EACH IVPB SCH (13:36)
[2023-12-05] MEDS ORDERED: NS 0.9% w/ 20 MEQ KCL 1,000 ML IV PRN ×2 (13:36)
[2023-12-05] MEDS ORDERED: NS 0.9% w/ 20 MEQ KCL 1,000 ML ONE (13:38)
[2023-12-05] MEDS ORDERED: Insulin Reg, Human 100 UNITS in Sodium Chloride 0.9% 100 ML IVPB SCH (13:45)
[2023-12-05 14:04] LABS: Bilirubin Negative (Negative); Blood, Urine 1+ (Negative); CAUTI Indications for Culture Alt mental st,lethar; Clarity Clear (Clear); Glucose, Urine (Dipstick) Greater than 1000 mg/dL (Negative); Ketone, Urine Greater than 150 mg/dL (Negative); Leukocyte 25 Leu/uL (Negative); Nitrite Negative (Negative); Protein, Urine (Dipstick) 50 mg/dL (Neg-Trace); RBC/HPF 0-3 HPF (0-3); Specific Gravity, Urine 1.022 (1.002-1.036); Squamous Epithelial 0-3 HPF (0-3); Urobilinogen Normal mg/dL (Less than 2); WBC/HPF 0-3 HPF (0-3); pH, Urine 5.5 (5.0-9.0)
[2023-12-05 14:25] LABS: Bacteria/HPF Rare-Few HPF (None Seen)
[2023-12-05 14:26] LABS: Urine Culture Reflex No No
[2023-12-05 15:37] VITALS: BMI 22.4
[2023-12-05] MEDS: Magnesium 2 GM/50 ML(in water) 2 GM in Premix 1 BAG IVPB SCH (16:22)
[2023-12-05] MEDS: Heparin 5,000 UNITS/ML VIAL SC SCH (16:22)
[2023-12-05 16:47] LABS: BUN (Urea Nitrogen) 15 mg/dL (8.9-20.6); Calc. Creatinine Clearance 58 mL/min (70-130); Calcium 8.3 mg/dL (7.8-10.44); Carbon Dioxide Less than 8 mmol/L (22-29); Chloride 109 mmol/L (98-107); Estimated GFR 58; Glucose 300 mg/dL (70-105); Magnesium 1.9 mg/dL (1.6-2.6); Phosphorus 3.7 mg/dL (2.3-4.7); Sodium 139 mmol/L (136-145)
[2023-12-05] MEDS: Morphine 2 MG/ML VIAL SLOW IVP SCH (17:26)
[2023-12-05] MEDS: Potassium Chloride 20 MEQ in Premix 1 BAG IVPB SCH (17:27)
[2023-12-05] MEDS: Sodium Bicarbonate 150 MEQ in Dextrose 5% in Water 1,000 ML IV SCH (17:30)
[2023-12-05 19:06] LABS: Base Excess -21.2 mEq/L (-2.0 to +3.0); Chloride (VBG) 107 mmol/L (98-106); Hematocrit-VBG 48 % (42.0-52.0); Hemoglobin (Hb) 16.4 g/dL (13.2-17.3); Potassium (VBG) 4.77 mmol/L (3.70-5.30); Sodium 143 mmol/L (133-146)
[2023-12-05 19:08] LABS: Actual Bicarbonate (HCO3v) 6.2 mEq/L (22-28); pH (venous) 7.114 (7.32-7.43)
[2023-12-05 19:24] LABS: BUN (Urea Nitrogen) 11 mg/dL (8.9-20.6); Calc. Creatinine Clearance 73 mL/min (70-130); Carbon Dioxide Less than 8 mmol/L (22-29); Chloride 111 mmol/L (98-107); Estimated GFR 76; Glucose 146 mg/dL (70-105); Potassium 4.6 mmol/L (3.5-5.1); Sodium 138 mmol/L (136-145)
[2023-12-05] MEDS: Morphine 2 MG/ML VIAL SLOW IVP PRN (21:22)
[2023-12-05] MEDS: D5 1/2 NS w/20 mEq KCL 1,000 ML IV PRN (22:04)
[2023-12-05] MEDS: Ondansetron PF 4 MG/2 ML Vial IVP SCH (23:14)
[2023-12-06 01:13] LABS: Anion Gap 18 mmol/L (10-20); BUN (Urea Nitrogen) 9 mg/dL (8.9-20.6); Calc. Creatinine Clearance 82 mL/min (70-130); Calcium 7.9 mg/dL (7.8-10.44); Carbon Dioxide 12 mmol/L (22-29); Chloride 108 mmol/L (98-107); Estimated GFR 87; Glucose 219 mg/dL (70-105); Potassium 3.7 mmol/L (3.5-5.1); Sodium 134 mmol/L (136-145)
[2023-12-06 04:09] LABS: #Basophils 0.03 10x3/uL (0.0-0.2); %Basophils 0.3 % (0.0-1.0); %Eosinophils 0.6 % (0.0-10.0); %Lymphocytes 6.9 % (21.0-51.0); %Monocytes 8.5 % (0.0-10.0); %Neutrophils 83.3 % (42.0-75.0); Hemoglobin 13.3 g/dL (14.0-18.0); Mean Corpuscular HGB CONC 36.9 g/dL (32.0-36.0); Mean Corpuscular Hemoglobin 31.7 pg (27.0-31.0); Mean Corpuscular Volume 85.7 fL (78.0-98.0); Mean Platelet Volume 9.6 fL (7.4-10.4); Platelet Count 214 10x3/uL (130-400); RBC Distribution Width 11.9 % (11.5-14.5)
[2023-12-06 04:31] LABS: Anion Gap 13 mmol/L (10-20); BUN (Urea Nitrogen) 8 mg/dL (8.9-20.6); Calc. Creatinine Clearance 98 mL/min (70-130); Carbon Dioxide 14 mmol/L (22-29); Chloride 109 mmol/L (98-107); Estimated GFR 107; Glucose 193 mg/dL (70-105); Potassium 3.5 mmol/L (3.5-5.1); Sodium 132 mmol/L (136-145)
[2023-12-06] MEDS ORDERED: Ondansetron PF 4 MG/2 ML Vial IVP PRN (06:31)
[2023-12-06] MEDS: Potassium Chloride 20 MEQ in Premix 1 BAG IVPB SCH (08:15)
[2023-12-06 09:58] LABS: Anion Gap 10 mmol/L (10-20); BUN (Urea Nitrogen) 6 mg/dL (8.9-20.6); Calc. Creatinine Clearance 119 mL/min (70-130); Calcium 8.1 mg/dL (7.8-10.44); Carbon Dioxide 16 mmol/L (22-29); Chloride 110 mmol/L (98-107); Estimated GFR 119; Glucose 143 mg/dL (70-105); Potassium 3.8 mmol/L (3.5-5.1); Sodium 132 mmol/L (136-145)
[2023-12-06] MEDS ORDERED: Dextrose 5% in Water 1,000 ML IV PRN (11:17)
[2023-12-06] MEDS ORDERED: Glucagon 1 MG/ML KIT IM PRN (11:17)
[2023-12-06] MEDS ORDERED: Dextrose 50% Abboject 50 ML SYRINGE SLOW IVP PRN (11:17)
[2023-12-06] MEDS: Insulin Glargine 30 UNITS/0.3 ML VIAL SC SCH ×2 (12:32→21:30)
[2023-12-06 13:19] LABS: Hemoglobin A1c 11.2 % (4.0-6.0)
[2023-12-06 13:22] LABS: Anion Gap 9 mmol/L (10-20); BUN (Urea Nitrogen) 5 mg/dL (8.9-20.6); Calc. Creatinine Clearance 130 mL/min (70-130); Calcium 7.3 mg/dL (7.8-10.44); Carbon Dioxide 16 mmol/L (22-29); Chloride 110 mmol/L (98-107); Estimated GFR 122; Glucose 425 mg/dL (70-105); Potassium 5.6 mmol/L (3.5-5.1); Sodium 129 mmol/L (136-145)
[2023-12-06 14:15] LABS: ALT (SGPT) 16 U/L (8-55); AST (SGOT) 21 U/L (5-34); Albumin 3.1 g/dL (3.5-5.0); Alkaline Phosphatase 69 U/L (40-110); Anion Gap 11 mmol/L (10-20); BUN (Urea Nitrogen) 5 mg/dL (8.9-20.6); Bilirubin, Total 0.4 mg/dL (0.2-1.2); Calc. Creatinine Clearance 115 mL/min (70-130); Calcium 8.1 mg/dL (7.8-10.44); Carbon Dioxide 18 mmol/L (22-29); Chloride 106 mmol/L (98-107); Estimated GFR 117; Globulin 2.4 g/dL (2.4-3.5); Glucose 287 mg/dL (70-105); Potassium 4.1 mmol/L (3.5-5.1); Protein, Total 5.5 g/dL (6.0-8.3); Sodium 131 mmol/L (136-145)
[2023-12-06] MEDS: HumaLOG 300 UNITS/3 ML VIAL SC PRN (14:51)
[2023-12-07 07:08] LABS: #Basophils Less than 0.03 10x3/uL (0.0-0.2); %Basophils 0.4 % (0.0-1.0); %Eosinophils 2.1 % (0.0-10.0); %Lymphocytes 23.4 % (21.0-51.0); %Monocytes 9.6 % (0.0-10.0); %Neutrophils 64.1 % (42.0-75.0); Hematocrit 35.9 % (42.0-52.0); Hemoglobin 12.9 g/dL (14.0-18.0); Mean Corpuscular HGB CONC 35.9 g/dL (32.0-36.0); Mean Corpuscular Hemoglobin 32.2 pg (27.0-31.0); Mean Corpuscular Volume 89.5 fL (78.0-98.0); Mean Platelet Volume 10.1 fL (7.4-10.4); Platelet Count 181 10x3/uL (130-400); RBC Distribution Width 12.4 % (11.5-14.5); Red Blood Cell (RBC) Count 4.01 mill/uL (4.70-6.10)
[2023-12-07 07:40] LABS: Anion Gap 12 mmol/L (10-20); BUN (Urea Nitrogen) 5 mg/dL (8.9-20.6); Calc. Creatinine Clearance 127 mL/min (70-130); Calcium 8.2 mg/dL (7.8-10.44); Carbon Dioxide 21 mmol/L (22-29); Chloride 104 mmol/L (98-107); Estimated GFR 121; Glucose 166 mg/dL (70-105); Potassium 3.3 mmol/L (3.5-5.1); Sodium 134 mmol/L (136-145)
[2023-12-07] MEDS: Thiamine 100 MG TAB PO SCH (08:52)
[2023-12-07] MEDS: Folic Acid 1 MG TAB PO SCH (08:52)
[2023-12-07] MEDS: Potassium Chloride 20 MEQ TAB PO SCH (08:52)
[2023-12-07 09:08] VITALS: BP 95/62; TEMP 98.8
== END 2023-12-07 10:51 | disposition home or self-care (01) | DRG 638 ==
LOC: SUATTDRO 11:33 → ERS 11:33 → IMCU/EMU 14:59 → T4-A 12-07 00:52
PROVIDERS: ADMIT Family Medicine; ATTEND Family Medicine
DX: E11.10 Type 2 diabetes mellitus with ketoacidosis without coma (principal); N17.9 Acute kidney failure, unspecified; I10 Essential (primary) hypertension; Z91.148 Patient's other noncompliance with medication regimen for other reason; Z79.4 Long term (current) use of insulin; Z79.84 Long term (current) use of oral hypoglycemic drugs; Z79.899 Other long term (current) drug therapy; E11.649 Type 2 diabetes mellitus with hypoglycemia without coma
CPT/HCPCS: 36415; 36416; 80048; 80053; 81001; 82010; 82805; 83036; 83690; 83735; 84100; 84443; 85025; 96361; 96365; 96375; J1644; J1815; J2272; J2405; J3475; J3480; J7070